=== PATIENT | female | born 1940 | race Caucasian/White ===

== ENCOUNTER 2016-09-29 11:30 | Emergency (ER) | payer MEDICARE ==
[~2016-09-29] VITALS: Ht 160 cm; Wt 55.0 kg
[~2016-09-29 11:30] MED LIST: BENA20 PO; CALC-137 PO; CYMB30CA PO; ECASA PO; OMEP20TA39 PO; PRAV80TA PO; TOPA200T4 PO; VITA100017 PO; VITA200T5 PO; tegretol
[2016-09-29 11:38] VITALS: BP 121/86; PULSE 86; RESP 16; TEMP 98.6; O2SAT 98
[2016-09-29] MEDS ORDERED: TOPA25TA8 PO (11:52)
[2016-09-29] MEDS ORDERED: ASPI-110 PO (11:52)
[2016-09-29] MEDS ORDERED: VITA10007 PO (11:52)
[2016-09-29] MEDS ORDERED: PRAV80TA2 PO (11:52)
[2016-09-29] MEDS ORDERED: OMEP20TA PO (11:52)
[2016-09-29] MEDS ORDERED: CARB200T PO (11:52)
[2016-09-29] MEDS ORDERED: BENA20TA PO (11:52)
[2016-09-29] MEDS ORDERED: CALC1TAB30 PO (11:52)
[2016-09-29] MEDS ORDERED: LIDOCAINE 1%/EPINEPHrine 1:100,000 SOLN 20 ML VIAL INFIL ONE (12:00)
--- NOTE | 2016-09-29 12:02 | PD ---
HPI Chief Complaint: Laceration/Skin Injury Time Seen by Provider: 12:01 Travel History International Travel<30 days: No Contact w/Intl Traveler<30days: No Traveled to known affect area: No History of Present Illness HPI Patient comes in for evaluation status post trip and fall. Patient was running after a [employer] people when she tripped on the sidewalk injuring her left knee and hitting side of her head. Patient denies any loss of consciousness, neck pain, numbness or tingling anywhere, chest pain, shortness of breath, change in vision, dizziness, nausea, or vomiting. Patient denies doing anything for this prior to coming to the emergency department. Patient reports only blood thinner she takes is aspirin a day. Patient's last tetanus shot was 2013. PFSH Past Medical History Hx Anticoagulant Therapy: Yes (ASPIRIN) Arthritis: Yes Blood Disorders: No Heart Rhythm Problems: No Cancer: No Cardiovascular Problems: Yes High Cholesterol: Yes Chest Pain: No Congestive Heart Failure: No Diabetes: No Diminished Hearing: No Endocrine: No Gastrointestinal Disorders: Yes (GERD) GERD: Yes Genitourinary: No Hypertension: Yes Immune Disorder: No Implanted Vascular Access Dvce: No Musculoskeletal: No Neurologic: Yes (TRIGEMINA NEURALGIA) Psychiatric: No Reproductive: No Respiratory: No ?: Not Past Surgical History Tonsillectomy: Yes Other Surgery: No Social History Alcohol Use: No Tobacco Use: No Substance Use: No Allergies-Medications (Allergen,Severity, Reaction): Coded Allergies: No Known Allergies (Verified , 09/29/16) Reported Meds & Prescriptions Reported Meds & Active Scripts Active Reported Topamax (Topiramate) 25 Mg Tab 25 Mg PO BID Carbamazepine 200 Mg Tab 400 Mg PO BID Omeprazole 20 Mg Tab 20 Mg PO DAILY Aspirin 81 (Aspirin) 81 Mg Tabdr 81 Mg PO DAILY Calcium 600 + D (Calcium Carbonate-Cholecalciferol) 600-200 Mg-Unit Tab 2 Tab PO DAILY Vitamin C (Ascorbic Acid) 1,000 Mg Tab 2,000 Mg PO DAILY Pravastatin 80 Mg Tab 80 Mg PO HS Benazepril (Benazepril HCl) 20 Mg Tab 20 Mg PO BID Review of Systems Except as stated in HPI: all other systems reviewed are Neg Physical Exam Narrative GENERAL: Well-developed, well nourished, in no acute distress, and non-ill appearing. SKIN: Warm and dry. Laceration of the left temporal and skin tear over her anterior left knee. HEAD: Atraumatic. Normocephalic. EYES: Pupils equal and round. EOMI. No scleral icterus. No injection or drainage. ENT: No nasal bleeding or discharge. Mucous membranes pink and moist. NECK: Trachea midline. Supple. No nuclear rigidity. RESPIRATORY: No accessory muscle use. No respiratory distress. MUSCULOSKELETAL: No obvious deformities. No clubbing. No cyanosis. No edema. Full range of motion. NEUROLOGICAL: Awake and alert. No obvious cranial nerve deficits. Motor grossly within normal limits. Normal speech. PSYCHIATRIC: Appropriate mood and affect; insight and judgment normal. Data Data Last Documented VS Vital Signs Date Time Temp Pulse Resp B/P Pulse Ox O2 Delivery O2 Flow Rate FiO2 09/29/16 11:38 98.6 86 16 121/86 98 Orders Lidocai-Epi 1%-1:100,000 Inj (Xylocaine- (09/29/16 12:00) Ct Brain W/O Iv Contrast(Rout) (09/29/16 ) Ct Cerv Spine W/O Contrast (09/29/16 ) Knee, Complete (4vws) (09/29/16 ) [facility] Medical Decision Making Medical Screen Exam Complete: Yes Emergency Medical Condition: Yes Differential Diagnosis Head injury, intracranial hemorrhage, fracture, strain, retained foreign body, laceration, abrasion, other Narrative Course Patient presents with head injury. There was no evidence of cranial or intracranial injury noted on CT of the head and no evidence of fracture or injury to cervical spine on C-spine CT. The patient has been behaving normally and no notable altered mental status. Maris score of 15. The neurologic exam is normal. The patient is awake and aware and motor sensory exams are normal. There is no clinical evidence to support intracranial injury or bleed. The laceration appeared clean and approximated well. There was no evidence to suggest foreign bodies. Visual and tactile exams were unremarkable. There was no evidence of neurovascular injury as well. The patient was irrigated with copious sterile normal saline and primary repair was performed. Please see procedure note. The patient was given signs and symptom warnings for infection, such as increasing pain, redness, swelling, associated heat, pus or fever. The patient was given instructions for timely follow up. The patient agreed with plan of care. Patient in no obvious distress upon re-evaluation. All pertinent Radiology result(s) discussed with patient/family. Any questions/concerns in reference to patient diagnosis/condition discussed and clarified prior to patient's discharge. Reinforced sheer importance of close follow up with patient's primary physician or primary care clinic. Instructed patient to return to ED immediately, if symptoms return/worsen. Pt showed understanding of above instructions. Further instructions and recommendations were detailed in discharge paperwork. Pt ambulated without difficulty out of ED at discharge. Procedures Procedure Narrative LACERATION REPAIR LOCATION: Left temporal at the hairline LENGTH: Proximately 1.5 cm. NUMBER OF STITCHES/BEN: 3 simple interrupted REPAIR: Verbal consent was obtained. The area of the laceration was cleaned and prepped. The laceration was infiltrated with lidocaine with epi. The wound was copiously irrigated and explored without evidence of foreign body, bony involvement, ligament injury, tendon injury, or neurovascular injury. The wound was closed using 5-0 Vicryl. This was a single layer repair. The patient was advised to keep the affected area as clean and dry as possible using soap and water. There were no complications. Patient tolerated the procedure well. Skin tear REPAIR LOCATION: Left anterior knee skin tear LENGTH: Approximately 2 cm C-shaped NUMBER OF STITCHES/BEN: 3 simple interrupted REPAIR: Verbal consent was obtained. The area of the laceration was cleaned and prepped. The laceration was infiltrated with lidocaine with epi. The wound was copiously irrigated and explored without evidence of foreign body, bony involvement, ligament injury, tendon injury, or neurovascular injury. The wound was closed using 5-0 Vicryl. This was a single layer repair. A sterile dressing was applied by nurse. The patient was advised to keep the affected area as clean and dry as possible using soap and water. There were no complications. Patient tolerated the procedure well. Diagnosis Primary Impression: Head injury Qualified Code: S09.90XA - Head injury, initial encounter Additional Impressions: Laceration Skin tear of left upper extremity Fall Qualified Code: W19.XXXA - Fall, initial encounter Patient Instructions: Care For Your Absorbable Stitches (ED), Facial Laceration (ED), General Instructions, Head Injury (ED), Skin Tear (ED) Additional Instructions: Follow-up with your primary care physician in this week for reevaluation. Keep wound dry and clean as possible using soap and water. Return to the emergency department if symptoms get worse. Do not participate in any activities that may cause another head injury until reevaluated and cleared by your primary care physician. Return to the emergency department immediately if any uncontrolled vomiting, change in mental status, inability to walk normally, worsening headache, or for other concerns. Disposition: 01 DISCHARGE HOME Condition: Stable Edd Carranza Sep 29, 2016 12:02
--- NOTE | 2016-09-29 12:26 | RADHPO ---
EXAM DATE/TIME: 09/29/2016 12:12 [facility] COMPARISON: No previous studies available for comparison. INDICATIONS : Left knee pain after fall. MEDICAL HISTORY : None. SURGICAL HISTORY : None. ENCOUNTER: Initial ACUITY: 1 day PAIN SCORE: 10/10 LOCATION: Left anterior knee FINDINGS: Four view examination of the left knee demonstrates no evidence of fracture or dislocation. Mild ost eoarthritis. Bony mineralization is normal. The articular surfaces are intact. The suprapatellar so ft tissues have a normal configuration. CONCLUSION: Mild osteoarthritis without fracture. Jean Marie Hicks MD on September 29, 2016 at 12:24 Board Certified Radiologist. This report was verified electronically.
--- NOTE | 2016-09-29 12:33 | RADHPO ---
EXAM DATE/TIME: 09/29/2016 12:19 [facility] COMPARISON: CT BRAIN W/O CONTRAST, December 26, 2015, 14:08. INDICATIONS : Fell and hit head this morning. RADIATION DOSE: 60.92 CTDIvol (mGy) MEDICAL HISTORY : Hypertension. SURGICAL HISTORY : Tonsillectomy. ENCOUNTER: Initial ACUITY: 1 day PAIN SCALE: 3/10 LOCATION: Left temporal TECHNIQUE: Multiple contiguous axial images were obtained of the head. Using automated exposure control and adj ustment of the mA and/or kV according to patient size, radiation dose was kept as low as reasonably a chievable to obtain optimal diagnostic quality images. FINDINGS: CEREBRUM: The ventricles are normal for age. No evidence of midline shift, mass lesion, hemorrhage or acute in farction. No extra-axial fluid collections are seen. POSTERIOR FOSSA: The cerebellum and brainstem are intact. The 4th ventricle is midline. The cerebellopontine angle i s unremarkable. EXTRACRANIAL: The visualized portion of the orbits is intact. SKULL: The calvaria is intact. No evidence of skull fracture. CONCLUSION: Negative trauma CT. Pro Harding MD on September 29, 2016 at 12:30 Board Certified Radiologist. This report was verified electronically.
--- NOTE | 2016-09-29 13:09 | RADHPO ---
EXAM DATE/TIME: 09/29/2016 12:19 [facility] COMPARISON: No previous studies available for comparison. INDICATIONS : Fell and hit head this morning. Neck pain. RADIATION DOSE: 25.76 CTDIvol (mGy) MEDICAL HISTORY : Hypertension. SURGICAL HISTORY : Tonsillectomy. ENCOUNTER: Initial ACUITY: 1 day PAIN SCALE: 3/10 LOCATION: neck TECHNIQUE: Volumetric scanning of the cervical spine was performed. Multiplanar reconstructions in the sagittal, coronal and oblique axial planes were performed. Using automated exposure control and adjustment o f the mA and/or kV according to patient size, radiation dose was kept as low as reasonably achievable to obtain optimal diagnostic quality images. FINDINGS: The sagittal reconstructions demonstrate that the vertebral bodies are intact and there are normal pr evertebral soft tissues. The dens is intact and there is a normal atlantoaxial relationship. There is a grade 1 anterospondylolisthesis of C4 on C5 approximately 4 mm. Degenerative disc changes are pres ent greatest at the C5-6 and C6-7 levels with disc space narrowing and hypertrophic change. There is mild retrolisthesis of C6 on C7 of approximately 2 mm. There is diffuse osteopenia. The axial images demonstrate that the vertebral bodies and posterior elements are intact. The soft ti ssues are within normal limits. There is no evidence of acute fracture or malalignment. Degenerative hypertrophic changes noted involving the left C3-4 facet. There are disc osteophyte complexes at the C5-6 and C6-7 levels. CONCLUSION: 1. No acute fracture. 2. Grade 1 anterior spondylolisthesis of C4 on C5 of approximately 4 mm. 3. Mild retrolisthesis of C6 on C7. 4. Degenerative disc and degenerative joint changes. Pro Harding MD on September 29, 2016 at 13:02 Board Certified Radiologist. This report was verified electronically.
== END 2016-09-29 13:43 | disposition home or self-care (01) ==
LOC: PHEFT 11:30
DX: S01.01XA Laceration without foreign body of scalp, initial encounter (principal); S81.012A Laceration without foreign body, left knee, initial encounter; W01.0XXA Fall on same level from slipping, tripping and stumbling without subsequent striking against object, initial encounter; Y93.02 Activity, running; Y92.480 Sidewalk as the place of occurrence of the external cause
CPT/HCPCS: 12001; 12011; 70450; 72125; 73564

== ENCOUNTER 2017-06-10 21:25 | Observation (INO) | payer MEDICARE ==
[~2017-06-10] VITALS: Ht 160 cm; Wt 58.5 kg
[~2017-06-10 21:25] MED LIST changes: +ASPI-110 PO; -BENA20 PO; +BENA20TA PO; -CALC-137 PO; +CALC1TAB30 PO; +CARB200T PO; -CYMB30CA PO; -ECASA PO; +GADODIAMIDE PF 287 MG/ML 20 ML VIAL (for RAD MRI) IV PUSH ONE; +OMEP20TA PO; -OMEP20TA39 PO; -PRAV80TA PO; +PRAV80TA2 PO; -TOPA200T4 PO; +TOPA25TA8 PO; -VITA100017 PO; +VITA10007 PO; -VITA200T5 PO; -tegretol
[2017-06-10 21:39] VITALS: BP 164/88; PULSE 88; RESP 18; TEMP 98.1; O2SAT 97
[2017-06-10 21:50] VITALS: BP 164/79; PULSE 80; RESP 20; TEMP 98; O2SAT 97
[2017-06-10] MEDS ORDERED: SODIUM CHLORIDE 0.9% FLUSH 10 ML FLUSH IVF PRN (22:00)
[2017-06-10 22:14] VITALS: O2SAT 97
[2017-06-10 22:14] LABS: AUTOMATED NEUTROPHIL # 3.9 TH/MM3 (1.8-7.7); BASOPHIL % 0.5 % (0.0-2.0); EOSINOPHIL # 0.1 TH/MM3 (0-0.4); EOSINOPHIL % 2.1 % (0.0-4.0); HEMATOCRIT 37.7 % (35.0-46.0); HEMO FLAGS DIFF FINAL; LYMPH % 20.1 % (9.0-44.0); LYMPHOCYTE # 1.1 TH/MM3 (1.0-4.8); MEAN CELL VOLUME 92.5 FL (80.0-100.0); MEAN CORPUSCULAR HGB CONC 32.4 % (32.0-36.0); MONO % 9.5 % (0.0-8.0); NEUT % 67.8 % (16.0-70.0); PLATELET COUNT 270 TH/MM3 (150-450); RED BLOOD COUNT 4.08 MIL/MM3 (4.00-5.30); WHITE BLOOD COUNT 5.6 TH/MM3 (4.0-11.0)
--- NOTE | 2017-06-10 22:22 | PD ---
HPI Chief Complaint: Altered Mental Status Time Seen by Provider: 21:48 Travel History International Travel<30 days: No Contact w/Intl Traveler<30days: No Traveled to known affect area: No History of Present Illness HPI Patient is a 77-year-old female with history of hypertension, hyperlipidemia, diabetes, presents to the emergency room with her family members for evaluation of altered mental status. As per pt's family, patient was last seen normal 2 hours prior to presentation to the emergency room. Reports that she came out of her room around 9;20 PM in a tshirt and underwear saying that she was tired and wanted to go to bed early. Pt's family reports that she never just wears a tshirt and underwear. Reports that she appeared to be acting altered tonight. Reports that she was slurring her speech, reports that she had an abnormal gait. Reports concerns for possible CVA. Family reports the patient speech has improved upon arrival to the emergency room, reports that her ataxia has also improved. Reports concerns as pt's on Tuesday (he was taken off of life support). Denies history of CVA in the past. Patient at this time denies headache/dizzyness. Denies chest pain/sob. Denies abdominal pain. Denies n/v. NO other c/o oat this time. PFSH Past Medical History Hx Anticoagulant Therapy: Yes (ASPIRIN) Arthritis: Yes Blood Disorders: No Heart Rhythm Problems: No Cancer: No Cardiovascular Problems: Yes High Cholesterol: Yes Chest Pain: No Congestive Heart Failure: No Diabetes: No Diminished Hearing: No Endocrine: No Gastrointestinal Disorders: Yes (GERD) GERD: Yes Genitourinary: No Hypertension: Yes Immune Disorder: No Implanted Vascular Access Dvce: No Musculoskeletal: No Neurologic: Yes (TRIGEMINA NEURALGIA) Psychiatric: No Reproductive: No Respiratory: No Past Surgical History Tonsillectomy: Yes Other Surgery: No Social History Alcohol Use: No Tobacco Use: No Substance Use: No Allergies-Medications (Allergen,Severity, Reaction): Coded Allergies: No Known Allergies (Verified , 09/29/16) Reported Meds & Prescriptions Reported Meds & Active Scripts Active Reported Topamax (Topiramate) 25 Mg Tab 25 Mg PO BID Carbamazepine 200 Mg Tab 400 Mg PO BID Omeprazole 20 Mg Tab 20 Mg PO DAILY Aspirin 81 (Aspirin) 81 Mg Tabdr 81 Mg PO DAILY Pravastatin 80 Mg Tab 80 Mg PO HS Benazepril (Benazepril HCl) 20 Mg Tab 20 Mg PO BID Review of Systems General / Constitutional: No: Fever Eyes: No: Visual changes HENT: No: Headaches Cardiovascular: No: Chest Pain or Discomfort Respiratory: No: Shortness of Breath Gastrointestinal: No: Abdominal Pain Genitourinary: No: Dysuria Musculoskeletal: No: Pain Skin: No Rash Neurologic: Positive: Ataxia, Slurred Speech, No: Weakness Psychiatric: No: Depression Endocrine: No: Polydipsia Hematologic/Lymphatic: No: Easy Bruising Physical Exam Narrative GENERAL: mild distress SKIN: Focused skin assessment warm/dry. HEAD: Atraumatic. Normocephalic. EYES: Pupils equal and round. No scleral icterus. No injection or drainage. ENT: No nasal bleeding or discharge. Mucous membranes pink and moist. NECK: Trachea midline. No JVD. CARDIOVASCULAR: Regular rate and rhythm. No murmur appreciated. RESPIRATORY: No accessory muscle use. Clear to auscultation. Breath sounds equal bilaterally. GASTROINTESTINAL: Abdomen soft, non-tender, nondistended. Hepatic and splenic margins not palpable. MUSCULOSKELETAL: No obvious deformities. No clubbing. No cyanosis. No edema. NEUROLOGICAL: Awake and alert. No obvious cranial nerve deficits. Motor grossly within normal limits. Patient with speech improved as per family, NIH scale 0 PSYCHIATRIC: Appropriate mood and affect; insight and judgment normal. Data Data Last Documented VS Vital Signs Date Time Temp Pulse Resp B/P (MAP) Pulse Ox O2 Delivery O2 Flow Rate FiO2 06/10/17 23:02 73 20 165/79 (107) Room Air 06/10/17 22:14 97 06/10/17 21:50 98.0 Orders Orders Electrocardiogram (06/10/17 22:00) Prothrombin Time / Inr (Pt) (06/10/17 22:00) Act Partial Throm Time (Ptt) (06/10/17 22:00) Complete Blood Count With Diff (06/10/17 22:00) Comprehensive Metabolic Panel (06/10/17 22:00) Creatine Kinase (Cpk) (06/10/17 22:00) Drug Screen, Random Urine (06/10/17 22:00) Troponin I (06/10/17 22:00) Urinalysis - C+S If Indicated (06/10/17 22:00) Ct Brain W/O Iv Contrast(Rout) (06/10/17 22:00) Chest, Single Ap (06/10/17 22:00) Ecg Monitoring (06/10/17 22:00) Iv Access Insert/Monitor (06/10/17 22:00) Oximetry (06/10/17 22:00) Blood Glucose (06/10/17 22:00) Sodium Chloride 0.9% Flush (Ns Flush) (06/10/17 22:00) Alcohol (Ethanol) (06/10/17 22:00) Aspirin Chew (Aspirin Chew) (06/10/17 23:30) Admit Order (Ed Use Only) (06/10/17 23:30) Clopidogrel (Plavix) (06/10/17 23:45) Labs Laboratory Tests Test 06/10/17 22:00 06/10/17 22:58 White Blood Count 5.6 TH/MM3 Red Blood Count 4.08 MIL/MM3 Hemoglobin 12.2 GM/DL Hematocrit 37.7 % Mean Corpuscular Volume 92.5 FL Mean Corpuscular Hemoglobin 30.0 PG Mean Corpuscular Hemoglobin Concent 32.4 % Red Cell Distribution Width 13.0 % Platelet Count 270 TH/MM3 Mean Platelet Volume 7.1 FL Neutrophils (%) (Auto) 67.8 % Lymphocytes (%) (Auto) 20.1 % Monocytes (%) (Auto) 9.5 % Eosinophils (%) (Auto) 2.1 % Basophils (%) (Auto) 0.5 % Neutrophils # (Auto) 3.9 TH/MM3 Lymphocytes # (Auto) 1.1 TH/MM3 Monocytes # (Auto) 0.5 TH/MM3 Eosinophils # (Auto) 0.1 TH/MM3 Basophils # (Auto) 0.0 TH/MM3 CBC Comment DIFF FINAL Differential Comment Prothrombin Time 10.5 SEC Prothromb Time International Ratio 1.0 RATIO Activated Partial Thromboplast Time 28.0 SEC Blood Urea Nitrogen 12 MG/DL Creatinine 0.76 MG/DL Random Glucose 117 MG/DL Total Protein 6.7 GM/DL Albumin 3.6 GM/DL Calcium Level 8.2 MG/DL Alkaline Phosphatase 81 U/L Aspartate Amino Transf (AST/SGOT) 16 U/L Alanine Aminotransferase (ALT/SGPT) 23 U/L Total Bilirubin 0.2 MG/DL Sodium Level 141 MEQ/L Potassium Level 3.8 MEQ/L Chloride Level 104 MEQ/L Carbon Dioxide Level 31.5 MEQ/L Anion Gap 6 MEQ/L Estimat Glomerular Filtration Rate 74 ML/MIN Total Creatine Kinase 176 U/L Troponin I LESS THAN 0.02 NG/ML Ethyl Alcohol Level 4 MG/DL Urine Color YELLOW Urine Turbidity SLIGHT Urine pH 7.0 Urine Specific [place] 1.015 Urine Protein NEG mg/dL Urine Glucose (UA) NEG mg/dL Urine Ketones NEG mg/dL Urine Occult Blood NEG Urine Nitrite NEG Urine Bilirubin NEG Urine Leukocyte Esterase TRACE Urine RBC 0-2 /hpf Urine WBC 3-5 /hpf Urine Squamous Epithelial Cells 0-5 /hpf Urine Amorphous Sediment MOD Urine Bacteria NONE /hpf Microscopic Urinalysis Comment CULT NOT INDICATED Urine Opiates Screen NEG Urine Barbiturates Screen NEG Urine Amphetamines Screen NEG Urine Benzodiazepines Screen NEG Urine Cocaine Screen NEG Urine Cannabinoids Screen NEG MDM Medical Decision Making Medical Screen Exam Complete: Yes Emergency Medical Condition: Yes Medical Record Reviewed: Yes Interpretation(s) EKG at 2212: NSR at 78bpm, qt/qtc: 377/410, incomplete rbbb Vital Signs Date Time Temp Pulse Resp B/P (MAP) Pulse Ox O2 Delivery O2 Flow Rate FiO2 06/10/17 22:21 Room Air 06/10/17 22:14 97 Room Air 06/10/17 21:50 98.0 80 20 164/79 (107) 97 06/10/17 21:39 98.1 88 18 164/88 (113) 97 Differential Diagnosis CVA, TIA, ICH, electrolyte abnormality Narrative Course Patient is a 77-year-old female who is brought to the emergency room for evaluation of altered mental status. As per patient's family members, patient has slurring of speech as well as ataxic gait. Reports that she was last seen normal 2 hours prior to presentation to the ER. Family reports that patient's symptoms have been resolving, reports improvement on speech as well as gait NIH scale currently 0, BS 108 Patient was placed on a rn cardiac rehab upon arrival to the emergency room. Ct of head ordered. lV ordered including labs. Plan to monitor patient and perform serial neurological evaluations Vital Signs Date Time Temp Pulse Resp B/P (MAP) Pulse Ox O2 Delivery O2 Flow Rate FiO2 06/10/17 23:02 73 20 165/79 (107) Room Air 06/10/17 22:21 Room Air 10/27/17 22:14 97 Room Air 06/10/17 21:50 98.0 80 20 164/79 (107) 97 06/10/17 21:39 98.1 88 18 164/88 (113) 97 Laboratory Tests Test 06/10/17 22:00 06/10/17 22:58 White Blood Count 5.6 TH/MM3 (4.0-11.0) Red Blood Count 4.08 MIL/MM3 (4.00-5.30) Hemoglobin 12.2 GM/DL (11.6-15.3) Hematocrit 37.7 % (35.0-46.0) Mean Corpuscular Volume 92.5 FL (80.0-100.0) Mean Corpuscular Hemoglobin 30.0 PG (27.0-34.0) Mean Corpuscular Hemoglobin Concent 32.4 % (32.0-36.0) Red Cell Distribution Width 13.0 % (11.6-17.2) Platelet Count 270 TH/MM3 (150-450) Mean Platelet Volume 7.1 FL (7.0-11.0) Neutrophils (%) (Auto) 67.8 % (16.0-70.0) Lymphocytes (%) (Auto) 20.1 % (9.0-44.0) Monocytes (%) (Auto) 9.5 % (0.0-8.0) Eosinophils (%) (Auto) 2.1 % (0.0-4.0) Basophils (%) (Auto) 0.5 % (0.0-2.0) Neutrophils # (Auto) 3.9 TH/MM3 (1.8-7.7) Lymphocytes # (Auto) 1.1 TH/MM3 (1.0-4.8) Monocytes # (Auto) 0.5 TH/MM3 (0-0.9) Eosinophils # (Auto) 0.1 TH/MM3 (0-0.4) Basophils # (Auto) 0.0 TH/MM3 (0-0.2) CBC Comment DIFF FINAL Differential Comment Prothrombin Time 10.5 SEC (9.8-11.6) Prothromb Time International Ratio 1.0 RATIO Activated Partial Thromboplast Time 28.0 SEC (24.3-30.1) Blood Urea Nitrogen 12 MG/DL (7-18) Creatinine 0.76 MG/DL (0.50-1.00) Random Glucose 117 MG/DL (74-106) Total Protein 6.7 GM/DL (6.4-8.2) Albumin 3.6 GM/DL (3.4-5.0) Calcium Level 8.2 MG/DL (8.5-10.1) Alkaline Phosphatase 81 U/L (45-117) Aspartate Amino Transf (AST/SGOT) 16 U/L (15-37) Alanine Aminotransferase (ALT/SGPT) 23 U/L (10-53) Total Bilirubin 0.2 MG/DL (0.2-1.0) Sodium Level 141 MEQ/L (136-145) Potassium Level 3.8 MEQ/L (3.5-5.1) Chloride Level 104 MEQ/L (98-107) Carbon Dioxide Level 31.5 MEQ/L (21.0-32.0) Anion Gap 6 MEQ/L (5-15) Estimat Glomerular Filtration Rate 74 ML/MIN (>89) Total Creatine Kinase 176 U/L (26-192) Troponin I LESS THAN 0.02 NG/ML Ethyl Alcohol Level 4 MG/DL (0-5) Urine Color YELLOW (YELLW/STRAW) Urine Turbidity SLIGHT (CLEAR) Urine pH 7.0 (5.0-8.5) Urine Specific [place] 1.015 (1.002-1.035) Urine Protein NEG mg/dL (NEG-TRACE) Urine Glucose (UA) NEG mg/dL (NEG) Urine Ketones NEG mg/dL (NEG) Urine Occult Blood NEG (NEG) Urine Nitrite NEG (NEG) Urine Bilirubin NEG (NEG) Urine Leukocyte Esterase TRACE (NEG) Urine RBC 0-2 /hpf (0-3) Urine WBC 3-5 /hpf (0-5) Urine Squamous Epithelial Cells 0-5 /hpf (0-5) Urine Amorphous Sediment MOD Urine Bacteria NONE /hpf (NONE) Microscopic Urinalysis Comment CULT NOT INDICATED Urine Amphetamines Screen NEG (NEG) Last Impressions Head CT 06/10/172199 Signed Impressions: Service Date/Time: Saturday, June 10, 2017 22:34 - CONCLUSION: Normal examination for a patient of this age. No significant change has occurred. Jung Conrad MD Chest X-Ray 06/10/172199 Signed Impressions: Service Date/Time: Saturday, June 10, 2017 22:13 - CONCLUSION: No acute disease. Minimal basilar scarring. Jung Conrad MD Patient reevaluated, speech has improved since her initial evaluation in the ER. Patient with most likely a TIA. Plan to obs in the hospital for further workup. All labs and all studies were reviewed with patient as well as her family members in detail. Case reviewed with Dr. Sandhu who accepts pt to his service, request plavix to be given at this time Diagnosis Primary Impression: tia vs cva Admitting Information Admitting Physician Requests: Observation Jinny Jimenez DO Jun 10, 2017 22:21
[2017-06-10 22:24] LABS: CHLORIDE 104 MEQ/L (98-107); POTASSIUM 3.8 MEQ/L (3.5-5.1); SODIUM (NA) 141 MEQ/L (136-145)
[2017-06-10 22:28] LABS: ANION GAP 6 MEQ/L (5-15); BICARBONATE 31.5 MEQ/L (21.0-32.0); BLOOD UREA NITROGEN 12 MG/DL (7-18)
[2017-06-10 22:29] LABS: PROTHROMBIN TIME - PATIENT 10.5 SEC (9.8-11.6)
[2017-06-10 22:31] LABS: ALT (GPT) 23 U/L (10-53); AST (GOT) 16 U/L (15-37); GLOMERULAR FILTRATION RATE 74 ML/MIN (>89)
[2017-06-10 22:32] LABS: TOTAL BILIRUBIN ADULT 0.2 MG/DL (0.2-1.0)
--- NOTE | 2017-06-10 22:32 | RADRPT ---
EXAM DATE/TIME: 06/10/2017 22:13 [facility] COMPARISON: CHEST SINGLE AP, December 26, 2015, 14:42. INDICATIONS : Shortness of breath. MEDICAL HISTORY : Hypertension. SURGICAL HISTORY : Tonsillectomy. ENCOUNTER: Initial ACUITY: 1 day PAIN SCORE: 0/10 LOCATION: Bilateral chest FINDINGS: A single view of the chest demonstrates the lungs to be symmetrically aerated without evidence of mas s, infiltrate or effusion. The cardiomediastinal contours are unremarkable. Osseous structures are intact. CONCLUSION: No acute disease. Minimal basilar scarring. Jung Conrad MD on June 10, 2017 at 22:29 Board Certified Radiologist. This report was verified electronically.
[2017-06-10 22:33] LABS: ALKALINE PHOSPHATASE 81 U/L (45-117); CREATINE KINASE 176 U/L (26-192)
[2017-06-10 22:39] LABS: ALCOHOL 4 MG/DL (0-5)
--- NOTE | 2017-06-10 22:53 | RADRPT ---
EXAM DATE/TIME: 06/10/2017 22:34 [facility] COMPARISON: CT BRAIN W/O CONTRAST, September 29, 2016, 12:19. INDICATIONS : Altered mental status. RADIATION DOSE: 56.97 CTDIvol (mGy) MEDICAL HISTORY : Cardiovascular disease. Hypertension. Gastroesophageal reflux disease. SURGICAL HISTORY : Tonsillectomy. ENCOUNTER: Initial ACUITY: 1 day PAIN SCALE: 0/10 LOCATION: cranial TECHNIQUE: Multiple contiguous axial images were obtained of the head. Using automated exposure control and adj ustment of the mA and/or kV according to patient size, radiation dose was kept as low as reasonably a chievable to obtain optimal diagnostic quality images. DICOM format image data is available electro nically for review and comparison. FINDINGS: CEREBRUM: The ventricles are normal for age. No evidence of midline shift, mass lesion, hemorrhage or acute in farction. No extra-axial fluid collections are seen. POSTERIOR FOSSA: The cerebellum and brainstem are intact. The 4th ventricle is midline. The cerebellopontine angle i s unremarkable. EXTRACRANIAL: The visualized portion of the orbits is intact. SKULL: The calvaria is intact. No evidence of skull fracture. CONCLUSION: Normal examination for a patient of this age. No significant change has occurred. Jung Conrad MD on June 10, 2017 at 22:50 Board Certified Radiologist. This report was verified electronically.
[2017-06-10 23:02] VITALS: BP 165/79; PULSE 73; RESP 20
[2017-06-10 23:03] LABS: BLOOD, URINE NEG (NEG); GLUCOSE,URINE NEG (NEG); KETONE, URINE NEG (NEG); NITRITE,URINE NEG (NEG)
[2017-06-10 23:10] LABS: COMMENT (UR) CULT NOT INDICATED; CULTURE IF INDICATED CULT NOT INDICATED; RBC, URINE 0-2 /hpf (0-3); SQUAMOUS EPITHELIAL CELL URINE 0-5 /hpf (0-5); URINE COLOR YELLOW (YELLW/STRAW)
[2017-06-10] MEDS ORDERED: CLOPIDOGREL 75 MG TAB PO ONE (23:45)
[2017-06-11] MEDS: ASPIRIN 81 MG CHEW TAB CHEW ONE ×2 (00:18→00:23)
--- NOTE | 2017-06-11 01:39 | RADRPT ---
EXAM DATE/TIME: 06/11/2017 01:25 [facility] COMPARISON: MRI BRAIN W/O CONTRAST, December 27, 2015, 15:50. CT BRAIN W/O CONTRAST, June 10, 2017, 22:34. INDICATIONS : Slurred speech. MEDICAL HISTORY : Hypertension. SURGICAL HISTORY : None. ENCOUNTER: Initial ACUITY: 1 day PAIN SCORE: 0/10 LOCATION: head TECHNIQUE: Multiplanar, multisequence MRI of the brain was performed without contrast. FINDINGS: CEREBRUM: The ventricles are normal for age. No evidence of midline shift, mass lesion, hemorrhage or acute in farction. No extraaxial fluid collections are seen. The pituitary gland and suprasellar cistern are normal in configuration. WHITE MATTER: Scattered chronic subcentimeter foci of flair signal abnormality are again seen in the periventricula r white matter. POSTERIOR FOSSA: The cerebellum and brainstem are intact. The 4th ventricle is midline. The cerebellopontine angle is unremarkable. The cerebellar tonsils are normal in position. DIFFUSION IMAGING: No focal areas of restricted diffusion are seen. No evidence of acute infarction. EXTRACRANIAL: The visualized portions of the orbits and paranasal sinuses are unremarkable. CONCLUSION: No acute infarct or other acute intracranial abnormality. Chronic, stable white matter changes. Anish Bauer MD on June 11, 2017 at 1:36 Board Certified Radiologist. This report was verified electronically.
[2017-06-11 01:50] VITALS: BP 176/93; PULSE 74; RESP 20; TEMP 96.5; O2SAT 93
--- NOTE | 2017-06-11 02:01 | RADRPT ---
EXAM DATE/TIME: 06/11/2017 01:25 [facility] COMPARISON: MRA BRAIN W/O CONTRAST, December 27, 2015, 15:42. INDICATIONS : Slurred speech. MEDICAL HISTORY : Hypertension. SURGICAL HISTORY : None. ENCOUNTER: Initial ACUITY: 1 day PAIN SCORE: 0/10 LOCATION: head Please note a normal MRA of the brain does not entirely exclude the possibility of a small aneurysm, nor the possibility of distal intracranial vessel disease. TECHNIQUE: 3D time of flight MRA was performed. Source images, multiplanar STS MIP, and 3D volume MIP reconstru ctions were reviewed. FINDINGS: There is excellent visualization of the major intracranial arteries out to the second-order branch ve ssels. There is no evidence for aneurysm, vessel truncation or stenosis, and no evidence for vascula r malformation. CONCLUSION: No acute abnormality of the intracranial arteries. Anish Bauer MD on June 11, 2017 at 1:57 Board Certified Radiologist. This report was verified electronically.
--- NOTE | 2017-06-11 02:12 | RADRPT ---
EXAM DATE/TIME: 06/11/2017 01:25 [facility] COMPARISON: MRA CAROTIDS W CONTRAST, December 27, 2015, 16:06. INDICATIONS : Stroke. CONTRAST: 20 cc Omniscan (gadodiamide) IV MEDICAL HISTORY : Hypertension. SURGICAL HISTORY : None. ENCOUNTER: Initial ACUITY: 1 day PAIN SCORE: 0/10 LOCATION: neck Percent stenosis is calculated using the diameter of the stenotic region over the diameter of the nor mal distal internal carotid artery. TECHNIQUE: Bolus infused MRA of the extracranial circulation was performed using a neurovascular coil. Post pro cessing was performed including rotating subvolume maximum intensity projections of each carotid jainna ry, rotating full volume maximum intensity projections of both carotid arteries, sagittal and coronal sliding thin slab reformations of each carotid artery, and left oblique sliding thin slab reformatio n through the aortic arch to include the origin of the arch branch vessels. FINDINGS: AORTIC ARCH: There is a three vessel origin of the great vessels from the aorta. No evidence of ostial narrowing. RIGHT CAROTID: The common carotid artery is intact. The carotid bulb has a normal configuration without ulceration or narrowing. The internal carotid artery lumen is smooth without stenosis. The external carotid ar keyona is intact. LEFT CAROTID: The common carotid artery is intact. The carotid bulb has a normal configuration without ulceration or narrowing. The internal carotid artery lumen is smooth without stenosis. The external carotid ar keyona is intact. VERTEBRALS: The vertebral arteries have a symmetric diameter. No stenotic lesions are seen. CONCLUSION: Normal carotid MRA. Anish Bauer MD on June 11, 2017 at 2:11 Board Certified Radiologist. This report was verified electronically.
[2017-06-11 07:00] VITALS: PULSE 62
[2017-06-11 08:00] VITALS: BP 160/76; PULSE 70; RESP 18; TEMP 97.9; O2SAT 95
[2017-06-11] MEDS ORDERED: PILL SPLITTER OTHER PRN (08:15)
[2017-06-11] MEDS ORDERED: TOPIRAMATE 25 MG TAB PO SCH (09:00)
[2017-06-11] MEDS ORDERED: amLODIPine BESYLATE 5 MG TAB PO SCH (09:00)
[2017-06-11] MEDS ORDERED: LISINOPRIL 20 MG TAB PO SCH (09:00)
[2017-06-11] MEDS ORDERED: PANTOPRAZOLE SOD 20 MG DELAYED RELEASE TAB PO SCH (09:00)
[2017-06-11] MEDS ORDERED: carBAMazepine 200 MG TAB PO SCH (09:00)
--- NOTE | 2017-06-11 09:45 | MH ---
cc: NATALY MARTINEZ M.D. DATE OF ADMISSION: 06/10/2017 ADMITTING DIAGNOSIS: 1. Altered mental status possible TIA, rule out elevated Tegretol level. 2. Hypertension 3. Hyperlipidemia 4. Trigeminal neuralgia 5. Osteoporosis 6. Gastroesophageal reflux disease 7. Atherosclerosis of the aorta. PERTINENT HISTORY The 77-year-old white female has been under increased stress recently due to the illness of her , who just earlier this week. She has history of hypertension, hyperlipidemia and trigeminal neuralgia. She is on carbamazepine topiramate for her trigeminal neuralgia. She earlier this month had a increase in her dose of Tegretol from four 200 mg tablets to five tablets. She yesterday was noted by her family to displace some unusual behavior, she came out her room last night around 9:20 in a JOAO shirt and underwear and stated that she was tired and wanted to go to bed early. The family reports she never just wears a T-shirt underwear. She also was maybe slurring her speech and was reported to have maybe a little slight abnormal gait, they brought her to the emergency room, by the time she got here all of symptoms had pretty much improved with no slurred speech and no ataxia in the emergency department, a CT brain scan was negative. She was subsequently admitted for observation. And further evaluation. She was already on a baby aspirin a day so she was given Plavix in the emergency department. They did not do a Tegretol level in the emergency department which I am going to order now. She had a similar problem, neurologically about a year ago and had MRI of the brain, MRA of the head and MRA of the carotids it was negative. It was determined then her symptoms may have been related to her Tegretol then. She sees Dr. Kim Hernandez a neurologist locally for her trigeminal neuralgia. MEDICAL HISTORY She is under treatment for hypertension, hyperlipidemia, trigeminal neuralgia. She on takes medication for gastroesophageal reflux disease. She has osteoporosis. She denies any asthma, TB, pneumonia or lung disease. Denies any diabetes. No cancer. No thyroid disease. No prior stroke or seizures and denies any peptic ulcer disease. No colon disease. She had a negative colonoscopy on 02/10/2011. She had an esophagogastroduodenoscopy that showed gastritis and she had an esophageal ring that was dilated on 02/10/2011. PAST SURGICAL HISTORY: Surgical histories had a tonsillectomy and adenoidectomy and a colonoscopy 02/10/2011 as mentioned, esophagogastroduodenoscopy 02/10/2011 with dilation of esophageal ring. ALLERGIES None. MEDICATIONS 1. She is on pravastatin 80 mg a day. 2. Carbamazepine she is taking 200 mg's, 2 tablets at 06:00 a.m. 1 tablet at 02:00 p.m. and 2 tablets at 06:00 p.m. 3. Topiramate 25 mg twice a day. 4. Aspirin 81 mg a day. 5. Benazepril 20 mg b.i.d. 6. Omeprazole 20 mg a day. FAMILY HISTORY Her mother at 63 of heart attack. Father in his late 70s of heart attack. SOCIAL HISTORY She just was recently this week, her passing away while in the hospital. She does not use alcohol. She quit smoking in her 40s smoked a pack a day for 20 years. 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 REVIEW OF SYSTEMS GENERAL: No fever, chills or sweats. HEAD, EYES, EARS, NOSE, AND THROAT: No vision complaints. No ear pain or mouth symptoms. She does get facial pain at times from her trigeminal neuralgia. CARDIOVASCULAR SYSTEM: No chest pain, orthopnea, PND. No palpitation she had a negative treadmill stress test back in 2014. PULMONARY: No shortness of breath or cough. GASTROINTESTINAL: No constipation, diarrhea, melena, rectal bleeding. No heartburn, indigestion. GENITOURINARY: She gets just some minimal stress incontinence with coughing or laughing no hematuria or dysuria. EXTREMITIES: Without edema. SKIN: Without significant rash. NEUROLOGIC: As mentioned. PHYSICAL EXAMINATION: IN GENERAL: A pleasant white female in no acute Distress. VITAL SIGNS : Blood pressure is a little high at 176/93, temperature 96.5, pulse 74, respirations 20, O2 sats have been in the 90s. HEAD, EARS, EYES, NOSE, AND THROAT: Tympanic membranes clear. Pupils equal. Sclerae nonicteric. Nose without lesion. Mouth without inflammation or lesion. NECK: Without bruit. No JVD. HEART: Regular rate and rhythm. No murmur. LUNGS: Clear. ABDOMEN: Soft, nontender, no mass. EXTREMITIES: Pulses palpated both feet. No edema. No calf tenderness. SKIN: No rash. NEUROLOGIC: Oriented x3. Cranial nerves appear intact. Motor strength is symmetrical sensation intact, I did not ambulate her LABORATORY TESTING: Complete blood count was normal. Her glomerular filtration rate was 74 with normal BUN, creatinine and electrolytes, random glucose 117, AST, ALT alkaline phosphatase, creatinine kinase with troponin were normal. Total protein albumin normal B12 level was normal TSH level normal. Urine drug screen was normal. Urinalysis was unremarkable. Imaging study showed a normal CT brain scan Chest x-ray was unremarkable MRA of the neck was normal. Carotid MRA. MRA of the head showed no acute abnormality. The intracranial arteries. MRI of the brain showed no acute infarct or acute intracranial abnormalities, stable white matter changes. ASSESSMENT 1. Episode of altered mental status and questionable slurring of speech and gait disturbance. 2. Questionable TIA versus related to carbamazepine 3. Hypertension 4. Hyperlipidemia 5. Gastroesophageal reflux disease 6. Osteoporosis. 7. Atherosclerosis of the aorta. 8. Trigeminal neuralgia. PLAN She has been worked up with the imaging studies that have come back negative A 2-D echo has yet to be done. We did give her clopidogrel last night and will keep her on that. A neurology consult has been requested I am going to check a carbamazepine level. I will and back her dose back to 4 tablets total a day of the carbamazepine from five since these symptoms have occurred since recent increase in her dose by 1 pill. ] She is doing well now so if neurology has not problem. We will maybe be able to send her home later today and she can follow up with her neurologist, Dr. Hernandez as an outpatient. I will add amlodipine 2.5 mg a day for her blood pressure she will need to follow up with Dr. De La O for her repeat blood pressure check within a week also. She will be maintained on her other medications. We will ambulate her with assistance. MD KADEEM Reveles/celine /8:14 AM /9:15 AM
[2017-06-11 12:00] VITALS: BP 146/70; PULSE 70; RESP 18; TEMP 98; O2SAT 96
[2017-06-11 12:13] LABS: HDL CHOLESTEROL 102.5 MG/DL (40.0-60.0)
--- NOTE | 2017-06-11 13:05 | MB ---
cc: KYLAH MON M.D. DATE OF CONSULTATION: 06/11/2017 DATE OF : 1940, AGE 77 REASON FOR CONSULTATION Possible TIA. HISTORY OF PRESENT ILLNESS A pleasant 77-year-old woman who has been having a lot of stress recently, lost her Tuesday, has not been sleeping well, went to bed last night early, they went out to dinner to [employer] and she was sleepy when they got home. She went to bed but shortly thereafter came out in a T-shirt and underwear which is unusual for her. She was noted to be a little bit off balance, possible slurring of speech, they brought her to the ER. She was noted also in the ER looking at her phone not knowing what to do with it. Shortly after being in the ER over an hour or so she improved greatly. A CT was done and it was negative. They gave her Plavix. She was already on Baby Aspirin. She also has a history of trigeminal neuralgia for which she takes topiramate and Tegretol. Tegretol level is still pending. There is a history also of hypertension, hyperlipidemia and the trigeminal neuralgia, also reflux disease. PAST SURGICAL HISTORY 1. Tonsillectomy. 2. Adenoidectomy. 3. Colonoscopy. 4. EGD with dilatation of esophageal ring in 2010. ALLERGIES NONE. HOME MEDICATIONS 1. Pravastatin. 2. Tegretol. 3. Topiramate. 4. Baby Aspirin. 5. Omeprazole. FAMILY HISTORY Mother at 62 of a heart attack, father in the 70s of a heart attack. SOCIAL HISTORY She just recently became a . Does not drink. Quit smoking 20 years ago. 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 PHYSICAL EXAMINATION VITAL SIGNS: Temperature is 97.9, pulse 70, respiratory rate is 18, blood pressure 160/76, sating at 95% on room air. NECK: Neck is supple. No carotid bruits auscultated. HEART: Heart is regular. No murmurs. NEUROLOGIC: She is awake and alert. She is oriented and fluent. Pupils reactive. Visual wise full. Face symmetric. Tongue midline. Motor olguin there is no drift or leg lag. Cerebellar testing is normal. DTRs are 1 to 2+. Toes withdrawal. Sensory is normal. Gait is withheld. LABORATORY DATA Her CBC is unremarkable. Coag panel is normal. Chemistries were intact as well except B12 slightly low at 386. Toxicology negative. Her Tegretol level is pending. Urine: Trace leukocyte esterase. IMAGING Imaging of the brain, [place] of [place] and carotids were all without acute findings or intracranial disease. Echo is pending. IMPRESSION Probable TIA in a 77-year-old woman with hypertension and hyperlipidemia. Doubt Tegretol toxicity however we will go ahead and get a Tegretol level, check a lipid panel, change her over to Plavix 75 mg daily. Echocardiogram is pending. I would supplement her with oral B12 1000 mcg daily, have permissible hypertension today, have her get out of bed with physical therapy for an evaluation, and if her workup is unremarkable from my perspective she can be discharged either later today or tomorrow, and have her followup with Neurology in two weeks as an outpatient. Continue current care recommendations. MD LUIS ARMANDO Pritchett/CHRISTIANO /10:10 AM /12:35 PM
[2017-06-11 15:00] VITALS: PULSE 70
[2017-06-11] MEDS ORDERED: PLAV75TA29 PO (16:52)
--- NOTE | 2017-06-11 16:55 | HHI.FF ---
Face to Face Verification Diagnosis: (1) TIA (transient ischemic attack) (2) Hypertension Physical Therapy Order: Evaluate and Treat Home Health Nursing Order: Medical education Medication education-adverse effect Nursing assessment with vital signs I have seen patient Lamar Keita on 06/11/17. My clinical findings support the need for the requested home health care services because: Med compliance is questionable I certify that my clinical findings support that this patient is homebound because: Need for psychosocial assistance Needs help to make sure she is taking her medications appropriately and monitor her blood pressure Mark Sandhu MD Jun 11, 2017 16:55
[2017-06-11] MEDS ORDERED: PRAVASTATIN SOD 80 MG TAB PO SCH (21:00)
[2017-06-12] MEDS ORDERED: CLOPIDOGREL 75 MG TAB PO SCH (09:00)
--- NOTE | 2017-06-12 21:04 | EKG ---
Date Performed: 06/10/2017 Time Performed: 22:12:48 PTAGE: 77 years EKG: Sinus rhythm INCOMPLETE RIGHT BUNDLE BRANCH BLOCK NONSPECIFIC T-WAVE ABNORMALITY BORDERLINE ECG PREVIOUS TRACING : 12/26/2015 14.27 DOCTOR: Melvin Eric Interpretating Date/Time 06/12/2017 20:55:32
== END 2017-06-11 18:18 | disposition home or self-care (01) ==
LOC: PHED 21:25 → PHEDA 23:33 → PH3A 06-11 01:40
PROVIDERS: ADMIT Family Medicine; ATTEND Family Medicine
DX: G45.9 Transient cerebral ischemic attack, unspecified (principal); I10 Essential (primary) hypertension; E78.5 Hyperlipidemia, unspecified; G50.0 Trigeminal neuralgia; I70.0 Atherosclerosis of aorta; E11.9 Type 2 diabetes mellitus without complications; K21.9 Gastro-esophageal reflux disease without esophagitis; M81.0 Age-related osteoporosis without current pathological fracture; R94.31 Abnormal electrocardiogram [ECG] [EKG]; Z87.891 Personal history of nicotine dependence
CPT/HCPCS: 70450; 70544; 70548; 70551; 71010; 80053; 80061; 80156; 80307; 81001; 82550; 82607; 84443; 84484; 85025; 85610; 85730; 93005; 97162; 99285; A9579; G0378; G8987; G8988

== ENCOUNTER 2017-06-27 21:11 | Observation (INO) | payer MEDICARE ==
[~2017-06-27] VITALS: Ht 167.6 cm; Wt 60.0 kg
[~2017-06-27 21:11] MED LIST changes: -ASPI-110 PO; -CALC1TAB30 PO; -GADODIAMIDE PF 287 MG/ML 20 ML VIAL (for RAD MRI) IV PUSH ONE; -OMEP20TA PO; +OMEP20TA93 PO; +PLAV75TA29 PO; -TOPA25TA8 PO; +TOPI25 PO; -VITA10007 PO
[2017-06-27 21:32] VITALS: BP 171/81; PULSE 121; RESP 20; TEMP 99.3; O2SAT 93
[2017-06-27] MEDS ORDERED: TOPIRAMATE 25 MG TAB PO ONE (21:45)
[2017-06-27] MEDS ORDERED: SODIUM CHLOR 0.9% 1000 ML INJ 1,000 ML IV ONE (21:45)
[2017-06-27] MEDS ORDERED: carBAMazepine 200 MG TAB PO ONE (21:45)
--- NOTE | 2017-06-27 21:46 | PD ---
HPI Chief Complaint: Altered Mental Status Time Seen by Provider: 21:14 Travel History International Travel<30 days: No Contact w/Intl Traveler<30days: No Traveled to known affect area: No History of Present Illness HPI Diagnoses a 77-year-old female with a history of hypertension, hyperlipidemia, trigeminal neuralgia, recent TIA, presents today at the request of her family members for her not acting her normal self. According to EMS, neighbor saw her and thought she was acting slightly more bizarre than normal. They called her daughter & and the daughter eventually called 911 for evaluation. The patient denies any issues. She is able to answer questions and able to tell is what medication she is on. The patient does state that she has trigeminal neuralgia and has missed her evening medications. She is requesting that we give her those so that she does not have recurrent pain. Someone told EMS that she was having very frequency. The patient denies this at this time. The patient does have tachycardia with a heart rate in the 120s. Originally the fire medics took a temperature and found her temperature to be 101.4. [facility] states they retested at it and it was 98.6. Urine no other complaints time of my examination. PFSH Past Medical History Hx Anticoagulant Therapy: Yes (baby ASA) Arthritis: Yes Asthma: No Blood Disorders: No Anxiety: No Depression: No Heart Rhythm Problems: No Cancer: No Cardiovascular Problems: Yes (HTN) High Cholesterol: Yes Chest Pain: No Congestive Heart Failure: No COPD: No Diabetes: No Diminished Hearing: Yes (wears hearing aids) Endocrine: No Gastrointestinal Disorders: Yes (GERD) GERD: Yes Genitourinary: No Hypertension: Yes Immune Disorder: No Implanted Vascular Access Dvce: No Musculoskeletal: No Neurologic: Yes (TRIGEMINA NEURALGIA) Psychiatric: No Reproductive: No Respiratory: No Sleep Apnea: No Thyroid Disease: No Tetanus Vaccination: Unknown : 2 Para: 2 Past Surgical History Tonsillectomy: Yes Other Surgery: No Social History Alcohol Use: No Tobacco Use: No Substance Use: No Allergies-Medications (Allergen,Severity, Reaction): Coded Allergies: No Known Allergies (Verified Adverse Reaction, Unknown, 06/27/17) Reported Meds & Prescriptions Reported Meds & Active Scripts Active Plavix (Clopidogrel Bisulfate) 75 Mg Tab 75 Mg PO DAILY MDD 75mg 30 Days Reported Topamax (Topiramate) 25 Mg Tab 25 Mg PO BID Carbamazepine 200 Mg Tab 400 Mg PO BID Omeprazole 20 Mg Tab 20 Mg PO DAILY Pravastatin 80 Mg Tab 80 Mg PO HS Benazepril (Benazepril HCl) 20 Mg Tab 20 Mg PO BID Review of Systems Except as stated in HPI: all other systems reviewed are Neg General / Constitutional: Positive: Fever, No: Chills (reported) HENT: No: Headaches, Lightheadedness Cardiovascular: Positive: Tachycardia, No: Chest Pain or Discomfort, Palpitations, Irregular Rhythm Respiratory: No: Cough, Shortness of Breath Gastrointestinal: No: Nausea, Vomiting Genitourinary: Positive: Frequency, No: Dysuria (reported earlier, patient denies now), Incontinence Musculoskeletal: No: Weakness, Pain Skin: No Rash, No Lesions Neurologic: Positive: Change in Mentation (slightly confused per friends.), No : Weakness, Dizziness, Headache Physical Exam Narrative GENERAL: Well-developed well-nourished female in no acute respiratory distress. SKIN: Focused skin assessment warm/dry. HEAD: Atraumatic. Normocephalic. EYES: No scleral icterus. No injection or drainage. ENT: No nasal bleeding or discharge. Mucous membranes pink and moist. NECK: Trachea midline. Supple. CARDIOVASCULAR: Sinus tach with a rate of 120. No murmur appreciated. RESPIRATORY: No accessory muscle use. Clear to auscultation. Breath sounds equal bilaterally. GASTROINTESTINAL: Abdomen soft, non-tender, nondistended. Hepatic and splenic margins not palpable. MUSCULOSKELETAL: No obvious deformities. No clubbing. No cyanosis. No edema. NEUROLOGICAL: Awake and possibly slightly confused however she is able to answer where she has her name the day and the year. No obvious cranial nerve deficits. Motor grossly within normal limits. Normal speech. Data Data Last Documented VS Vital Signs Date Time Temp Pulse Resp B/P (MAP) Pulse Ox O2 Delivery O2 Flow Rate FiO2 06/27/17 22:24 121 20 98 Nasal Cannula 06/27/17 21:32 99.3 171/81 (111) Orders Orders Electrocardiogram (06/27/17 21:20) Complete Blood Count With Diff (06/27/17 21:20) Comprehensive Metabolic Panel (06/27/17 21:20) Ckmb (Isoenzyme) Profile (06/27/17 21:20) Troponin I (06/27/17 21:20) Blood Culture (06/27/17 21:20) Urinalysis - C+S If Indicated (06/27/17 21:20) Thyroid Stimulating Hormone (06/27/17 21:20) Chest, Single Ap (06/27/17 21:20) Iv Access Insert/Monitor (06/27/17 21:20) Ecg Monitoring (06/27/17 21:20) Oximetry (06/27/17 21:20) Ct Brain W/O Iv Contrast(Rout) (06/27/17 21:35) Sodium Chlor 0.9% 1000 Ml Inj (Ns 1000 M (06/27/17 21:45) Carbamazepine (Tegretol) (06/27/17 21:45) Topiramate (Topamax) (06/27/17 21:45) CKMB (06/27/17 21:20) CKMB% (06/27/17 21:20) Carbamazepine (Tegretol) (06/27/17 21:20) Admit Order (Ed Use Only) (06/28/17 00:53) Potassium Chloride Eff (K-[place] Cl Eff) (06/28/17 01:00) Labs Laboratory Tests Test 06/27/17 21:20 White Blood Count 14.3 TH/MM3 Red Blood Count 4.02 MIL/MM3 Hemoglobin 12.6 GM/DL Hematocrit 38.1 % Mean Corpuscular Volume 94.7 FL Mean Corpuscular Hemoglobin 31.4 PG Mean Corpuscular Hemoglobin Concent 33.1 % Red Cell Distribution Width 13.7 % Platelet Count 246 TH/MM3 Mean Platelet Volume 7.8 FL Neutrophils (%) (Auto) 90.0 % Lymphocytes (%) (Auto) 3.3 % Monocytes (%) (Auto) 6.4 % Eosinophils (%) (Auto) 0.1 % Basophils (%) (Auto) 0.2 % Neutrophils # (Auto) 12.9 TH/MM3 Lymphocytes # (Auto) 0.5 TH/MM3 Monocytes # (Auto) 0.9 TH/MM3 Eosinophils # (Auto) 0.0 TH/MM3 Basophils # (Auto) 0.0 TH/MM3 CBC Comment DIFF FINAL Differential Comment Urine Color YELLOW Urine Turbidity CLEAR Urine pH 8.0 Urine Specific [place] 1.013 Urine Protein TRACE mg/dL Urine Glucose (UA) NEG mg/dL Urine Ketones 10 mg/dL Urine Occult Blood NEG Urine Nitrite NEG Urine Bilirubin NEG Urine Urobilinogen LESS THAN 2.0 MG/DL Urine Leukocyte Esterase TRACE Urine RBC LESS THAN 1 /hpf Urine WBC 2 /hpf Urine Squamous Epithelial Cells 1 /hpf Urine Mucus FEW /lpf Microscopic Urinalysis Comment CULT NOT INDICATED Blood Urea Nitrogen 13 MG/DL Creatinine 0.78 MG/DL Random Glucose 104 MG/DL Total Protein 7.1 GM/DL Albumin 3.6 GM/DL Calcium Level 8.3 MG/DL Alkaline Phosphatase 84 U/L Aspartate Amino Transf (AST/SGOT) 20 U/L Alanine Aminotransferase (ALT/SGPT) 21 U/L Total Bilirubin 0.3 MG/DL Sodium Level 138 MEQ/L Potassium Level 3.4 MEQ/L Chloride Level 103 MEQ/L Carbon Dioxide Level 23.6 MEQ/L Anion Gap 11 MEQ/L Estimat Glomerular Filtration Rate 72 ML/MIN Total Creatine Kinase 117 U/L Creatine Kinase MB 1.6 NG/ML Troponin I 0.05 NG/ML Thyroid Stimulating Hormone 3rd Gen 0.658 uIU/ML Carbamazepine (Tegretol) Level 11.4 MCG/ML [facility] Medical Decision Making Medical Screen Exam Complete: Yes Emergency Medical Condition: Yes Differential Diagnosis TIA versus sepsis versus CVA versus metabolic drainage Narrative Course 77-year-old female presents at the request of her family after she was noted to be slightly altered. Paramedics arrived and found a temperature of 101.4. Repeat was 98.6 by EMS/[facility]. The patient is noted to be tachycardic in the 120s. Distal report was that she was having urinary frequency. Patient denies this. White count shows a blood count of 14.3. Elect lites show a potassium of 3.2. She's been given potassium replacement here in emerged department. Carbamazepine level is on the high side of therapeutic. At this point there is no obvious findings to explain her mild confusion. Please note the son and daughter who are at the bedside were concerned that she may have been overmedicated. CBC had her medications changed including her carbamazepine increased as well as her topiramate. She'll be admitted under observation. The case was discussed with Dr. Clarence Bonner who will write admission orders. Diagnosis Primary Impression: altered sensorium, rule out TIA versus CVA Additional Impressions: mild hypokalemia History of trigeminal neuralgia Hyperlipidemia Hypertension Admitting Information Admitting Physician Requests: Observation Jorgito Upton MD Jun 27, 2017 21:46
[2017-06-27 22:12] LABS: AUTOMATED NEUTROPHIL # 12.9 TH/MM3 (1.8-7.7); BASOPHIL % 0.2 % (0.0-2.0); EOSINOPHIL % 0.1 % (0.0-4.0); HEMATOCRIT 38.1 % (35.0-46.0); HEMO FLAGS DIFF FINAL; LYMPH % 3.3 % (9.0-44.0); LYMPHOCYTE # 0.5 TH/MM3 (1.0-4.8); MEAN CELL VOLUME 94.7 FL (80.0-100.0); MEAN CORPUSCULAR HEMOGLOBIN 31.4 PG (27.0-34.0); MEAN CORPUSCULAR HGB CONC 33.1 % (32.0-36.0); MONO % 6.4 % (0.0-8.0); PLATELET COUNT 246 TH/MM3 (150-450); RED BLOOD COUNT 4.02 MIL/MM3 (4.00-5.30); RED CELL DISTRIBUTION WIDTH 13.7 % (11.6-17.2); WHITE BLOOD COUNT 14.3 TH/MM3 (4.0-11.0)
[2017-06-27 22:24] LABS: ALT (GPT) 21 U/L (10-53); ANION GAP 11 MEQ/L (5-15); AST (GOT) 20 U/L (15-37); BICARBONATE 23.6 MEQ/L (21.0-32.0); BLOOD UREA NITROGEN 13 MG/DL (7-18); CHLORIDE 103 MEQ/L (98-107); GLOMERULAR FILTRATION RATE 72 ML/MIN (>89); POTASSIUM 3.4 MEQ/L (3.5-5.1); SODIUM (NA) 138 MEQ/L (136-145)
[2017-06-27 22:27] LABS: BLOOD, URINE NEG (NEG); COMMENT (UR) CULT NOT INDICATED; CULTURE IF INDICATED CULT NOT INDICATED; GLUCOSE,URINE NEG (NEG); KETONE, URINE 10 mg/dL (NEG); MUCUS URINE FEW /lpf (OCC); NITRITE,URINE NEG (NEG); SQUAMOUS EPITHELIAL CELL URINE 1 /hpf (0-5); URINE COLOR YELLOW (YELLW/STRAW)
[2017-06-27 22:34] LABS: ALKALINE PHOSPHATASE 84 U/L (45-117); CREATINE KINASE 117 U/L (26-192); TOTAL BILIRUBIN ADULT 0.3 MG/DL (0.2-1.0)
--- NOTE | 2017-06-27 22:39 | RADRPT ---
EXAM DATE/TIME: 06/27/2017 21:25 [facility] COMPARISON: CHEST SINGLE AP, June 10, 2017, 22:13. INDICATIONS : Fever. MEDICAL HISTORY : Hypertension. SURGICAL HISTORY : Tonsillectomy. ENCOUNTER: Initial ACUITY: 1 day PAIN SCORE: 0/10 LOCATION: Bilateral chest FINDINGS: A single view of the chest demonstrates the lungs to be symmetrically aerated without evidence of mas s, infiltrate or effusion. The cardiomediastinal contours are unremarkable. Osseous structures are intact. CONCLUSION: Normal examination. Anish Shin MD on June 27, 2017 at 22:37 Board Certified Radiologist. This report was verified electronically.
[2017-06-27 22:46] LABS: CKMB 1.6 NG/ML (0.5-3.6)
--- NOTE | 2017-06-27 23:48 | RADRPT ---
EXAM DATE/TIME: 06/27/2017 23:34 [facility] COMPARISON: CT BRAIN W/O CONTRAST, June 10, 2017, 22:34. INDICATIONS : Altered mental status. RADIATION DOSE: 29.65 CTDIvol (mGy) MEDICAL HISTORY : Hypertension. Trigeminal neuralgia. SURGICAL HISTORY : None. ENCOUNTER: Initial ACUITY: 1 day PAIN SCALE: 0/10 LOCATION: cranial TECHNIQUE: Multiple contiguous axial images were obtained of the head. Using automated exposure control and adj ustment of the mA and/or kV according to patient size, radiation dose was kept as low as reasonably a chievable to obtain optimal diagnostic quality images. DICOM format image data is available electro nically for review and comparison. FINDINGS: CEREBRUM: The ventricles are normal for age. No evidence of midline shift, mass lesion, hemorrhage or acute in farction. No extra-axial fluid collections are seen. POSTERIOR FOSSA: The cerebellum and brainstem are intact. The 4th ventricle is midline. The cerebellopontine angle i s unremarkable. EXTRACRANIAL: The visualized portion of the orbits is intact. SKULL: The calvaria is intact. No evidence of skull fracture. CONCLUSION: Normal examination. Abrahan Lopez MD on June 27, 2017 at 23:46 Board Certified Radiologist. This report was verified electronically.
[2017-06-28] VITALS (9 sets, daily range): BP systolic 105–141; BP diastolic 56–70; PULSE 80–104; RESP 16–20; TEMP 98.5–99.7; O2SAT 93–94
[2017-06-28] MEDS ORDERED: POTASSIUM CHLORIDE 25 MEQ EFFERVESCENT TAB PO ONE (01:00)
--- NOTE | 2017-06-28 04:42 | HHI.HP ---
HPI Service [facility] Hospitalists Primary Care Physician Wilner De La O MD Admission Diagnosis altered sensorium, tia vs cva, hypokalemia, htn, hyperlipedemia, tri Chief Complaint: altered mental status Travel History International Travel<30 Days: No Contact w/Intl Traveler <30 Da: No Traveled to Known Affected Are: No History of Present Illness Diagnoses a 77-year-old female with a history of hypertension, hyperlipidemia, trigeminal neuralgia, recent TIA, presents today at the request of her family members for her not acting her normal self. According to EMS, neighbor saw her and thought she was acting slightly more bizarre than normal. They called her daughter & and the daughter eventually called 911 for evaluation. The patient denies any issues. She is able to answer questions and able to tell is what medication she is on. The patient does state that she has trigeminal neuralgia and has missed her evening medications. She is requesting that we give her those so that she does not have recurrent pain. Someone told EMS that she was having very frequency. The patient denies this at this time. The patient does have tachycardia with a heart rate in the 120s. Originally the fire medics took a temperature and found her temperature to be 101.4. [facility] states they retested at it and it was 98.6. Urine no other complaints time of my examination. At time of my exam there was no confusion answered all questions right away . over all has some mild confusion . There is question of recent increase in meds will observe over night . Patient was in hospital about 2 weeks ago and had full neuro work up and sent home with probableTIA. [facility] Review of Systems ROS Limitations: Altered Mental Status Past Family Social History Past Medical History hypertension,GERD ,TIA,trigeminal neurogia Past Surgical History tonsils Reported Medications Plavix (Clopidogrel Bisulfate) 75 Mg Tab 75 Mg PO DAILY MDD 75mg 30 Days Reported Topamax (Topiramate) 25 Mg Tab 25 Mg PO BID Carbamazepine 200 Mg Tab 400 Mg PO BID Omeprazole 20 Mg Tab 20 Mg PO DAILY Pravastatin 80 Mg Tab 80 Mg PO HS Benazepril (Benazepril HCl) 20 Mg Tab 20 Mg PO BID Allergies: Coded Allergies: No Known Allergies (Verified Adverse Reaction, Unknown, 06/27/17) Social History NS,ND Physical Exam Vital Signs Vital Signs Date Time Temp Pulse Resp B/P (MAP) Pulse Ox O2 Delivery O2 Flow Rate FiO2 06/28/17 04:06 98.7 100 18 121/56 (77) 93 06/28/17 02:53 102 20 141/70 (93) 94 06/28/17 02:17 104 20 139/66 (90) 94 Nasal Cannula 06/27/17 22:24 121 20 98 Nasal Cannula 06/27/17 21:32 99.3 121 20 171/81 (111) 93 Physical Exam GENERAL: This is a well-nourished, well-developed patient, in no apparent distress. SKIN: No rashes, ecchymoses or lesions. Cool and dry. HEAD: Atraumatic. Normocephalic. No temporal or scalp tenderness. EYES: Pupils equal round and reactive. Extraocular motions intact. No scleral icterus. No injection or drainage. ENT: Nose without bleeding, purulent drainage or septal hematoma. Throat without erythema, tonsillar hypertrophy or exudate. Uvula midline. Airway patent. NECK: Trachea midline. No JVD or lymphadenopathy. Supple, nontender, no meningeal signs. CARDIOVASCULAR: Regular rate and rhythm without murmurs, gallops, or rubs. RESPIRATORY: Clear to auscultation. Breath sounds equal bilaterally. No wheezes , rales, or rhonchi. GASTROINTESTINAL: Abdomen soft, non-tender, nondistended. No hepato-splenomegaly , or palpable masses. No guarding. MUSCULOSKELETAL: Extremities without clubbing, cyanosis, or edema. No joint tenderness, effusion, or edema noted. No calf tenderness. Negative Homans sign bilaterally. NEUROLOGICAL: Awake and alert. Cranial nerves II through XII intact. Motor and sensory grossly within normal limits. Five out of 5 muscle strength in all muscle groups. Normal speech. Laboratory Laboratory Tests Test 06/27/17 21:20 White Blood Count 14.3 Red Blood Count 4.02 Hemoglobin 12.6 Hematocrit 38.1 Mean Corpuscular Volume 94.7 Mean Corpuscular Hemoglobin 31.4 Mean Corpuscular Hemoglobin Concent 33.1 Red Cell Distribution Width 13.7 Platelet Count 246 Mean Platelet Volume 7.8 Neutrophils (%) (Auto) 90.0 Lymphocytes (%) (Auto) 3.3 Monocytes (%) (Auto) 6.4 Eosinophils (%) (Auto) 0.1 Basophils (%) (Auto) 0.2 Neutrophils # (Auto) 12.9 Lymphocytes # (Auto) 0.5 Monocytes # (Auto) 0.9 Eosinophils # (Auto) 0.0 Basophils # (Auto) 0.0 CBC Comment DIFF FINAL Differential Comment Urine Color YELLOW Urine Turbidity CLEAR Urine pH 8.0 Urine Specific [place] 1.013 Urine Protein TRACE Urine Glucose (UA) NEG Urine Ketones 10 Urine Occult Blood NEG Urine Nitrite NEG Urine Bilirubin NEG Urine Urobilinogen LESS THAN 2.0 Urine Leukocyte Esterase TRACE Urine RBC LESS THAN 1 Urine WBC 2 Urine Squamous Epithelial Cells 1 Urine Mucus FEW Microscopic Urinalysis Comment CULT NOT INDICATED Blood Urea Nitrogen 13 Creatinine 0.78 Random Glucose 104 Total Protein 7.1 Albumin 3.6 Calcium Level 8.3 Alkaline Phosphatase 84 Aspartate Amino Transf (AST/SGOT) 20 Alanine Aminotransferase (ALT/SGPT) 21 Total Bilirubin 0.3 Sodium Level 138 Potassium Level 3.4 Chloride Level 103 Carbon Dioxide Level 23.6 Anion Gap 11 Estimat Glomerular Filtration Rate 72 Total Creatine Kinase 117 Creatine Kinase MB 1.6 Troponin I 0.05 Thyroid Stimulating Hormone 3rd Gen 0.658 Carbamazepine (Tegretol) Level 11.4 Date/Time Source Procedure Growth Status 06/27/17 21:50 Blood Peripheral Aerobic Blood Culture Pending Received 06/27/17 21:50 Blood Peripheral Anaerobic Blood Culture Pending Received Result Diagram: 06/27/17211906/27/172119 Imaging Last [address] 06/27/172134 Signed Impressions: Service Date/Time: Tuesday, June 27, 2017 23:34 - CONCLUSION: Normal examination. Abrahan Lopez MD Chest X-Ray 06/27/172119 Signed Impressions: Service Date/Time: Tuesday, June 27, 2017 21:25 - CONCLUSION: Normal examination. Anish Shin MD Caprini VTE Risk Assessment Caprini VTE Risk Assessment: Mod/High Risk (score >= 2) Caprini Risk Assessment Model Point Value = 1 Point Value = 2 Point Value = 3 Point Value = 5 Age 41-60 Minor surgery BMI > 25 kg/m2 Swollen legs Varicose veins or History of unexplained or recurrent spontaneous Oral contraceptives or hormone replacement Sepsis (< 1 month) Serious lung disease, including pneumonia (< 1 month) Abnormal pulmonary function Acute myocardial infarction Congestive heart failure (< 1 month) History of inflammatory bowel disease Medical patient at bed rest Age 61-74 Arthroscopic surgery Major open surgery (> 45 min) Laparoscopic surgery (> 45 min) Malignancy Confined to bed (> 72 hours) Immobilizing plaster cast Central venous access Age >= 75 History of VTE Family history of VTE Factor V Leiden Prothrombin [id number] Lupus anticoagulant Anticardiolipin antibodies Elevated serum homocysteine Heparin-induced thrombocytopenia Other congenital or acquired thrombophilia Stroke (< 1 month) Elective arthroplasty Hip, pelvis, or leg fracture Acute spinal cord injury (< 1 month) Prophylaxis Regimen Total Risk Factor Score Risk Level Prophylaxis Regimen 0-1 Low Early ambulation 2 Moderate Order ONE of the following: *Sequential Compression Device (SCD) *Heparin 5000 units SQ BID 3-4 Higher Order ONE of the following medications: *Heparin 5000 units SQ TID *Enoxaparin/Lovenox 40 mg SQ daily (WT < 150 kg, CrCl > 30 mL/min) *Enoxaparin/Lovenox 30 mg SQ daily (WT < 150 kg, CrCl > 10-29 mL/min) *Enoxaparin/Lovenox 30 mg SQ BID (WT < 150 kg, CrCl > 30 mL/min) AND/OR *Sequential Compression Device (SCD) 5 or more Highest Order ONE of the following medications: *Heparin 5000 units SQ TID (Preferred with Epidurals) *Enoxaparin/Lovenox 40 mg SQ daily (WT < 150 kg, CrCl > 30 mL/min) *Enoxaparin/Lovenox 30 mg SQ daily (WT < 150 kg, CrCl > 10-29 mL/min) *Enoxaparin/Lovenox 30 mg SQ BID (WT < 150 kg, CrCl > 30 mL/min) AND *Sequential Compression Device (SCD) Assessment and Plan Problem List: (1) TIA (transient ischemic attack) ICD Codes: G45.9 - Transient cerebral ischemic attack, unspecified Plan: this sounds like another TIA already on plavix from last admit 2 weeks ago and had full neuro work up with negative MRI brain ,MRA brain MRA carotids , ?of med change in regards to her TIA medications level tegratol in normal range. (2) Trigeminal neuralgia ICD Codes: G50.0 - Trigeminal neuralgia Status: Chronic Plan: may be related to dose of medication which had been increased levels in normal range Assessment and Plan observe if MS remains stable discharge home with no changes ,patient just seen neurology in hospitaland office Code Status full Discussed Condition With patient and daughter Clarence Bonner MD Jun 28, 2017 04:42
[2017-06-28] MEDS ORDERED: SENNOSIDES 8.6 MG TAB PO PRN (04:45)
[2017-06-28] MEDS ORDERED: BISACODYL 10 MG SUPP RECTAL PRN (04:45)
[2017-06-28] MEDS ORDERED: NALOXONE HCL 0.4 MG/ML AMP IV PUSH PRN (04:45)
[2017-06-28] MEDS ORDERED: LACTULOSE SYRUP 20 GM/30 ML CUP PO PRN (04:45)
[2017-06-28] MEDS ORDERED: SODIUM CHLORIDE 0.9% FLUSH 10 ML FLUSH IV FLUSH PRN (04:45)
[2017-06-28] MEDS ORDERED: MAGNESIUM HYDROXIDE SUSP 30 ML CUP PO PRN (04:45)
[2017-06-28 08:04] LABS: AUTOMATED NEUTROPHIL # 10.6 TH/MM3 (1.8-7.7); BASOPHIL % 0.2 % (0.0-2.0); HEMATOCRIT 34.1 % (35.0-46.0); HEMO FLAGS DIFF FINAL; LYMPH % 6.6 % (9.0-44.0); LYMPHOCYTE # 0.8 TH/MM3 (1.0-4.8); MEAN CELL VOLUME 94.3 FL (80.0-100.0); MEAN CORPUSCULAR HEMOGLOBIN 32.2 PG (27.0-34.0); MEAN CORPUSCULAR HGB CONC 34.1 % (32.0-36.0); MONO % 7.8 % (0.0-8.0); NEUT % 85.4 % (16.0-70.0); PLATELET COUNT 198 TH/MM3 (150-450); RED BLOOD COUNT 3.61 MIL/MM3 (4.00-5.30); RED CELL DISTRIBUTION WIDTH 13.7 % (11.6-17.2); WHITE BLOOD COUNT 12.4 TH/MM3 (4.0-11.0)
[2017-06-28 08:25] LABS: BICARBONATE 24.2 MEQ/L (21.0-32.0); POTASSIUM 3.7 MEQ/L (3.5-5.1)
[2017-06-28] MEDS ORDERED: carBAMazepine 200 MG TAB PO SCH (09:00)
--- NOTE | 2017-06-28 09:10 | HHI.PR ---
Subjective Remarks Patient awake and alert laying in bed with son and daughter at bedside Patient report that she feels like she is back to her baseline Patient reports difficulty with word finding yesterday evening which has resolved Patient also reports that her Neurologist Dr. Hernandez06/24/17 Topamax was increased to 2 tablets daily and increased Carbamazepine 200 mg 1.5 tablets AM, 1 tablet afternoon and 2 tablets at night. Objective Vitals Vital Signs Date Time Temp Pulse Resp B/P (MAP) Pulse Ox O2 Delivery O2 Flow Rate FiO2 06/28/17 07:21 99.7 98 16 117/59 (78) 93 06/28/17 04:06 98.7 100 18 121/56 (77) 93 06/28/17 02:53 102 20 141/70 (93) 94 06/28/17 02:17 104 20 139/66 (90) 94 Nasal Cannula 06/27/17 22:24 121 20 98 Nasal Cannula 06/27/17 21:32 99.3 121 20 171/81 (111) 93 Result Diagram: 06/28/17 0703 06/28/17 0703 Other Results Laboratory Tests Test 06/27/17 21:20 06/28/17 07:03 White Blood Count 14.3 TH/MM3 12.4 TH/MM3 Red Blood Count 4.02 MIL/MM3 3.61 MIL/MM3 Hemoglobin 12.6 GM/DL 11.6 GM/DL Hematocrit 38.1 % 34.1 % Mean Corpuscular Volume 94.7 FL 94.3 FL Mean Corpuscular Hemoglobin 31.4 PG 32.2 PG Mean Corpuscular Hemoglobin Concent 33.1 % 34.1 % Red Cell Distribution Width 13.7 % 13.7 % Platelet Count 246 TH/MM3 198 TH/MM3 Mean Platelet Volume 7.8 FL 7.7 FL Neutrophils (%) (Auto) 90.0 % 85.4 % Lymphocytes (%) (Auto) 3.3 % 6.6 % Monocytes (%) (Auto) 6.4 % 7.8 % Eosinophils (%) (Auto) 0.1 % 0.0 % Basophils (%) (Auto) 0.2 % 0.2 % Neutrophils # (Auto) 12.9 TH/MM3 10.6 TH/MM3 Lymphocytes # (Auto) 0.5 TH/MM3 0.8 TH/MM3 Monocytes # (Auto) 0.9 TH/MM3 1.0 TH/MM3 Eosinophils # (Auto) 0.0 TH/MM3 0.0 TH/MM3 Basophils # (Auto) 0.0 TH/MM3 0.0 TH/MM3 CBC Comment DIFF FINAL DIFF FINAL Differential Comment Urine Color YELLOW Urine Turbidity CLEAR Urine pH 8.0 Urine Specific [place] 1.013 Urine Protein TRACE mg/dL Urine Glucose (UA) NEG mg/dL Urine Ketones 10 mg/dL Urine Occult Blood NEG Urine Nitrite NEG Urine Bilirubin NEG Urine Urobilinogen LESS THAN 2.0 MG/DL Urine Leukocyte Esterase TRACE Urine RBC LESS THAN 1 /hpf Urine WBC 2 /hpf Urine Squamous Epithelial Cells 1 /hpf Urine Mucus FEW /lpf Microscopic Urinalysis Comment CULT NOT INDICATED Blood Urea Nitrogen 13 MG/DL 9 MG/DL Creatinine 0.78 MG/DL 0.58 MG/DL Random Glucose 104 MG/DL 89 MG/DL Total Protein 7.1 GM/DL Albumin 3.6 GM/DL Calcium Level 8.3 MG/DL 8.0 MG/DL Alkaline Phosphatase 84 U/L Aspartate Amino Transf (AST/SGOT) 20 U/L Alanine Aminotransferase (ALT/SGPT) 21 U/L Total Bilirubin 0.3 MG/DL Sodium Level 138 MEQ/L 139 MEQ/L Potassium Level 3.4 MEQ/L 3.7 MEQ/L Chloride Level 103 MEQ/L 106 MEQ/L Carbon Dioxide Level 23.6 MEQ/L 24.2 MEQ/L Anion Gap 11 MEQ/L 9 MEQ/L Estimat Glomerular Filtration Rate 72 ML/MIN 101 ML/MIN Total Creatine Kinase 117 U/L Creatine Kinase MB 1.6 NG/ML Troponin I 0.05 NG/ML Thyroid Stimulating Hormone 3rd Gen 0.658 uIU/ML Carbamazepine (Tegretol) Level 11.4 MCG/ML Imaging Last [address] 06/27/172134 Signed Impressions: Service Date/Time: Tuesday, June 27, 2017 23:34 - CONCLUSION: Normal examination. Abrahan Lopez MD Chest X-Ray 06/27/172119 Signed Impressions: Service Date/Time: Tuesday, June 27, 2017 21:25 - CONCLUSION: Normal examination. Anish Shin MD Objective Remarks GENERAL: This is a well-nourished, well-developed patient, in no apparent distress. CARDIOVASCULAR: Regular rate and rhythm RESPIRATORY: Clear to auscultation. Breath sounds equal bilaterally. GASTROINTESTINAL: Abdomen soft, non-tender, nondistended. Normal active bowel sounds MUSCULOSKELETAL: Extremities without clubbing, cyanosis, or edema. NEURO: Alert & Oriented x4 to person, place, time, situation. Moves all ext x4 A/P Problem List: (1) TIA (transient ischemic attack) ICD Codes: G45.9 - Transient cerebral ischemic attack, unspecified Plan: TIA possible TIA already on Plavix from last admit 2 weeks ago and had full neuro work up with negative MRI brain ,MRA brain MRA carotids Patient reports difficulty with word finding yesterday evening which has resolved Patient also reports that her Neurologist Dr. Hernandez06/24/17 Topamax was increased to 2 tablets daily and increased Carbamazepine 200 mg 1.5 tablets AM, 1 tablet afternoon and 2 tablets at night Topamax 25 mg PO BID and Carbamazepine 400 mg PO BID Continue Plavix add aspirin daily 2 D echocardiogram and repeat MRI continue gum remover EEG Patient will need outpatient Holter monitor after DC Trigeminal neuralgia Patient reports difficulty with word finding yesterday evening which has resolved Patient also reports that her Neurologist Dr. Hernandez06/24/17 Topamax was increased to 2 tablets daily and increased Carbamazepine 200 mg 1.5 tablets AM, 1 tablet afternoon and 2 tablets at night Carbamazepine level 11.4 (2) Trigeminal neuralgia ICD Codes: G50.0 - Trigeminal neuralgia Status: Chronic Plan: see above Assessment and Plan Patient examined. Assessment and plan formulated with Edith Krueger PA-C. I agree with the above. presented with appearance of expressive aphasia. recent admit for slurred speech and possible tia. on asa and plavix on carbamazebime for trigeminal neuralgia . doubt sz or migraine. no cva on imaging and ?tia questioned. stress/depression could be playing a role with recent loss of . will place on tele and possible outpt holter to eval for arrhythmia. f/u pending tests. d/c home tomorrow planned. Edith Krueger Jun 28, 2017 09:10 Jose A Lopez MD Jun 28, 2017 16:04
[2017-06-28] MEDS: CLOPIDOGREL 75 MG TAB PO SCH (09:24)
[2017-06-28] MEDS: PANTOPRAZOLE SOD 20 MG DELAYED RELEASE TAB PO SCH (09:24)
[2017-06-28] MEDS: TOPIRAMATE 25 MG TAB PO SCH ×2 (09:25→20:51)
[2017-06-28] MEDS: LISINOPRIL 20 MG TAB PO SCH ×2 (09:25→20:52)
[2017-06-28] MEDS: DOCUSATE SODIUM 50 MG/SENNA 8.6 MG TAB PO SCH ×2 (09:26→20:52)
[2017-06-28] MEDS: SODIUM CHLORIDE 0.9% FLUSH 10 ML FLUSH IV FLUSH SCH ×2 (09:26→20:56)
--- NOTE | 2017-06-28 14:13 | EKG ---
Date Performed: 06/27/2017 Time Performed: 21:43:33 PTAGE: 77 years EKG: SINUS TACHYCARDIA POSSIBLE RIGHT VENTRICULAR CONDUCTION DELAY SEPTAL MYOCARDIAL INFARCTION ABNORMAL ECG PREVIOUS TRACING : 06/10/2017 22.12 COMPARED WITH PREVIOUS TRACING SINUS TACHYCARDIA IS NEW DOCTOR: Ramez Avila Interpretating Date/Time 06/28/2017 14:09:19
[2017-06-28] MEDS ORDERED: RESP: ALBUTEROL 2.5 MG/IPRATROPIUM 0.5 MG NEB (PRN) NEB (15:45)
[2017-06-28] MEDS ORDERED: RESP: ALBUTEROL 2.5 MG/IPRATROPIUM 0.5 MG NEB (SCH) NEB ONE (15:45)
[2017-06-28] MEDS ORDERED: PILL SPLITTER OTHER PRN (16:00)
[2017-06-28] MEDS: ASPIRIN 325 MG TAB PO SCH (16:05)
[2017-06-28] MEDS: LORATADINE 10 MG TAB PO SCH (16:06)
--- NOTE | 2017-06-28 16:26 | PD.CONS ---
History of Present Illness Service Neurology Consult Requested By medical Reason for Consult tia/sz Primary Care Physician Wilner De La O MD History of Present Illness 77-year-old female with a history of hypertension, hyperlipidemia, trigeminal neuralgia, recent TIA, presents today at the request of her family members for her not acting her normal self. According to EMS, neighbor saw her and thought she was acting slightly more bizarre than normal. she is followed by neurologist at [facility]. 05/2017 mri brain/mra brain carotids nml. eeg nml. Review of Systems ROS Limitations: as above and admit hp Past Family Social History Past Medical History hypertension,GERD ,TIA,trigeminal neurogia Past Surgical History tonsils Reported Medications Plavix (Clopidogrel Bisulfate) 75 Mg Tab 75 Mg PO DAILY MDD 75mg 30 Days Reported Topamax (Topiramate) 25 Mg Tab 25 Mg PO BID Carbamazepine 200 Mg Tab 400 Mg PO BID Omeprazole 20 Mg Tab 20 Mg PO DAILY Pravastatin 80 Mg Tab 80 Mg PO HS Benazepril (Benazepril HCl) 20 Mg Tab 20 Mg PO BID Allergies: Coded Allergies: No Known Allergies (Verified Adverse Reaction, Unknown, 06/27/17) Social History NS,ND Review of Systems All other ROS: ROS reviewed as documented in chart Past Family Social History Allergies: Coded Allergies: No Known Allergies (Verified Allergy, Unknown, 06/28/17) Active Ordered Medications Current Medications Medications (Trade) Dose Ordered Sig/Tolu Route Start Time Stop Time Status Last Admin (Prinivil) 20 mg BID PO 06/28/17 09:00 06/28/17 09:25 (Plavix) 75 mg DAILY PO 06/28/17 09:00 06/28/17 09:24 (Pravachol) 80 mg HS PO 06/28/17 21:00 (Topamax) 25 mg BID PO 06/28/17 09:00 06/28/17 09:25 (Protonix) 20 mg DAILY PO 06/28/17 09:00 06/28/17 09:24 (NS Flush) 2 ml UNSCH PRN IV FLUSH 06/28/17 04:45 (NS Flush) 2 ml BID IV FLUSH 06/28/17 09:00 06/28/17 09:26 (Narcan Inj) 0.4 mg UNSCH PRN IV PUSH 06/28/17 04:45 (Monica-Colace) 1 tab BID PO 06/28/17 09:00 (Milk Of Magnesia Liq) 30 ml Q12H PRN PO 06/28/17 04:45 (Senokot) 17.2 mg Q12H PRN PO 06/28/17 04:45 (Dulcolax Supp) 10 mg DAILY PRN RECTAL 06/28/17 04:45 (Lactulose Liq) 30 ml DAILY PRN PO 06/28/17 04:45 (Aspirin) 325 mg DAILY PO 06/28/17 15:15 06/28/17 16:05 (TEGretol) 300 mg BID PO 06/28/17 21:00 (TEGretol) 200 mg DAILY@1400 PO 06/29/17 14:00 (Duoneb Neb) 1 ampule Q6HR WHILE AWAKE NEB NEB 06/28/17 20:00 (Duoneb Neb) 1 ampule Q4HR NEB PRN NEB 06/28/17 15:45 (Claritin) 10 mg DAILY PO 06/28/17 16:00 06/28/17 16:06 (Mucinex Er) 600 mg BID PO 06/28/17 21:00 (Pill Splitter) 1 ea UNSCH PRN OTHER 06/28/17 16:00 Exam I&O / VS Vital Signs Date Time Temp Pulse Resp B/P (MAP) Pulse Ox O2 Delivery O2 Flow Rate FiO2 06/28/17 12:10 99.3 89 16 105/60 (75) 93 06/28/17 07:21 99.7 98 16 117/59 (78) 93 06/28/17 04:06 98.7 100 18 121/56 (77) 93 06/28/17 02:53 102 20 141/70 (93) 94 06/28/17 02:17 104 20 139/66 (90) 94 Nasal Cannula 06/27/17 22:24 121 20 98 Nasal Cannula 06/27/17 21:32 99.3 121 20 171/81 (111) 93 General: Alert and Oriented, No acute distress Eye: EOMI Respiratory: Non-labored respirations Neurologic: Alert, Oriented, Normal sensory, Normal motor, No focal defects, CN II-XII intact Psychiatric: Cooperative, Appropriate mood & affect Review/Management Diagnosis/Plan: (1) TIA (transient ischemic attack) ICD Codes: G45.9 - Transient cerebral ischemic attack, unspecified Status: Acute Plan: recurrent confusion with negative previous tia w/u recs f/u eeg labs may need outpatient cognitive testing no driving until seen by her neurologist (2) Trigeminal neuralgia ICD Codes: G50.0 - Trigeminal neuralgia Status: Chronic (3) Hypertension ICD Codes: I10 - Essential (primary) hypertension Status: Chronic Problem Qualifiers (1) Hypertension: Qualified Codes: I10 - Essential (primary) hypertension Willis Diggs MD Jun 28, 2017 16:26
--- NOTE | 2017-06-28 17:28 | RADRPT ---
EXAM DATE/TIME: 06/28/2017 16:49 [facility] COMPARISON: MRA CAROTIDS W CONTRAST, June 11, 2017, 1:25. INDICATIONS : CVA. MEDICAL HISTORY : Gastroesophageal reflux disease. Hypertension. Hypercholesterolemia. SURGICAL HISTORY : Tonsillectomy. ENCOUNTER: Initial ACUITY: 1 day PAIN SCORE: 0/10 LOCATION: head Please note a normal MRA of the brain does not entirely exclude the possibility of a small aneurysm, nor the possibility of distal intracranial vessel disease. TECHNIQUE: 3D time of flight MRA was performed. Source images, multiplanar STS MIP, and 3D volume MIP reconstru ctions were reviewed. FINDINGS: The examination demonstrates a 3 mm outpouching of the supraclinoid carotid on the right. It is possi ble this is a dilated infundibulum of the origin of the right ophthalmic artery however, a small opht halmic aneurysm cannot be excluded. CT angiography would be warranted for more definitive assessment. The appearance of the anterior and middle cerebral circulation is within normal limits. The posterior cerebral circulation is widely patent. CONCLUSION: 1. 3 mm outpouching of the supraclinoid carotid on the right. Yovany Finch MD on June 28, 2017 at 17:24 Board Certified Radiologist. This report was verified electronically.
--- NOTE | 2017-06-28 17:29 | RADRPT ---
EXAM DATE/TIME: 06/28/2017 16:49 [facility] COMPARISON: MRI BRAIN W/O CONTRAST, June 11, 2017, 1:25. INDICATIONS : TIA. MEDICAL HISTORY : Gastroesophageal reflux disease. Hypertension. Hypercholesterolemia. SURGICAL HISTORY : Tonsillectomy. ENCOUNTER: Initial ACUITY: 1 day PAIN SCORE: 0/10 LOCATION: Head TECHNIQUE: Multiplanar, multisequence MRI of the brain was performed without contrast. FINDINGS: CEREBRUM: The ventricles are normal. No evidence of midline shift, mass lesion, hemorrhage or acute infarction . No extraaxial fluid collections are seen. The pituitary gland and suprasellar cistern are normal in configuration. WHITE MATTER: There is stable mild periventricular and subcortical white matter signal change. POSTERIOR FOSSA: The cerebellum and brainstem demonstrate no acute finding. The 4th ventricle is midline. The cerebel lopontine angle is unremarkable. The cerebellar tonsils are normal in position. DIFFUSION IMAGING: No focal areas of restricted diffusion are seen. No evidence of acute infarction. EXTRACRANIAL: There is air-fluid level in the left maxillary sinus. CONCLUSION: 1. No acute intracranial abnormality is identified. There are no findings to indicate recent ischemia . Stable chronic white matter changes are present. 2. Air-fluid level in left maxillary antrum. Suggest correlating for acute sinus disease. Anish Tadeo MD on June 28, 2017 at 17:24 Board Certified Radiologist. This report was verified electronically.
--- NOTE | 2017-06-28 19:16 | RADRPT ---
EXAM DATE/TIME: 06/28/2017 17:45 [facility] COMPARISON: No previous studies available for comparison. INDICATIONS : Cerebrovascular accident. MEDICAL HISTORY : Hypertension. Hypercholesterolemia. Gastroesophageal reflux disease. Hearing aids. Anticoagulant ther apy. SURGICAL HISTORY : Tonsillectomy. ENCOUNTER: Initial ACUITY: 1 day PAIN SCORE: 0/10 LOCATION: Bilateral neck PEAK SYSTOLIC VELOCITIES (cm/sec): ICA/CCA RATIO: Right: 1.6 Left: 1.5 ICA: Right: 95.3 Left: 91.9 CCA: Right: 60.0 Left: 61.6 ECA: Right: 58.1 Left: 86.2 VERTEBRAL: Right: 48.1 antegrade Left: 41.7 antegrade Elevated flow velocities and ICA/CCA ratios have been found to correlate with increased degrees of vessel stenosis, calculated as percentage of diameter relative to a normal segment of distal ICA/CCA FINDINGS: RIGHT CAROTID: Minimal plaque is seen at the carotid bulb regions. No significant stenosis is visualized. The wavef orms are within normal limits. LEFT CAROTID: Minimal plaque is seen at the carotid bulb regions. No significant stenosis is visualized. The wavef orms are within normal limits. VERTEBRAL ARTERIES: Antegrade flow is seen in both vertebral arteries. MISCELLANEOUS: None. CONCLUSION: Minimal plaque without significant stenosis. Anish Shin MD on June 28, 2017 at 19:13 Board Certified Radiologist. This report was verified electronically.
[2017-06-28] MEDS: RESP: ALBUTEROL 2.5 MG/IPRATROPIUM 0.5 MG NEB (SCH) NEB ×2 (20:00→22:49)
[2017-06-28] MEDS: guaiFENesin E.R. 600 MG TAB PO SCH (20:50)
[2017-06-28] MEDS: PRAVASTATIN SOD 80 MG TAB PO SCH (20:50)
[2017-06-28] MEDS: carBAMazepine 200 MG TAB PO SCH (22:14)
[2017-06-29] VITALS (12 sets, daily range): BP systolic 116–135; BP diastolic 58–89; PULSE 82–105; RESP 16–20; TEMP 96.6–99.2; O2SAT 92–96
[2017-06-29] MEDS: RESP: ALBUTEROL 2.5 MG/IPRATROPIUM 0.5 MG NEB (SCH) NEB ×3 (07:52→20:25)
--- NOTE | 2017-06-29 08:35 | HHI.PR ---
Subjective Remarks Pt feels that she is at her baseline mental status and family at bedside agree. Her son is concerned about possible dementia She had noted on telemetry some episodes of tachycardia into the 120's around 5AM this morning Objective Vitals Vital Signs Date Time Temp Pulse Resp B/P (MAP) Pulse Ox O2 Delivery O2 Flow Rate FiO2 06/29/17 08:15 98.2 105 20 116/89 (98) 92 06/29/17 07:52 95 21 06/29/17 04:31 97.2 86 16 127/60 (82) 95 06/29/17 03:44 82 06/29/17 00:09 96.6 86 18 119/58 (78) 93 06/29/17 00:05 93 06/28/17 22:51 93 21 06/28/17 20:23 80 06/28/17 20:09 98.6 83 18 105/56 (72) 93 06/28/17 17:41 98.5 102 16 122/65 (84) 94 06/28/17 12:10 99.3 89 16 105/60 (75) 93 Result Diagram: 06/28/17 0703 06/28/17 0703 Other Results Laboratory Tests Test 06/27/17 21:20 06/28/17 07:03 06/28/17 21:15 06/28/17 21:18 White Blood Count 14.3 TH/MM3 12.4 TH/MM3 Red Blood Count 4.02 MIL/MM3 3.61 MIL/MM3 Hemoglobin 12.6 GM/DL 11.6 GM/DL Hematocrit 38.1 % 34.1 % Mean Corpuscular Volume 94.7 FL 94.3 FL Mean Corpuscular Hemoglobin 31.4 PG 32.2 PG Mean Corpuscular Hemoglobin Concent 33.1 % 34.1 % Red Cell Distribution Width 13.7 % 13.7 % Platelet Count 246 TH/MM3 198 TH/MM3 Mean Platelet Volume 7.8 FL 7.7 FL Neutrophils (%) (Auto) 90.0 % 85.4 % Lymphocytes (%) (Auto) 3.3 % 6.6 % Monocytes (%) (Auto) 6.4 % 7.8 % Eosinophils (%) (Auto) 0.1 % 0.0 % Basophils (%) (Auto) 0.2 % 0.2 % Neutrophils # (Auto) 12.9 TH/MM3 10.6 TH/MM3 Lymphocytes # (Auto) 0.5 TH/MM3 0.8 TH/MM3 Monocytes # (Auto) 0.9 TH/MM3 1.0 TH/MM3 Eosinophils # (Auto) 0.0 TH/MM3 0.0 TH/MM3 Basophils # (Auto) 0.0 TH/MM3 0.0 TH/MM3 CBC Comment DIFF FINAL DIFF FINAL Differential Comment Urine Color YELLOW Urine Turbidity CLEAR Urine pH 8.0 Urine Specific [place] 1.013 Urine Protein TRACE mg/dL Urine Glucose (UA) NEG mg/dL Urine Ketones 10 mg/dL Urine Occult Blood NEG Urine Nitrite NEG Urine Bilirubin NEG Urine Urobilinogen LESS THAN 2.0 MG/DL Urine Leukocyte Esterase TRACE Urine RBC LESS THAN 1 /hpf Urine WBC 2 /hpf Urine Squamous Epithelial Cells 1 /hpf Urine Mucus FEW /lpf Microscopic Urinalysis Comment CULT NOT INDICATED Blood Urea Nitrogen 13 MG/DL 9 MG/DL Creatinine 0.78 MG/DL 0.58 MG/DL Random Glucose 104 MG/DL 89 MG/DL Total Protein 7.1 GM/DL Albumin 3.6 GM/DL Calcium Level 8.3 MG/DL 8.0 MG/DL Alkaline Phosphatase 84 U/L Aspartate Amino Transf (AST/SGOT) 20 U/L Alanine Aminotransferase (ALT/SGPT) 21 U/L Total Bilirubin 0.3 MG/DL Sodium Level 138 MEQ/L 139 MEQ/L Potassium Level 3.4 MEQ/L 3.7 MEQ/L Chloride Level 103 MEQ/L 106 MEQ/L Carbon Dioxide Level 23.6 MEQ/L 24.2 MEQ/L Anion Gap 11 MEQ/L 9 MEQ/L Estimat Glomerular Filtration Rate 72 ML/MIN 101 ML/MIN Total Creatine Kinase 117 U/L Creatine Kinase MB 1.6 NG/ML Troponin I 0.05 NG/ML Thyroid Stimulating Hormone 3rd Gen 0.658 uIU/ML Carbamazepine (Tegretol) Level 11.4 MCG/ML Ammonia 22 MCMOL/L Erythrocyte Sedimentation Rate 51 mm/hr C-Reactive Protein 26.50 MG/DL Imaging Last Impressions Head Magnetic Resonance Angiography 06/28/17 0000 Signed Impressions: Service Date/Time: Wednesday, June 28, 2017 16:49 - CONCLUSION: 1. 3 mm outpouching of the supraclinoid carotid on the right. Yovany Finch MD Carotid Artery Ultrasound 06/28/17 0000 Signed Impressions: Service Date/Time: Wednesday, June 28, 2017 17:45 - CONCLUSION: Minimal plaque without significant stenosis. Anish Shin MD Brain MRI 06/28/17 0000 Signed Impressions: Service Date/Time: Wednesday, June 28, 2017 16:49 - CONCLUSION: 1. No acute intracranial abnormality is identified. There are no findings to indicate recent ischemia. Stable chronic white matter changes are present. 2. Air-fluid level in left maxillary antrum. Suggest correlating for acute sinus disease. Anish Tadeo MD Head CT 06/27/172134 Signed Impressions: Service Date/Time: Tuesday, June 27, 2017 23:34 - CONCLUSION: Normal examination. Abrahan Lopez MD Chest X-Ray 06/27/172119 Signed Impressions: Service Date/Time: Tuesday, June 27, 2017 21:25 - CONCLUSION: Normal examination. Anish Shin MD Objective Remarks General: NAD, AAOx3 Chest: Coarse breath sounds, worse on the right Cardiac: Regular Abd: +BS, soft ND/NT Ext: No edema A/P Problem List: (1) TIA (transient ischemic attack) ICD Codes: G45.9 - Transient cerebral ischemic attack, unspecified Status: Acute Plan: TIA - Possible TIA already on Plavix from last admit 2 weeks ago and had full neuro work up with negative MRI brain ,MRA brain MRA carotids - Patient reports difficulty with word finding the evening prior to admission which has resolved - Patient also reports that her Neurologist Dr. Hernandez increased her Topamax on 06/24/17 to 2 tablets daily and increased Carbamazepine 200 mg 1.5 tablets AM, 1 tablet afternoon and 1.5 tablets at night - It is doubtful that her symptoms are related to seizure or migraine HAs. No evidence of CVA on imaging and ?tia questioned. Stress/depression could be playing a role with recent loss of . - Continue Plavix, ASA added daily - MRI Brain (06/28/17) --> No acute intracranial abnormality is identified. There are no findings to indicate recent ischemia. Stable chronic white matter changes are present. Air-fluid level in left maxillary antrum. - MRA Head (06/28/17) --> 3 mm outpouching of the supraclinoid carotid on the right. - Carotid US (06/28/17) --> Minimal plaque without significant stenosis. - 2D echocardiogram pending - Continue court monitor - EEG pending - Telemetry this morning with runs of Atrial tachycardia vs. A. fib. With the pts possible TIA symptoms and questionable A. fib on telemetry we will stop the ASA and Plavix and start Eliquis 5mg po BID. - Holter monitor to be placed - Attending physician spoke with the pts PCP, Dr. De La O, who has requested an US of the aorta be preformed to r/o aortic aneurysm Trigeminal neuralgia - Patient Neurologist, Dr. Hernandez, increased Topamax to 2 tablets daily and increased Carbamazepine 200 mg 1.5 tablets AM, 1 tablet afternoon and 1.5 tablets at night - Carbamazepine level 11.4 - Pt currently on Topamax 25 mg PO BID and Carbamazepine 400 mg PO BID Cough/Bronchitis - Start Levaquin 500mg po daily - Duonebs Q6HWA - Mucinex (2) Trigeminal neuralgia ICD Codes: G50.0 - Trigeminal neuralgia Status: Chronic Plan: see above Problem Qualifiers (1) TIA (transient ischemic attack): Qualified Codes: G45.9 - Transient cerebral ischemic attack, unspecified Jinny Azevedo Jun 29, 2017 08:35
[2017-06-29] MEDS: carBAMazepine 200 MG TAB PO SCH ×3 (08:55→20:43)
[2017-06-29] MEDS: guaiFENesin E.R. 600 MG TAB PO SCH ×2 (08:55→20:44)
[2017-06-29] MEDS: CLOPIDOGREL 75 MG TAB PO SCH (08:55)
[2017-06-29] MEDS: LORATADINE 10 MG TAB PO SCH (08:55)
--- NOTE | 2017-06-29 08:55 | HHI.PR ---
Review/Management Diagnosis/Plan: (1) TIA (transient ischemic attack) ICD Codes: G45.9 - Transient cerebral ischemic attack, unspecified Status: Acute Plan: recurrent confusion with negative previous tia w/u elevated esr/crp; has had low grade temps recs f/u eeg-pending follow temps elevated esr/crp, low grade temps- ? etiology. can be seen with [facility] but no temp tenderness or other constitutional symptoms medical for further input on esr/crp d/w pt/children at bedside no driving until seen by her neurologist (2) Trigeminal neuralgia ICD Codes: G50.0 - Trigeminal neuralgia Status: Chronic (3) Hypertension ICD Codes: I10 - Essential (primary) hypertension Status: Chronic Subjective Subjective Comments No acute events reported mild frontal headache. feels like she may have some upper congestion no congregational pain. denies any fever. no jaw claudication, night sweats. no joint pain or weakness. No chest pain No dyspnea Active Medications Current Medications Medications (Trade) Dose Ordered Sig/Tolu Route Start Time Stop Time Status Last Admin (Prinivil) 20 mg BID PO 06/28/17 09:00 06/28/17 20:52 (Plavix) 75 mg DAILY PO 06/28/17 09:00 06/28/17 09:24 (Pravachol) 80 mg HS PO 06/28/17 21:00 06/28/17 20:50 (Topamax) 25 mg BID PO 06/28/17 09:00 06/28/17 20:51 (Protonix) 20 mg DAILY PO 06/28/17 09:00 06/28/17 09:24 (NS Flush) 2 ml UNSCH PRN IV FLUSH 06/28/17 04:45 (NS Flush) 2 ml BID IV FLUSH 06/28/17 09:00 06/28/17 20:56 (Narcan Inj) 0.4 mg UNSCH PRN IV PUSH 06/28/17 04:45 (Monica-Colace) 1 tab BID PO 06/28/17 09:00 (Milk Of Magnesia Liq) 30 ml Q12H PRN PO 06/28/17 04:45 (Senokot) 17.2 mg Q12H PRN PO 06/28/17 04:45 (Dulcolax Supp) 10 mg DAILY PRN RECTAL 06/28/17 04:45 (Lactulose Liq) 30 ml DAILY PRN PO 06/28/17 04:45 (Aspirin) 325 mg DAILY PO 06/28/17 15:15 06/28/17 16:05 (TEGretol) 300 mg BID PO 06/28/17 21:00 06/28/17 22:14 (TEGretol) 200 mg DAILY@1400 PO 06/29/17 14:00 (Duoneb Neb) 1 ampule Q6HR WHILE AWAKE NEB NEB 06/28/17 20:00 06/29/17 07:52 (Duoneb Neb) 1 ampule Q4HR NEB PRN NEB 06/28/17 15:45 (Claritin) 10 mg DAILY PO 06/28/17 16:00 06/28/17 16:06 (Mucinex Er) 600 mg BID PO 06/28/17 21:00 06/28/17 20:50 (Pill Splitter) 1 ea UNSCH PRN OTHER 06/28/17 16:00 Allergies Allergies Coded Allergies No Known Allergies (Verified Allergy, Unknown, 06/28/17) Review of Systems All other ROS: ROS reviewed as documented in chart Exam I&O / VS Vital Signs Date Time Temp Pulse Resp B/P (MAP) Pulse Ox O2 Delivery O2 Flow Rate FiO2 06/29/17 08:15 98.2 105 20 116/89 (98) 92 06/29/17 07:52 95 21 06/29/17 04:31 97.2 86 16 127/60 (82) 95 06/29/17 03:44 82 06/29/17 00:09 96.6 86 18 119/58 (78) 93 06/29/17 00:05 93 06/28/17 22:51 93 21 06/28/17 20:23 80 06/28/17 20:09 98.6 83 18 105/56 (72) 93 06/28/17 17:41 98.5 102 16 122/65 (84) 94 06/28/17 12:10 99.3 89 16 105/60 (75) 93 General: Alert and Oriented, No acute distress Eye: EOMI Respiratory: Non-labored respirations Neurologic: Alert, Oriented, Normal sensory, Normal motor, No focal defects, CN II-XII intact Psychiatric: Cooperative, Appropriate mood & affect Exam Comments no congregational tenderness, ox 3, no aphasia Objective Micro and Labs Laboratory Tests Test 06/28/17 21:15 06/28/17 21:18 Ammonia 22 Erythrocyte Sedimentation Rate 51 C-Reactive Protein 26.50 Date/Time Source Procedure Growth Status 06/27/17 21:50 Blood Peripheral Aerobic Blood Culture - Preliminary NO GROWTH IN 1 DAY Resulted 06/27/17 21:50 Blood Peripheral Anaerobic Blood Culture - Preliminary NO GROWTH IN 1 DAY Resulted Problem Qualifiers (1) Hypertension: Qualified Codes: I10 - Essential (primary) hypertension Willis Diggs MD Jun 29, 2017 08:55
[2017-06-29] MEDS: DOCUSATE SODIUM 50 MG/SENNA 8.6 MG TAB PO SCH ×3 (08:56→20:45)
[2017-06-29] MEDS: ASPIRIN 325 MG TAB PO SCH (08:56)
[2017-06-29] MEDS: LISINOPRIL 20 MG TAB PO SCH ×2 (08:56→20:44)
[2017-06-29] MEDS: PANTOPRAZOLE SOD 20 MG DELAYED RELEASE TAB PO SCH (08:56)
[2017-06-29] MEDS: TOPIRAMATE 25 MG TAB PO SCH ×2 (08:56→20:44)
[2017-06-29] MEDS: SODIUM CHLORIDE 0.9% FLUSH 10 ML FLUSH IV FLUSH SCH ×2 (08:56→20:42)
[2017-06-29] MEDS ORDERED: ACETAMINOPHEN 325 MG TAB PO PRN (09:15)
[2017-06-29 16:31] LABS: ANA SCREEN NEG (NEG)
--- NOTE | 2017-06-29 16:44 | ECHRPT ---
Indication: CVA/TIA CONCLUSIONS Normal left ventricular size. Wall thickness is normal. The left ventricular systolic function is low normal with an estimated ejection fraction in the rang e of 50- 55%. Mild aortic dilatation at the level of the sinuses of Valsalva. Mild mitral annular calcification is present. There is mild tricuspid valve regurgitation. There is estimated mild pulmonary hypertension present (40 mmHg). BP: / HR: Rhythm: MEASUREMENTS (Male / Female) Normal Values Technical Quality:Good 2D ECHO LV Diastolic Diameter PLAX 4.1 cm 4.2 - 5.9 / 3.9 - 5.3 cm LV Systolic Diameter PLAX 3.1 cm IVS Diastolic Thickness 0.7 cm 0.6 - 1.0 / 0.6 - 0.9 cm LVPW Diastolic Thickness 0.5 cm 0.6 - 1.0 / 0.6 - 0.9 cm LV Relative Wall Thickness 0.3 RV Internal Dim ED PLAX 1.9 cm LA Systolic Diameter LX 3.3 cm 3.0 - 4.0 / 2.7 - 3.8 cm DOPPLER Mitral E Point Velocity 84.9 cm/s Mitral A Point Velocity 93.8 cm/s Mitral E to A Ratio 0.9 TR Peak Velocity 293.0 cm/s TR Peak Gradient 34.3 mmHg Right Atrial Pressure 5.0 mmHg Pulmonary Artery Systolic Pressu 39.3 mmHg Right Ventricular Systolic Press 39.3 mmHg FINDINGS LEFT VENTRICLE Normal left ventricular size. Wall thickness is normal. The left ventricular systolic function is low normal with an estimated ejection fraction in the rang e of 50- 55%. RIGHT VENTRICLE Normal right ventricular size and systolic function. LEFT ATRIUM The left atrial size is normal. RIGHT ATRIUM The right atrial size is normal. ATRIAL SEPTUM Normal atrial septal thickness without atrial level shunting by limited color doppler interrogation. AORTA Mild aortic dilatation at the level of the sinuses of Valsalva. MITRAL VALVE Mild mitral annular calcification is present. No mitral valve stenosis or regurgitation. AORTIC VALVE Trileaflet aortic valve. No aortic valve stenosis or regurgitation. TRICUSPID VALVE There is mild tricuspid valve regurgitation. There is estimated mild pulmonary hypertension present (40 mmHg). PULMONARY VALVE No pulmonary valve regurgitation or stenosis. VESSELS The inferior vena cava is normal in size. PERICARDIUM No pericardial effusion. Jose Kitchen MD (Electronically Signed) Final Date:29 June 2017 16:43
[2017-06-29] MEDS ORDERED: LEVOFLOXACIN 500 MG TAB PO SCH (17:00)
--- NOTE | 2017-06-29 17:18 | RADRPT ---
EXAM DATE/TIME: 06/29/2017 16:44 [facility] COMPARISON: No previous studies available for comparison. INDICATIONS : Aortic aneurysm. MEDICAL HISTORY : Hypercholesterolemia. Arthritis. Trigemina neuralgia. HTN. GERD. Anticoagulant therapy, Aspirin 81m g. SURGICAL HISTORY : Tonsillectomy. ENCOUNTER: Initial ACUITY: 1 day PAIN SCORE: 2/10 LOCATION: Abdomen. MEASUREMENTS: (AP x TRANSVERSE) PROXIMAL: 2.9 x 2.8 cm MID: 1.7 x 1.8 cm DISTAL: 2.8 x 2.2 cm RIGHT ILIAC: 0.9 x 1.0 cm LEFT ILIAC: 0.6 x 1.6 cm FINDINGS: AORTA: No significant atherosclerotic disease. Doppler evaluation within normal limits. IVC: Within normal limits. CONCLUSION: Negative for aneurysmal dilatation. Jez Finch MD FACR on June 29, 2017 at 17:16 Board Certified Radiologist. This report was verified electronically.
--- NOTE | 2017-06-29 18:53 | MG ---
cc: GUSTAVO PRICE Lab No: Date: 06/29/2017 Age: Sex: F Race: TEST NUMBER [id number] INDICATION A 77-year-old woman. Hyperventilation not performed. White matter changes. Trigeminal neuralgia. MEDICATIONS 1. Tegretol. 2. Topamax. DESCRIPTION A 7-8 Hz diffuse rhythm is seen. Some mild diffuse theta slowing is noted. Some prominent 8 Hz and bitemporal theta waves are seen but do not appear particularly epileptogenic. The patient then falls asleep and start snoring, reaches stage II sleep with some K complexes and sleep spindles, vertex sharp waves. Photic stimulation was performed without significant posterior driving. IMPRESSION A lot of normal sleep activity stage II. No focal abnormalities were noted. No seizure activity was seen. Some minimal diffuse theta slowing seen. Clinical correlation is needed. MD CHAPIN Harkins/ALFONSO /6:18 PM /6:40 PM
[2017-06-29] MEDS: APIXABAN 5 MG TABLET PO SCH (20:42)
[2017-06-29] MEDS: PRAVASTATIN SOD 80 MG TAB PO SCH (20:44)
[2017-06-30] VITALS (7 sets, daily range): BP systolic 126–137; BP diastolic 67–76; PULSE 86–101; RESP 14–20; TEMP 98.4–101.5; O2SAT 91–95
[2017-06-30] MEDS: RESP: ALBUTEROL 2.5 MG/IPRATROPIUM 0.5 MG NEB (SCH) NEB ×2 (08:00→14:10)
--- NOTE | 2017-06-30 08:38 | HHI.PR ---
Subjective Remarks Pt overall feeling better Her cough is improving and she is bringing some mucous up Denies any palpitations, chest pain, dizziness or weakness She did have some abnormalities noted on the telemetry again yesterday evening with possible A. fib vs. atrial tachycardia Pt currently in NSR Objective Vitals Vital Signs Date Time Temp Pulse Resp B/P (MAP) Pulse Ox O2 Delivery O2 Flow Rate FiO2 06/30/17 07:34 98.4 93 18 128/76 (93) 91 06/30/17 04:10 90 06/30/17 03:40 99.6 94 14 131/73 (92) 93 06/30/17 00:20 101.5 101 16 137/67 (90) 91 06/29/17 23:55 104 06/29/17 20:25 92 06/29/17 19:27 98.1 101 16 131/73 (92) 95 06/29/17 17:43 18 06/29/17 16:01 99.2 90 18 135/66 (89) 96 06/29/17 15:02 104 06/29/17 12:25 98.3 84 20 120/66 (84) 94 Result Diagram: 06/28/17 0703 06/28/17 0703 Other Results Laboratory Tests Test 06/28/17 21:15 06/28/17 21:18 Ammonia 22 MCMOL/L Erythrocyte Sedimentation Rate 51 mm/hr C-Reactive Protein 26.50 MG/DL Anti-Nuclear Antibody Screen NEG Rapid Plasma Reagin NON-REACTIVE Imaging Last Impressions Head Magnetic Resonance Angiography 06/28/17 0000 Signed Impressions: Service Date/Time: Wednesday, June 28, 2017 16:49 - CONCLUSION: 1. 3 mm outpouching of the supraclinoid carotid on the right. Yovany Finch MD Carotid Artery Ultrasound 06/28/17 0000 Signed Impressions: Service Date/Time: Wednesday, June 28, 2017 17:45 - CONCLUSION: Minimal plaque without significant stenosis. Anish Shin MD Brain MRI 06/28/17 0000 Signed Impressions: Service Date/Time: Wednesday, June 28, 2017 16:49 - CONCLUSION: 1. No acute intracranial abnormality is identified. There are no findings to indicate recent ischemia. Stable chronic white matter changes are present. 2. Air-fluid level in left maxillary antrum. Suggest correlating for acute sinus disease. Anish Tadeo MD Head CT [id number] Signed Impressions: Service Date/Time: Tuesday, June 27, 2017 23:34 - CONCLUSION: Normal examination. Abrahan Lopez MD Chest X-Ray [id number]/[id number] Signed Impressions: Service Date/Time: Tuesday, June 27, 2017 21:25 - CONCLUSION: Normal examination. Anish Shin MD Objective Remarks General: NAD, AAOx3 Chest: Improving aeration bilaterally Cardiac: Regular Abd: +BS, soft ND/NT Ext: No edema A/P Problem List: (1) TIA (transient ischemic attack) ICD Codes: G45.9 - Transient cerebral ischemic attack, unspecified Status: Acute Plan: TIA - Possible TIA already on Plavix from last admit 2 weeks ago and had full neuro work up with negative MRI brain ,MRA brain MRA carotids - Patient reports difficulty with word finding the evening prior to admission which has resolved - Patient also reports that her Neurologist Dr. Hernandez increased her Topamax on 06/24/17 to 2 tablets daily and increased Carbamazepine 200 mg 1.5 tablets AM, 1 tablet afternoon and 1.5 tablets at night - It is doubtful that her symptoms are related to seizure or migraine HAs. No evidence of CVA on imaging and ?tia questioned. Stress/depression could be playing a role with recent loss of . - Continue Plavix, ASA added daily - MRI Brain (06/28/17) --> No acute intracranial abnormality is identified. There are no findings to indicate recent ischemia. Stable chronic white matter changes are present. Air-fluid level in left maxillary antrum. - MRA Head (06/28/17) --> 3 mm outpouching of the supraclinoid carotid on the right. - Carotid US (06/28/17) --> Minimal plaque without significant stenosis. - 2D echocardiogram (06/29/17) - Estimated EF 50-55% - Mild aortic dilatation at the level of the sinuses of Valsalva - Mild mitral annular calcification - Mild tricuspid valve regurg - Estimated mild pulmonary HTN (40mmHg) - Continue electronic device monitor - EEG (06/29/17) --> negative for any seizure activity - Telemetry readings on 06/29 with runs of Atrial tachycardia vs. A. fib. With the pts possible TIA symptoms and questionable A. fib on telemetry we stopped the ASA and Plavix and started Eliquis 5mg po BID. - Holter monitor --> pending completion - Attending physician spoke with the pts PCP, Dr. De La O, who has requested an US of the aorta be preformed to r/o aortic aneurysm. This examination was negative for aneurysmal dilation Trigeminal neuralgia - Patient Neurologist, Dr. Hernandez, increased Topamax to 2 tablets daily and increased Carbamazepine 200 mg 1.5 tablets AM, 1 tablet afternoon and 1.5 tablets at night - Carbamazepine level 11.4 - Pt currently on Topamax 25 mg PO BID and Carbamazepine 400 mg PO BID Cough/Bronchitis - Levaquin 500mg po daily started on 06/29 - Duonebs Q6HWA, order nebulizer machine for home - Mucinex (2) Trigeminal neuralgia ICD Codes: G50.0 - Trigeminal neuralgia Status: Chronic Plan: see above (3) Bronchitis ICD Codes: J40 - Bronchitis, not specified as acute or chronic Status: Acute Plan: see above Assessment and Plan Patient examined. Assessment and plan formulated with Jinny Azevedo PA-C. I agree with the above. pt doing well. bronchitis better. cont rx tia sx's and afib changes on tele. holter pending. anticoagulation. f/u cardiology no need for rate control now. elevated esr nonspecific. discussed with pcp. recheck in 2 or 3 weeks after the acute illness. If cough persists or esr still elevated then consider ct imaging of chest. discussed with pt and daughter. Problem Qualifiers (1) TIA (transient ischemic attack): Qualified Codes: G45.9 - Transient cerebral ischemic attack, unspecified Jinny Azevedo Jun 30, 2017 08:38 Jose A Lopez MD Jun 30, 2017 15:08
--- NOTE | 2017-06-30 08:51 | HHI.PR ---
Review/Management Diagnosis/Plan: (1) TIA (transient ischemic attack) ICD Codes: G45.9 - Transient cerebral ischemic attack, unspecified Status: Acute Plan: recurrent confusion with negative previous tia w/u elevated esr/crp; has had low grade temps fever- ? 2/2 uri but lesser likely recs +fever overnight juan negative f/u eeg-no sz neuro otherwise stable elevated esr/crp, low grade temps- ? etiology. can be seen with GCA but no temp tenderness or other constitutional symptoms medical for further input on esr/crp- ? cancer markers/tb?- defer to medical should have f/u esr/crp d/w pt/children at bedside d/w medical this am no driving until seen by her neurologist- have appt upcoming on tuesday (2) Trigeminal neuralgia ICD Codes: G50.0 - Trigeminal neuralgia Status: Chronic (3) Hypertension ICD Codes: I10 - Essential (primary) hypertension Status: Chronic Subjective Subjective Comments No acute events reported No headache No chest pain No dyspnea Active Medications Current Medications Medications (Trade) Dose Ordered Sig/Tolu Route Start Time Stop Time Status Last Admin (Prinivil) 20 mg BID PO 06/28/17 09:00 06/29/17 20:44 (Pravachol) 80 mg HS PO 06/28/17 21:00 06/29/17 20:44 (Topamax) 25 mg BID PO 06/28/17 09:00 06/29/17 20:44 (Protonix) 20 mg DAILY PO 06/28/17 09:00 06/29/17 08:56 (NS Flush) 2 ml UNSCH PRN IV FLUSH 06/28/17 04:45 (NS Flush) 2 ml BID IV FLUSH 06/28/17 09:00 06/29/17 20:42 (Narcan Inj) 0.4 mg UNSCH PRN IV PUSH 06/28/17 04:45 (Monica-Colace) 1 tab BID PO 06/28/17 09:00 06/29/17 08:56 (Milk Of Magnesia Liq) 30 ml Q12H PRN PO 06/28/17 04:45 (Senokot) 17.2 mg Q12H PRN PO 06/28/17 04:45 (Dulcolax Supp) 10 mg DAILY PRN RECTAL 06/28/17 04:45 (Lactulose Liq) 30 ml DAILY PRN PO 06/28/17 04:45 (TEGretol) 300 mg BID PO 06/28/17 21:00 06/29/17 20:43 (TEGretol) 200 mg DAILY@1400 PO 06/29/17 14:00 06/29/17 13:14 (Duoneb Neb) 1 ampule Q6HR WHILE AWAKE NEB NEB 06/28/17 20:00 06/29/17 20:25 (Duoneb Neb) 1 ampule Q4HR NEB PRN NEB 06/28/17 15:45 (Claritin) 10 mg DAILY PO 06/28/17 16:00 06/29/17 08:55 (Mucinex Er) 600 mg BID PO 06/28/17 21:00 06/29/17 20:44 (Pill Splitter) 1 ea UNSCH PRN OTHER 06/28/17 16:00 (Tylenol) 650 mg Q4H PRN PO 06/29/17 09:15 06/29/17 16:11 (Eliquis) 5 mg BID PO 06/29/17 21:00 06/29/17 20:42 (Levaquin) 500 mg Q24H PO 06/29/17 17:00 06/29/17 17:44 Allergies Allergies Coded Allergies No Known Allergies (Verified Allergy, Unknown, 06/28/17) Review of Systems All other ROS: ROS reviewed as documented in chart Exam I&O / VS Vital Signs Date Time Temp Pulse Resp B/P (MAP) Pulse Ox O2 Delivery O2 Flow Rate FiO2 06/30/17 07:34 98.4 93 18 128/76 (93) 91 06/30/17 04:10 90 06/30/17 03:40 99.6 94 14 131/73 (92) 93 06/30/17 00:20 101.5 101 16 137/67 (90) 91 06/29/17 23:55 104 06/29/17 20:25 92 06/29/17 19:27 98.1 101 16 131/73 (92) 95 06/29/17 17:43 18 06/29/17 16:01 99.2 90 18 135/66 (89) 96 06/29/17 15:02 104 06/29/17 12:25 98.3 84 20 120/66 (84) 94 General: Alert and Oriented, No acute distress Eye: EOMI Respiratory: Non-labored respirations Neurologic: Alert, Oriented, Normal sensory, Normal motor, No focal defects, CN II-XII intact Psychiatric: Cooperative, Appropriate mood & affect Exam Comments no sikhism tenderness, ox 3, no aphasia, doing well but has occasional coughing Objective Micro and Labs Date/Time Source Procedure Growth Status 06/27/17 21:50 Blood Peripheral Aerobic Blood Culture - Preliminary NO GROWTH IN 2 DAYS Resulted 06/27/17 21:50 Blood Peripheral Anaerobic Blood Culture - Preliminary NO GROWTH IN 2 DAYS Resulted Problem Qualifiers (1) Hypertension: Qualified Codes: I10 - Essential (primary) hypertension Willis Diggs MD Jun 30, 2017 08:51
[2017-06-30] MEDS: LISINOPRIL 20 MG TAB PO SCH (09:00)
[2017-06-30] MEDS: APIXABAN 5 MG TABLET PO SCH (09:00)
[2017-06-30] MEDS: TOPIRAMATE 25 MG TAB PO SCH (09:00)
[2017-06-30] MEDS: LORATADINE 10 MG TAB PO SCH (09:00)
[2017-06-30] MEDS: guaiFENesin E.R. 600 MG TAB PO SCH (09:00)
[2017-06-30] MEDS: SODIUM CHLORIDE 0.9% FLUSH 10 ML FLUSH IV FLUSH SCH (09:00)
[2017-06-30] MEDS: carBAMazepine 200 MG TAB PO SCH ×2 (09:00→15:19)
[2017-06-30] MEDS: PANTOPRAZOLE SOD 20 MG DELAYED RELEASE TAB PO SCH (09:00)
[2017-06-30] MEDS: DOCUSATE SODIUM 50 MG/SENNA 8.6 MG TAB PO SCH (09:00)
[2017-06-30] MEDS ORDERED: APIX5TAB PO (09:05)
[2017-06-30] MEDS ORDERED: LEVA500T33 PO (09:05)
[2017-06-30] MEDS ORDERED: guaiFENesin ER PO (09:05)
[2017-06-30] MEDS ORDERED: NEBULIZER/ADULT1 KIT (09:06)
[2017-06-30] MEDS ORDERED: IPRA0.02 NEB (14:11)
[2017-06-30] MEDS ORDERED: ALBU0.08 NEB (14:11)
--- NOTE | 2017-06-30 14:16 | HHI.DCPOC ---
Discharge Care Plan Diagnosis: (1) TIA (transient ischemic attack) (2) History of trigeminal neuralgia (3) Hypertension (4) Hyperlipidemia Goals to Promote Your Health * To prevent worsening of your condition and complications * To maintain your health at the optimal level Directions to Meet Your Goals Take your medications as prescribed Follow your dietary instruction Follow activity as directed Keep your appointments as scheduled Take your immunizations and boosters as scheduled If your symptoms worsen call your PCP, if no PCP go to Urgent Care Center or Emergency Room Smoking is Dangerous to Your Health. Avoid second hand smoke Call the 24-hour hour crisis hotline for domestic abuse at Jinny Azevedo Jun 30, 2017 14:16
[2017-06-30] MEDS ORDERED: CARB200T PO ×2 (14:45)
--- NOTE | 2017-06-30 14:49 | HHI.FF ---
Face to Face Verification Diagnosis: (1) TIA (transient ischemic attack) (2) Cardiac dysrhythmia (3) Hypertension (4) Hyperlipidemia (5) History of trigeminal neuralgia Physical Therapy Order: Evaluate and Treat, Improve ambulation, Strength and gait training Home Health Nursing Order: Medical education Signs/symptoms of disease process Medication education-adverse effect Nursing assessment with vital signs I have seen patient Lamar Keita on 06/30/17. My clinical findings support the need for the requested home health care services because: Deconditioned w/ increased weakness I certify that my clinical findings support that this patient is homebound because: Unsteady gait/balance Jinny Azevedo Jun 30, 2017 14:49
--- NOTE | 2017-06-30 14:58 | HHI.DS ---
Discharge Summary Admission Date Jun 28, 2017 at 00:55 Discharge Date: Jun 30, 2017 Admitting Diagnosis altered sensorium, tia vs cva, hypokalemia, htn, hyperlipedemia, tri (1) TIA (transient ischemic attack) Diagnosis: Principal ICD Codes: G45.9 - Transient cerebral ischemic attack, unspecified Status: Acute (2) Cardiac dysrhythmia Diagnosis: Secondary ICD Codes: I49.9 - Cardiac arrhythmia, unspecified (3) Trigeminal neuralgia Diagnosis: Secondary ICD Codes: G50.0 - Trigeminal neuralgia Status: Chronic (4) Bronchitis Diagnosis: Secondary ICD Codes: J40 - Bronchitis, not specified as acute or chronic Status: Acute (5) Hypertension Diagnosis: Secondary ICD Codes: I10 - Essential (primary) hypertension Status: Chronic (6) Hyperlipemia Diagnosis: Secondary ICD Codes: E78.5 - Hyperlipidemia, unspecified Status: Acute Consultants Dr. Willis Diggs - Neurology Brief History Diagnoses a 77-year-old female with a history of hypertension, hyperlipidemia, trigeminal neuralgia, recent TIA, presents today at the request of her family members for her not acting her normal self. According to EMS, neighbor saw her and thought she was acting slightly more bizarre than normal. They called her daughter & and the daughter eventually called 911 for evaluation. The patient denies any issues. She is able to answer questions and able to tell is what medication she is on. The patient does state that she has trigeminal neuralgia and has missed her evening medications. She is requesting that we give her those so that she does not have recurrent pain. Someone told EMS that she was having very frequency. The patient denies this at this time. The patient does have tachycardia with a heart rate in the 120s. Originally the fire medics took a temperature and found her temperature to be 101.4. [facility] states they retested at it and it was 98.6. Urine no other complaints time of my examination. At time of my exam there was no confusion answered all questions right away . over all has some mild confusion . There is question of recent increase in meds will observe over night . Patient was in hospital about 2 weeks ago and had full neuro work up and sent home with probableTIA. [facility] CBC/BMP: 06/28/17 0703 06/28/17 0703 Significant Findings Laboratory Tests Test 06/27/17 21:20 06/28/17 07:03 06/28/17 21:15 06/28/17 21:18 White Blood Count 14.3 TH/MM3 (4.0-11.0) 12.4 TH/MM3 (4.0-11.0) Neutrophils (%) (Auto) 90.0 % (16.0-70.0) 85.4 % (16.0-70.0) Lymphocytes (%) (Auto) 3.3 % (9.0-44.0) 6.6 % (9.0-44.0) Neutrophils # (Auto) 12.9 TH/MM3 (1.8-7.7) 10.6 TH/MM3 (1.8-7.7) Lymphocytes # (Auto) 0.5 TH/MM3 (1.0-4.8) 0.8 TH/MM3 (1.0-4.8) Urine Ketones 10 mg/dL (NEG) Urine Leukocyte Esterase TRACE (NEG) Urine Mucus FEW /lpf (OCC) Calcium Level 8.3 MG/DL (8.5-10.1) 8.0 MG/DL (8.5-10.1) Potassium Level 3.4 MEQ/L (3.5-5.1) Estimat Glomerular Filtration Rate 72 ML/MIN (>89) Red Blood Count 3.61 MIL/MM3 (4.00-5.30) Hematocrit 34.1 % (35.0-46.0) Monocytes # (Auto) 1.0 TH/MM3 (0-0.9) Erythrocyte Sedimentation Rate 51 mm/hr (0-30) C-Reactive Protein 26.50 MG/DL (0.00-0.30) Imaging Last Impressions Aorta Ultrasound 06/29/17 0000 Signed Impressions: Service Date/Time: Thursday, June 29, 2017 16:44 - CONCLUSION: Negative for aneurysmal dilatation. Jez Finch MD FACR Head Magnetic Resonance Angiography 06/28/17 0000 Signed Impressions: Service Date/Time: Wednesday, June 28, 2017 16:49 - CONCLUSION: 1. 3 mm outpouching of the supraclinoid carotid on the right. Yovany Finch MD Carotid Artery Ultrasound 06/28/17 0000 Signed Impressions: Service Date/Time: Wednesday, June 28, 2017 17:45 - CONCLUSION: Minimal plaque without significant stenosis. Anish Shin MD Brain MRI 06/28/17 0000 Signed Impressions: Service Date/Time: Wednesday, June 28, 2017 16:49 - CONCLUSION: 1. No acute intracranial abnormality is identified. There are no findings to indicate recent ischemia. Stable chronic white matter changes are present. 2. Air-fluid level in left maxillary antrum. Suggest correlating for acute sinus disease. Anish Tadeo MD Head CT [id number]/[id number] Signed Impressions: Service Date/Time: Tuesday, June 27, 2017 23:34 - CONCLUSION: Normal examination. Abrahan Lopez MD Chest X-Ray 06/27/[id number] Signed Impressions: Service Date/Time: Tuesday, June 27, 2017 21:25 - CONCLUSION: Normal examination. Anish Shin MD PE at Discharge General: NAD, AAOx3 Chest: Improving aeration bilaterally Cardiac: Regular Abd: +BS, soft ND/NT Ext: No edema Hospital Course TIA - Possible TIA already on Plavix from last admit 2 weeks ago and had full neuro work up with negative MRI brain ,MRA brain MRA carotids - Patient reports difficulty with word finding the evening prior to admission which has resolved - Patient also reports that her Neurologist Dr. Hernandez increased her Topamax on 06/24/17 to 2 tablets daily and increased Carbamazepine 200 mg 1.5 tablets AM, 1 tablet afternoon and 1.5 tablets at night - It is doubtful that her symptoms are related to seizure or migraine HAs. No evidence of CVA on imaging and ?tia questioned. Stress/depression could be playing a role with recent loss of . - MRI Brain (06/28/17) --> No acute intracranial abnormality is identified. There are no findings to indicate recent ischemia. Stable chronic white matter changes are present. Air-fluid level in left maxillary antrum. - MRA Head (06/28/17) --> 3 mm outpouching of the supraclinoid carotid on the right. - Carotid US (06/28/17) --> Minimal plaque without significant stenosis. - 2D echocardiogram (06/29/17) - Estimated EF 50-55% - Mild aortic dilatation at the level of the sinuses of Valsalva - Mild mitral annular calcification - Mild tricuspid valve regurg - Estimated mild pulmonary HTN (40mmHg) - EEG (06/29/17) --> negative for any seizure activity - Telemetry readings on 06/29 with runs of Atrial tachycardia vs. A. fib. With the pts possible TIA symptoms and questionable A. fib on telemetry we stopped the ASA and Plavix and started Eliquis 5mg po BID. - Holter monitor --> pending cardiology reading. Pt will need to followup with Cardiology regarding results. - Attending physician spoke with the pts PCP, Dr. De La O, who has requested an US of the aorta be preformed to r/o aortic aneurysm. This examination was negative for aneurysmal dilation Trigeminal neuralgia - Patient Neurologist, Dr. Hernandez, increased Topamax to 2 tablets daily and increased Carbamazepine 200 mg 1.5 tablets AM, 1 tablet afternoon and 1.5 tablets at night - Carbamazepine level 11.4 - Pt currently on Topamax 25 mg PO BID and new Tegretol dose - Pt had noted elevated ESR/CRP and low grade temps. Neurology concerned about the possibility of GCA but no temp tenderness or other constitutional symptoms - This was discussed with her PCP at the time of discharge and recommended to have repeat labs after her acute URI has resolved. And if still elevated proceed with further workup at that time. Cough/Bronchitis - Pt has had clinical improvement on Duonebs, Abx and Mucinex. - Cont Levaquin 500mg po daily started on 06/29 for total of 7 days. - Cont. Duonebs Q6HWA, order nebulizer machine for home - Cont. Mucinex - If pt does not have resolution of symptoms may need to consider outpt Chest CT, this was discussed with the pts PCP, Dr. De La O, as well. Pt will need a 1 week followup with her PCP, Dr. De La O. Pt will need a followup with Neurology, Dr. Hernandez, she has a f/u appt next week already scheduled Pt will need followup with Cardiology, Dr. Rincon, for review of the Holter monitor. Pt Condition on Discharge: Stable Discharge Disposition: Disch w/ Home Health Serv Discharge Instructions DIET: Follow Instructions for: Heart Healthy Diet Activities you can perform: Regular-No Restrictions Jinny Azevedo Jun 30, 2017 14:58 Jose A Lopez MD Jun 30, 2017 15:06
--- NOTE | 2017-07-01 16:56 | HM ---
Date Performed: 06/29/2017 Time Performed: 16:42:00 HOOKUP DATE: 06/29/17 04:42:00 PM Wed ANALYSIS START TIME: 06/29/2017 4:47:00 PM ANALYSIS END TIME: 06/30/2017 3:31:19 PM PATIENT AGE: 77 PATIENT HEIGHT PATIENT WEIGHT DRUG LIST PATIENT DIAGNOSIS TEST NARRATIVE: The patient's average heart rate was 94 BPM. Heart rates greater than 120 B PM were noted 3% of the time. No episodes of bradycardia were noted. No pauses exceeding 2.0 sec onds were noted. 20 ventricular ectopics, which represented < 1% of the total beat count, were no jose. The highest ventricular ectopic frequency occurred from 07:00 AM to 08:00 AM Jess[place]. During this time 6 VE(s) occurred. Ventricular ectopics were observed as 20 isolated beat(s) only. No couplets or runs were noted. 1367 supraventricular ectopics, which represented 1% of the total beat count, were noted. The highest supraventricular ectopic frequency occurred from 06:00 AM to 07:00 AM Jess[place]. During this time 303 SVE(s) occurred. No episodes of ST depression (defined as -1.0 mm or more) were noted in channel 1. No episodes of ST depression (defined as -1.0 mm or more) were noted in krista nnel 2. No episodes of ST depression (defined as -1.0 mm or more) were noted in channel 3. TEST INTERPRETATION: Patient has two episodes of a burst of 6 PACs in a row at a rapid rate of 1 70-210, all self-terminating back to Sinus rhythm . There were rare episodes of 2-3 PACs in a row. No prolonged runs of PACs were seen, and there was n o atrial fibrillation present and no prolonged pauses. No heart block occurred. Rare ventricular ecto py was present. No patient diary was returned. Overall, this patient has a jegu-[id number] amount of atrial ectopy with some runs of 2 and 3 in row, and two rows of 6 in a row, at a rapid rate, but all self-terminating. No actual atrial fibrillation is seen, although rhythms such as this could be a melendrez rbinger of atrial fibrillation. No pauses present and very little ventricular ectopy present. Signed by : Jose A Wild
== END 2017-06-30 16:30 | disposition home or self-care (01) ==
LOC: NEPE 21:11 → NEDA 06-28 00:55 → NEPHCDU 06-28 04:02
PROVIDERS: ADMIT Hospitalist; ATTEND Hospitalist
DX: G45.9 Transient cerebral ischemic attack, unspecified (principal); G50.0 Trigeminal neuralgia; E87.6 Hypokalemia; I49.9 Cardiac arrhythmia, unspecified; J40 Bronchitis, not specified as acute or chronic; R70.0 Elevated erythrocyte sedimentation rate; J06.9 Acute upper respiratory infection, unspecified; R35.0 Frequency of micturition; R00.0 Tachycardia, unspecified; I10 Essential (primary) hypertension; E78.5 Hyperlipidemia, unspecified; K21.9 Gastro-esophageal reflux disease without esophagitis; I27.20 Pulmonary hypertension, unspecified; I07.1 Rheumatic tricuspid insufficiency; I77.819 Aortic ectasia, unspecified site; E78.00 Pure hypercholesterolemia, unspecified; H91.90 Unspecified hearing loss, unspecified ear; M19.90 Unspecified osteoarthritis, unspecified site; Z97.4 Presence of external hearing-aid; Z79.899 Other long term (current) drug therapy
CPT/HCPCS: 70450; 70544; 70551; 71010; 76775; 80048; 80053; 80156; 81001; 82140; 82550; 82552; 84443; 84484; 85025; 85652; 86038; 86140; 86592; 87040; 93005; 93225; 93226; 93306; 93880; 94640; 94664; 95819; 96360; 96361; 97110; 97161; 97530; 99285; G0378; G8987; G8988; J7030

== ENCOUNTER 2017-08-06 20:39 | Observation (INO) | payer MEDICARE ==
[~2017-08-06] VITALS: Ht 160 cm; Wt 53.2 kg
[~2017-08-06 20:39] MED LIST changes: +ALBU0.08 NEB; +APIX5TAB PO; +IPRA0.02 NEB; +LEVA500T33 PO; +NEBULIZER/ADULT1 KIT; -PLAV75TA29 PO; +guaiFENesin ER PO
[2017-08-06 20:43] VITALS: BP 149/81; PULSE 100; RESP 16; TEMP 100.5; O2SAT 96
[2017-08-06] MEDS ORDERED: IBUPROFEN 800 MG TAB PO ONE (21:30)
[2017-08-06 21:32] VITALS: BP 109/66; PULSE 91; RESP 16; TEMP 102.6; O2SAT 98
--- NOTE | 2017-08-06 22:04 | RADRPT ---
EXAM DATE/TIME: 08/06/2017 21:49 [facility] COMPARISON: CHEST SINGLE AP, June 27, 2017, 21:25. INDICATIONS : Fever. MEDICAL HISTORY : Hypertension. SURGICAL HISTORY : Tonsillectomy. ENCOUNTER: Initial ACUITY: 2 days PAIN SCORE: 0/10 LOCATION: chest FINDINGS: Single AP view of the chest. The lungs are clear. Cardiomediastinal silhouette within normal limits. No evidence of pleural effusion or pneumothorax. CONCLUSION: No acute cardiopulmonary disease identified. Yuri Fernandez MD on August 06, 2017 at 22:02 Board Certified Radiologist. This report was verified electronically.
--- NOTE | 2017-08-06 22:19 | PD ---
HPI Chief Complaint: Fever Time Seen by Provider: 21:09 Travel History International Travel<30 days: No Contact w/Intl Traveler<30days: No Traveled to known affect area: No History of Present Illness HPI 77-year-old female presents emergency department for evaluation of altered mental status that was first noticed by her family early this afternoon. Patient is brought to our facility by her son who states that his mom has been wondering around the house and couldn't find the bathroom. She is confused as far as where she is, what year it is and how old she she is. Son reports that the mother has been sleeping more lately and still reports being tired despite increased sleep. Son denies any fevers however the patient is found to be febrile in triage. The son states the mother has not complained of nausea, vomiting, diarrhea. She was diagnosed 2 weeks ago with an upper respiratory infection but the cough associated has pretty much resolved at this time. Patient has had 2 recent TIAs with hospital admission. Patient's in May and 4 days later she had her first TIA. In June she had her second TIA and was hospitalized. The patient is pleasant and sitting up in bed smiling but answers questions inappropriately. No focal neurological deficit noted. PFSH Past Medical History Hx Anticoagulant Therapy: Yes (baby ASA) Arthritis: Yes Asthma: No Atrial Fibrillation: Yes Blood Disorders: No Anxiety: No Depression: No Heart Rhythm Problems: No Cancer: No Cardiovascular Problems: Yes (HTN) High Cholesterol: Yes Chemotherapy: No Chest Pain: No Congestive Heart Failure: No COPD: No Cerebrovascular Accident: Yes Diabetes: No Diminished Hearing: Yes (wears hearing aids) Endocrine: No Gastrointestinal Disorders: Yes (GERD) GERD: Yes Genitourinary: No Hypertension: Yes Immune Disorder: No Implanted Vascular Access Dvce: No Musculoskeletal: No Neurologic: Yes (TRIGEMINA NEURALGIA) Psychiatric: No Reproductive: No Respiratory: No Radiation Therapy: No Sleep Apnea: No Thyroid Disease: No Tetanus Vaccination: < 5 Years Menopausal: Yes : 2 Para: 2 Past Surgical History Tonsillectomy: Yes Other Surgery: Yes (TONSILLS REMOVED AT 5 Y/O) Social History Alcohol Use: No Tobacco Use: No Substance Use: No Allergies-Medications (Allergen,Severity, Reaction): Coded Allergies: No Known Allergies (Verified Allergy, Unknown, 08/06/17) Reported Meds & Prescriptions Reported Meds & Active Scripts Active Carbamazepine 200 Mg Tab 200 Mg PO DAILY@1400 Carbamazepine 200 Mg Tab 300 Mg PO BID Ipratropium Neb (Ipratropium [place]) 0.5 Mg/2.5 Ml Amp 0.5 Mg NEB Q4HR NEB PRN Albuterol Neb (Albuterol Sulfate) 2.5 Mg/3 Ml Neb 2.5 Mg NEB Q4HR NEB PRN Nebulizer/Adult Mask (N/A) 1 Kit Kit Kit .ROUTE DIRECTED [guaiFENesin ER] 600 MG Tabcr 600 Mg PO BID Eliquis (Apixaban) 5 Mg Tab 5 Mg PO BID Reported Topamax (Topiramate) 25 Mg Tab 25 Mg PO BID Omeprazole 20 Mg Tab 20 Mg PO DAILY Pravastatin 80 Mg Tab 80 Mg PO HS Benazepril (Benazepril HCl) 20 Mg Tab 20 Mg PO BID Review of Systems Except as stated in HPI: all other systems reviewed are Neg General / Constitutional: Positive: Fever Physical Exam Narrative GENERAL: Well-nourished, well-developed white elderly 77-year-old female in no acute distress. SKIN: Focused skin assessment warm/dry. HEAD: Atraumatic. Normocephalic. EYES: Pupils equal and round. No scleral icterus. No injection or drainage. ENT: No nasal bleeding or discharge. Mucous membranes pink and moist. NECK: Trachea midline. No JVD. CARDIOVASCULAR: Regular rate and rhythm. No murmur appreciated. RESPIRATORY: No accessory muscle use. Clear to auscultation. Breath sounds equal bilaterally. GASTROINTESTINAL: Abdomen soft, non-tender, nondistended. Hepatic and splenic margins not palpable. MUSCULOSKELETAL: No obvious deformities. No clubbing. No cyanosis. No edema. NEUROLOGICAL: Awake and confused. No obvious cranial nerve deficits. Motor grossly within normal limits. Normal speech. PSYCHIATRIC: Appropriate mood and affect; patient is confused. Data Data Last Documented VS Vital Signs Date Time Temp Pulse Resp B/P (MAP) Pulse Ox O2 Delivery O2 Flow Rate FiO2 08/06/17 22:47 101.5 95 18 104/59 (74) 95 Room Air Orders Orders Electrocardiogram (08/06/17 21:21) Complete Blood Count With Diff (08/06/17 21:21) Comprehensive Metabolic Panel (08/06/17 21:21) Prothrombin Time / Inr (Pt) (08/06/17 21:21) Act Partial Throm Time (Ptt) (08/06/17 21:21) Lactic Acid Sepsis Protocol (08/06/17 21:21) Magnesium (Mg) (08/06/17 21:21) Lipase (08/06/17 21:21) Ckmb (Isoenzyme) Profile (08/06/17 21:21) Troponin I (08/06/17 21:21) Urinalysis - C+S If Indicated (08/06/17 21:21) Influenzae A/B Antigen (08/06/17 21:21) Blood Culture (08/06/17 21:21) Chest, Single Ap (08/06/17 21:21) Ct Brain W/O Iv Contrast(Rout) (08/06/17 21:21) Ibuprofen (Motrin) (08/06/17 21:30) Cath For Specimen (08/06/17 23:02) Sodium Chlorid 0.9% 500 Ml Inj (Ns 500 M (08/06/17 23:15) Acetaminophen (Tylenol) (08/06/17 23:15) Labs Laboratory Tests Test 08/06/17 21:45 White Blood Count 8.3 TH/MM3 Red Blood Count 3.99 MIL/MM3 Hemoglobin 12.6 GM/DL Hematocrit 37.2 % Mean Corpuscular Volume 93.1 FL Mean Corpuscular Hemoglobin 31.5 PG Mean Corpuscular Hemoglobin Concent 33.8 % Red Cell Distribution Width 14.2 % Platelet Count 320 TH/MM3 Mean Platelet Volume 7.3 FL Neutrophils (%) (Auto) 92.2 % Lymphocytes (%) (Auto) 2.1 % Monocytes (%) (Auto) 5.1 % Eosinophils (%) (Auto) 0.4 % Basophils (%) (Auto) 0.2 % Neutrophils # (Auto) 7.6 TH/MM3 Lymphocytes # (Auto) 0.2 TH/MM3 Monocytes # (Auto) 0.4 TH/MM3 Eosinophils # (Auto) 0.0 TH/MM3 Basophils # (Auto) 0.0 TH/MM3 CBC Comment DIFF FINAL Differential Comment Prothrombin Time 10.3 SEC Prothromb Time International Ratio 1.0 RATIO Activated Partial Thromboplast Time 29.3 SEC Blood Urea Nitrogen 16 MG/DL Creatinine 0.74 MG/DL Random Glucose 110 MG/DL Total Protein 6.3 GM/DL Albumin 3.2 GM/DL Calcium Level 8.3 MG/DL Magnesium Level 1.9 MG/DL Alkaline Phosphatase 84 U/L Aspartate Amino Transf (AST/SGOT) 13 U/L Alanine Aminotransferase (ALT/SGPT) 16 U/L Total Bilirubin 0.3 MG/DL Sodium Level 137 MEQ/L Potassium Level 3.8 MEQ/L Chloride Level 103 MEQ/L Carbon Dioxide Level 26.6 MEQ/L Anion Gap 7 MEQ/L Estimat Glomerular Filtration Rate 77 ML/MIN Lactic Acid Level 1.2 mmol/L Total Creatine Kinase 81 U/L Troponin I LESS THAN 0.02 NG/ML Lipase 89 U/L [facility] Medical Decision Making Medical Screen Exam Complete: Yes Emergency Medical Condition: Yes Differential Diagnosis Differential diagnoses include but not limited to UTI, URI, influenza, sepsis, TIA, CVA Narrative Course Patient placed on monitor and IV obtained. Blood works in the lab. CBC, CMP, PT/INR, lactic acid, magnesium, lipase, troponin CK-MB, urinalysis, influenza, blood cultures ordered and pending. EKG ordered and interpreted. EKG shows sinus rhythm with heart rate 95. Chest x-ray ordered and shows no acute findings. Brain CT ordered and pending. Patient was febrile in triage, ibuprofen ordered. CBC shows no leukocytosis CMP shows no acute findings. Troponin negative at less than 0.02. Lipase within normal limits at 89. Magnesium within normal limits at 1.9. Lactic acid within normal limits at 1.2. Urinalysis has not been able to be obtained at this time. 500 mL bolus normal saline ordered in mini catheter for specimen ordered. Patient still febrile this time, Tylenol ordered. Dr. Sanches assumes care of this patient. Please see her documentation for further details and disposition. Love Eng Aug 06, 2017 22:19
[2017-08-06 22:33] LABS: ALBUMIN 3.2 GM/DL (3.4-5.0); ALT (GPT) 16 U/L (10-53); AST (GOT) 13 U/L (15-37); BICARBONATE 26.6 MEQ/L (21.0-32.0); BLOOD UREA NITROGEN 16 MG/DL (7-18); CALCIUM 8.3 MG/DL (8.5-10.1); CHLORIDE 103 MEQ/L (98-107); CREATININE 0.74 MG/DL (0.50-1.00); GLOMERULAR FILTRATION RATE 77 ML/MIN (>89); GLUCOSE,RANDOM 110 MG/DL (74-106); LIPASE 89 U/L (73-393); MAGNESIUM 1.9 MG/DL (1.5-2.5); SODIUM (NA) 137 MEQ/L (136-145)
[2017-08-06 22:37] LABS: ALKALINE PHOSPHATASE 84 U/L (45-117); AUTOMATED NEUTROPHIL # 7.6 TH/MM3 (1.8-7.7); BASOPHIL % 0.2 % (0.0-2.0); EOSINOPHIL % 0.4 % (0.0-4.0); HEMATOCRIT 37.2 % (35.0-46.0); HEMOGLOBIN 12.6 GM/DL (11.6-15.3); LYMPH % 2.1 % (9.0-44.0); LYMPHOCYTE # 0.2 TH/MM3 (1.0-4.8); MEAN CELL VOLUME 93.1 FL (80.0-100.0); MEAN CORPUSCULAR HEMOGLOBIN 31.5 PG (27.0-34.0); MEAN CORPUSCULAR HGB CONC 33.8 % (32.0-36.0); MEAN PLATELET VOLUME 7.3 FL (7.0-11.0); MONO % 5.1 % (0.0-8.0); MONOCYTE # 0.4 TH/MM3 (0-0.9); NEUT % 92.2 % (16.0-70.0); PLATELET COUNT 320 TH/MM3 (150-450); RED BLOOD COUNT 3.99 MIL/MM3 (4.00-5.30); RED CELL DISTRIBUTION WIDTH 14.2 % (11.6-17.2); TOTAL BILIRUBIN ADULT 0.3 MG/DL (0.2-1.0); TOTAL PROTEIN 6.3 GM/DL (6.4-8.2); TROPONIN I LESS THAN 0.02 NG/ML (0.02-0.05); WHITE BLOOD COUNT 8.3 TH/MM3 (4.0-11.0)
[2017-08-06 22:45] LABS: PROTHROMBIN TIME - PATIENT 10.3 SEC (9.8-11.6)
[2017-08-06 22:47] VITALS: BP 104/59; PULSE 95; RESP 18; TEMP 101.5; O2SAT 95
--- NOTE | 2017-08-06 22:48 | RADRPT ---
EXAM DATE/TIME: 08/06/2017 22:26 [facility] COMPARISON: CT BRAIN W/O CONTRAST, June 27, 2017, 23:34. INDICATIONS : Altered mental status. RADIATION DOSE: 28.76 CTDIvol (mGy) MEDICAL HISTORY : Cerebrovascular disease. Cardiovascular disease Hypertension.GERD SURGICAL HISTORY : None. ENCOUNTER: Initial ACUITY: 1 day PAIN SCALE: 0/10 LOCATION: cranial TECHNIQUE: Multiple contiguous axial images were obtained of the head. Using automated exposure control and adj ustment of the mA and/or kV according to patient size, radiation dose was kept as low as reasonably a chievable to obtain optimal diagnostic quality images. DICOM format image data is available electro nically for review and comparison. FINDINGS: CEREBRUM: The ventricles are normal for age. No evidence of midline shift, mass lesion, hemorrhage or acute in farction. No extra-axial fluid collections are seen. POSTERIOR FOSSA: The cerebellum and brainstem are intact. The 4th ventricle is midline. The cerebellopontine angle i s unremarkable. EXTRACRANIAL: The visualized portion of the orbits is intact. SKULL: The calvaria is intact. No evidence of skull fracture. CONCLUSION: No acute intracranial findings. Yuri Fernandez MD on August 06, 2017 at 22:44 Board Certified Radiologist. This report was verified electronically.
[2017-08-06] MEDS ORDERED: ACETAMINOPHEN 325 MG TAB PO ONE (23:15)
[2017-08-06] MEDS ORDERED: SODIUM CHLORID 0.9% 500 ML INJ 500 ML IV ONE (23:15)
--- NOTE | 2017-08-06 23:28 | PD ---
Physical Exam Narrative I, Dr. Sanches, have reviewed the advance practice practitioner's documentation and am in agreement, met with the patient face to face, made the diagnosis, and the medical decision making was done by me. *My assessment and Findings: UTI vs. dementia vs. TIA 77yo F with PMH of trigeminal neuralgia, afib on eliquis, recent TIA, HTN, HLD was brought in by son for evaluation of possible TIA. As per son, he noticed that she was having difficulty finding her words when he talked to her today and this was similar to her last TIA. Pt also would answer inappropriately to his questions. Pt is AAOx3 and denies any headache, neck pain, visual changes, chest pain, sob, n/v, abdominal pain, focal weakness or numbness. Pt found to be febrile here and mildly tachycardic. Labs reviewed, no leukocytosis but neutrophil is 92.2%. Lactic acid normal at 1.2. Glucose 110. Troponin negative. CXR negative. CT brain negative. Influenza negative. Pt given ibuprofen, NS IVF and acetaminophen. UA showed trace leukocyte. WBC only 1. Moderate calcium oxalate crystal. Culture not indicated. Will admit for TIA work up. Discussed with Dr. Gutierrez and accepted to Dr. Fenton's service. Pt's nurse ask if I can order pt's carbamazepine 300mg which I did. Data Data Last Documented VS Vital Signs Date Time Temp Pulse Resp B/P (MAP) Pulse Ox O2 Delivery O2 Flow Rate FiO2 08/07/17 01:00 98.5 78 20 98/56 (70) 96 Room Air Orders Orders Electrocardiogram (08/06/17 21:21) Complete Blood Count With Diff (08/06/17 21:21) Comprehensive Metabolic Panel (08/06/17 21:21) Prothrombin Time / Inr (Pt) (08/06/17 21:21) Act Partial Throm Time (Ptt) (08/06/17 21:21) Lactic Acid Sepsis Protocol (08/06/17 21:21) Magnesium (Mg) (08/06/17 21:21) Lipase (08/06/17 21:21) Ckmb (Isoenzyme) Profile (08/06/17 21:21) Troponin I (08/06/17 21:21) Urinalysis - C+S If Indicated (08/06/17 21:21) Influenzae A/B Antigen (08/06/17 21:21) Blood Culture (08/06/17 21:21) Chest, Single Ap (08/06/17 21:21) Ct Brain W/O Iv Contrast(Rout) (08/06/17 21:21) Ibuprofen (Motrin) (08/06/17 21:30) Cath For Specimen (08/06/17 23:02) Sodium Chlorid 0.9% 500 Ml Inj (Ns 500 M (08/06/17 23:15) Acetaminophen (Tylenol) (08/06/17 23:15) Admit Order (Ed Use Only) (08/07/17 01:57) Sodium Chlorid 0.9% 500 Ml Inj (Ns 500 M (08/07/17 02:00) Labs Laboratory Tests Test 08/06/17 21:45 08/07/17 00:20 White Blood Count 8.3 TH/MM3 Red Blood Count 3.99 MIL/MM3 Hemoglobin 12.6 GM/DL Hematocrit 37.2 % Mean Corpuscular Volume 93.1 FL Mean Corpuscular Hemoglobin 31.5 PG Mean Corpuscular Hemoglobin Concent 33.8 % Red Cell Distribution Width 14.2 % Platelet Count 320 TH/MM3 Mean Platelet Volume 7.3 FL Neutrophils (%) (Auto) 92.2 % Lymphocytes (%) (Auto) 2.1 % Monocytes (%) (Auto) 5.1 % Eosinophils (%) (Auto) 0.4 % Basophils (%) (Auto) 0.2 % Neutrophils # (Auto) 7.6 TH/MM3 Lymphocytes # (Auto) 0.2 TH/MM3 Monocytes # (Auto) 0.4 TH/MM3 Eosinophils # (Auto) 0.0 TH/MM3 Basophils # (Auto) 0.0 TH/MM3 CBC Comment DIFF FINAL Differential Comment Prothrombin Time 10.3 SEC Prothromb Time International Ratio 1.0 RATIO Activated Partial Thromboplast Time 29.3 SEC Blood Urea Nitrogen 16 MG/DL Creatinine 0.74 MG/DL Random Glucose 110 MG/DL Total Protein 6.3 GM/DL Albumin 3.2 GM/DL Calcium Level 8.3 MG/DL Magnesium Level 1.9 MG/DL Alkaline Phosphatase 84 U/L Aspartate Amino Transf (AST/SGOT) 13 U/L Alanine Aminotransferase (ALT/SGPT) 16 U/L Total Bilirubin 0.3 MG/DL Sodium Level 137 MEQ/L Potassium Level 3.8 MEQ/L Chloride Level 103 MEQ/L Carbon Dioxide Level 26.6 MEQ/L Anion Gap 7 MEQ/L Estimat Glomerular Filtration Rate 77 ML/MIN Lactic Acid Level 1.2 mmol/L Total Creatine Kinase 81 U/L Troponin I LESS THAN 0.02 NG/ML Lipase 89 U/L Urine Color YELLOW Urine Turbidity HAZY Urine pH 6.0 Urine Specific [place] 1.026 Urine Protein 30 mg/dL Urine Glucose (UA) NEG mg/dL Urine Ketones NEG mg/dL Urine Occult Blood NEG Urine Nitrite NEG Urine Bilirubin NEG Urine Urobilinogen LESS THAN 2.0 MG/DL Urine Leukocyte Esterase TRACE Urine WBC 1 /hpf Urine Calcium Oxalate Crystals MOD /hpf Urine Mucus FEW /lpf Microscopic Urinalysis Comment CATH-CULT NOT IND MDM Supervised Visit with MO: Yes Diagnosis Primary Impression: TIA (transient ischemic attack) Qualified Codes: G45.9 - Transient cerebral ischemic attack, unspecified Admitting Information Admitting Physician Requests: Observation Melinda Sanches DO Aug 06, 2017 23:28
[2017-08-07] VITALS (12 sets, daily range): BP systolic 86–147; BP diastolic 51–70; PULSE 68–83; RESP 15–20; TEMP 97.7–99.1; O2SAT 18–98
[2017-08-07 01:44] LABS: BILIRUBIN, URINE NEG (NEG); BLOOD, URINE NEG (NEG); CALCIUM OXALATE CRYSTALS,URINE MOD /hpf; GLUCOSE,URINE NEG (NEG); KETONE, URINE NEG (NEG); MUCUS URINE FEW /lpf (OCC); NITRITE,URINE NEG (NEG); URINE COLOR YELLOW (YELLW/STRAW); URINE LEUKOCYTE ESTERASE TRACE (NEG)
[2017-08-07] MEDS ORDERED: SODIUM CHLORID 0.9% 500 ML INJ 500 ML IV ONE (02:00)
[2017-08-07] MEDS ORDERED: carBAMazepine 200 MG TAB PO ONE (03:15)
[2017-08-07] MEDS ORDERED: NS + KCL 20 MEQ INJ 1,000 ML IV SCH (05:00)
--- NOTE | 2017-08-07 08:39 | HHI.HP ---
HPI Service [facility] Primary Care Physician Wilner De La O MD Admission Diagnosis TIA Chief Complaint: AMS Travel History International Travel<30 Days: No Contact w/Intl Traveler <30 Da: No Traveled to Known Affected Are: No History of Present Illness This is a 77-year-old female with a history of hypertension, hyperlipidemia, trigeminal neuralgia, recent TIA. Patient's May 2017 then 4 days later she had her first TIA. In June she had her second TIA and was hospitalized from 06/15/17 - 06/30/17. Patient presented with very similar symptoms in June was dx with TIA and cough/bronchitis treated with Levaquin, duonebs and Mucinex. Patient again presents to the ER due to evaluation of altered mental status. Patient's son reported to the ER provider that his mom had been wondering around the house and couldn't find the bathroom. There was also some difficult with word finding. Last night in the ER patient was confused as far as where she is, what year it is and how old she she is. Son reports that the mother has been sleeping more lately and still reports being tired despite increased sleep. T max here in the hospital 102.6. Patient is not aware of any fevers at home prior to coming to the hospital. Patient denies N/V, dysuria, SOB or chest pain. Patient was diagnosed 2 weeks ago with an upper respiratory infection. Patient reports lingering occasional nonproductive cough. Patient at this time is A&O with no focal neurological deficit noted. Patient asking to go home. Review of Systems Constitutional: DENIES: Fatigue, Fever, Chills Eyes: DENIES: Blurred vision, Diplopia, Vision loss Respiratory: DENIES: Cough, Sputum production, Shortness of breath Cardiovascular: DENIES: Chest pain, Palpitations, Dyspnea on Exertion, Lower Extremity Edema Gastrointestinal: DENIES: Abdominal pain, Constipation, Nausea, Vomiting Neurologic: DENIES: Abnormal gait, Headache, Localized weakness, Speech Problems Psychiatric: COMPLAINS OF: Confusion (confusion has resolved), DENIES: Anxiety , Depression Past Family Social History Past Medical History hypertension,GERD ,TIA,trigeminal neuralgia Past Surgical History tonsillectomy Reported Medications Carbamazepine 200 Mg Tab 200 Mg PO DAILY@1400 Carbamazepine 200 Mg Tab 300 Mg PO BID Ipratropium Neb (Ipratropium [place]) 0.5 Mg/2.5 Ml Amp 0.5 Mg NEB Q4HR NEB PRN Albuterol Neb (Albuterol Sulfate) 2.5 Mg/3 Ml Neb 2.5 Mg NEB Q4HR NEB PRN Nebulizer/Adult Mask (N/A) 1 Kit Kit Kit .ROUTE DIRECTED [guaiFENesin ER] 600 MG Tabcr 600 Mg PO BID Eliquis (Apixaban) 5 Mg Tab 5 Mg PO BID Topamax (Topiramate) 25 Mg Tab 25 Mg PO BID Omeprazole 20 Mg Tab 20 Mg PO DAILY Pravastatin 80 Mg Tab 80 Mg PO HS Benazepril (Benazepril HCl) 20 Mg Tab 20 Mg PO BID Allergies: Coded Allergies: No Known Allergies (Verified Allergy, Unknown, 08/06/17) Active Ordered Medications Current Medications Medications (Trade) Dose Ordered Sig/Tolu Route Start Time Stop Time Status Last Admin Potassium Chloride/Sodium Chloride 1,000 ml @ 84 mls/hr [id number] IV 08/07/17 05:00 08/07/17 16:54 08/07/17 06:00 Family History Reviewed and noncontributory Social History in May Denies EtOH use tobacco use or illicit drug use Physical Exam Vital Signs Vital Signs Date Time Temp Pulse Resp B/P (MAP) Pulse Ox O2 Delivery O2 Flow Rate FiO2 08/07/17 06:20 08/07/17 05:45 76 15 110/57 (74) 97 Room Air 08/07/17 04:47 69 18 106/56 (73) 96 Room Air 08/07/17 04:42 71 17 107/60 (76) 96 Room Air 08/07/17 04:00 72 16 86/51 (63) 97 Room Air 08/07/17 03:00 72 18 92/53 (66) 96 Room Air 08/07/17 01:00 98.5 78 20 98/56 (70) 96 Room Air 08/07/17 00:15 99.1 80 18 96 Room Air 08/06/17 22:47 101.5 95 18 104/59 (74) 95 Room Air 08/06/17 21:32 102.6 91 16 109/66 (80) 98 Room Air 08/06/17 20:49 (103) 08/06/17 20:43 100.5 100 16 149/81 (103) 96 Room Air Physical Exam GENERAL: This is a well-nourished, well-developed patient, A&O x 3 SKIN: No rashes, ecchymoses or lesions. Cool and dry. HEAD: Atraumatic. Normocephalic. No temporal or scalp tenderness. EYES: Extraocular motions intact. No scleral icterus. No injection or drainage. CARDIOVASCULAR: Regular rate and rhythm RESPIRATORY: Clear to auscultation. Breath sounds equal bilaterally. GASTROINTESTINAL: Abdomen soft, non-tender, nondistended. MUSCULOSKELETAL: Extremities without clubbing, cyanosis, or edema. No joint tenderness, effusion, or edema noted. No calf tenderness. Negative Homans sign bilaterally. NEUROLOGICAL: Awake and alert. No focal deficits noted. Motor and sensory grossly within normal limits. Five out of 5 muscle strength in all muscle groups. Normal speech. Laboratory Laboratory Tests Test 08/06/17 21:45 08/07/17 00:20 White Blood Count 8.3 Red Blood Count 3.99 Hemoglobin 12.6 Hematocrit 37.2 Mean Corpuscular Volume 93.1 Mean Corpuscular Hemoglobin 31.5 Mean Corpuscular Hemoglobin Concent 33.8 Red Cell Distribution Width 14.2 Platelet Count 320 Mean Platelet Volume 7.3 Neutrophils (%) (Auto) 92.2 Lymphocytes (%) (Auto) 2.1 Monocytes (%) (Auto) 5.1 Eosinophils (%) (Auto) 0.4 Basophils (%) (Auto) 0.2 Neutrophils # (Auto) 7.6 Lymphocytes # (Auto) 0.2 Monocytes # (Auto) 0.4 Eosinophils # (Auto) 0.0 Basophils # (Auto) 0.0 CBC Comment DIFF FINAL Differential Comment Prothrombin Time 10.3 Prothromb Time International Ratio 1.0 Activated Partial Thromboplast Time 29.3 Blood Urea Nitrogen 16 Creatinine 0.74 Random Glucose 110 Total Protein 6.3 Albumin 3.2 Calcium Level 8.3 Magnesium Level 1.9 Alkaline Phosphatase 84 Aspartate Amino Transf (AST/SGOT) 13 Alanine Aminotransferase (ALT/SGPT) 16 Total Bilirubin 0.3 Sodium Level 137 Potassium Level 3.8 Chloride Level 103 Carbon Dioxide Level 26.6 Anion Gap 7 Estimat Glomerular Filtration Rate 77 Lactic Acid Level 1.2 Total Creatine Kinase 81 Troponin I LESS THAN 0.02 C-Reactive Protein 3.05 Lipase 89 Urine Color YELLOW Urine Turbidity HAZY Urine pH 6.0 Urine Specific [place] 1.026 Urine Protein 30 Urine Glucose (UA) NEG Urine Ketones NEG Urine Occult Blood NEG Urine Nitrite NEG Urine Bilirubin NEG Urine Urobilinogen LESS THAN 2.0 Urine Leukocyte Esterase TRACE Urine WBC 1 Urine Calcium Oxalate Crystals MOD Urine Mucus FEW Microscopic Urinalysis Comment CATH-CULT NOT IND Date/Time Source Procedure Growth Status 08/06/17 21:40 Blood Peripheral Aerobic Blood Culture Pending Received 08/06/17 21:40 Blood Peripheral Anaerobic Blood Culture Pending Received 08/06/17 21:53 Nasal Washing Influenza Types A,B Antigen (MICHAEL) - Final NEGATIVE FOR FLU A AND B ANTIGEN.... Complete Result Diagram: [id number]/06/[id number] Imaging Last Impressions Head CT 08/06/172120 Signed Impressions: Service Date/Time: Sunday, August 06, 2017 22:26 - CONCLUSION: No acute intracranial findings. Yuri Fernandez MD Chest X-Ray 08/06/172120 Signed Impressions: Service Date/Time: Sunday, August 06, 2017 21:49 - CONCLUSION: No acute cardiopulmonary disease identified. Yuri Fernandez MD Caprini VTE Risk Assessment Caprini VTE Risk Assessment: Mod/High Risk (score >= 2) Caprini Risk Assessment Model Point Value = 1 Point Value = 2 Point Value = 3 Point Value = 5 Age 41-60 Minor surgery BMI > 25 kg/m2 Swollen legs Varicose veins or History of unexplained or recurrent spontaneous Oral contraceptives or hormone replacement Sepsis (< 1 month) Serious lung disease, including pneumonia (< 1 month) Abnormal pulmonary function Acute myocardial infarction Congestive heart failure (< 1 month) History of inflammatory bowel disease Medical patient at bed rest Age 61-74 Arthroscopic surgery Major open surgery (> 45 min) Laparoscopic surgery (> 45 min) Malignancy Confined to bed (> 72 hours) Immobilizing plaster cast Central venous access Age >= 75 History of VTE Family history of VTE Factor V Leiden Prothrombin [id number] Lupus anticoagulant Anticardiolipin antibodies Elevated serum homocysteine Heparin-induced thrombocytopenia Other congenital or acquired thrombophilia Stroke (< 1 month) Elective arthroplasty Hip, pelvis, or leg fracture Acute spinal cord injury (< 1 month) Prophylaxis Regimen Total Risk Factor Score Risk Level Prophylaxis Regimen 0-1 Low Early ambulation 2 Moderate Order ONE of the following: *Sequential Compression Device (SCD) *Heparin 5000 units SQ BID 3-4 Higher Order ONE of the following medications: *Heparin 5000 units SQ TID *Enoxaparin/Lovenox 40 mg SQ daily (WT < 150 kg, CrCl > 30 mL/min) *Enoxaparin/Lovenox 30 mg SQ daily (WT < 150 kg, CrCl > 10-29 mL/min) *Enoxaparin/Lovenox 30 mg SQ BID (WT < 150 kg, CrCl > 30 mL/min) AND/OR *Sequential Compression Device (SCD) 5 or more Highest Order ONE of the following medications: *Heparin 5000 units SQ TID (Preferred with Epidurals) *Enoxaparin/Lovenox 40 mg SQ daily (WT < 150 kg, CrCl > 30 mL/min) *Enoxaparin/Lovenox 30 mg SQ daily (WT < 150 kg, CrCl > 10-29 mL/min) *Enoxaparin/Lovenox 30 mg SQ BID (WT < 150 kg, CrCl > 30 mL/min) AND *Sequential Compression Device (SCD) Assessment and Plan Problem List: (1) Fever ICD Codes: R50.9 - Fever, unspecified Plan: Possibly viral -MAXIMUM TEMPERATURE 102.6 -Blood cultures no growth x 1 day -Urinalysis reviewed and reveals positive protein negative nitrates trace leukocyte esterase culture not indicated -Chest x-ray reviewed and reveals no acute cardiopulmonary disease -White blood cell count 8.3 with neutrophil percent 92.2 and C-reactive protein 3.05 -Patient asking to go home also son who is present at bedside agrees that patient will have family with her. - discussed options with patient and family present. Dr. Becker agreed to DC patient home with supervision Patient to F/U with PCP in 1 week Will start a low dose of Lexapro 5 mg PO daily for anxiety, will hold benazepril due to hypotension. Patient to keep BP log. (2) TIA (transient ischemic attack) ICD Codes: G45.9 - Transient cerebral ischemic attack, unspecified Status: Acute Plan: -AMS possibly related to fever - Possible TIA started on Eliquis from prior admits and had full neuro work up with negative MRI brain ,MRA brain MRA carotids - Patient also reports that her Neurologist Dr. Hernandez increased her Topamax on 06/24/17 to 2 tablets daily and increased Carbamazepine 200 mg 1.5 tablets AM, 1 tablet afternoon and 1.5 tablets at night - No evidence of CVA on imaging and ?tia questioned. Stress/depression could be playing a role with recent loss of . - MRI Brain (06/28/17) --> No acute intracranial abnormality is identified. There are no findings to indicate recent ischemia. Stable chronic white matter changes are present. Air-fluid level in left maxillary antrum. - MRA Head (06/28/17) --> 3 mm outpouching of the supraclinoid carotid on the right. - Carotid US (06/28/17) --> Minimal plaque without significant stenosis. - 2D echocardiogram (06/29/17) - Estimated EF 50-55% - Mild aortic dilatation at the level of the sinuses of Valsalva - Mild mitral annular calcification - Mild tricuspid valve regurg - Estimated mild pulmonary HTN (40mmHg) - EEG (06/29/17) --> negative for any seizure activity - Telemetry readings on 06/29 with runs of Atrial tachycardia vs. A. fib. With the pts possible TIA symptoms and questionable A. fib on telemetry, ASA and Plavix stopped in June and started Eliquis 5mg po BID. - Holter monitor --> pending cardiology reading. Pt will need to followup with Cardiology regarding results. - US of the aorta (06/29/17) to r/o aortic aneurysm. This examination was negative for aneurysmal dilation -CT head (08/06/17) no acute intracranial findings (3) Trigeminal neuralgia ICD Codes: G50.0 - Trigeminal neuralgia Status: Chronic Plan: - Patient Neurologist, Dr. Hernandez, increased Topamax to 2 tablets daily and increased Carbamazepine 200 mg 1.5 tablets AM, 1 tablet afternoon and 2 tablets at night (4) Hypertension ICD Codes: I10 - Hypertension Status: Acute Plan: Blood pressure has been low during this admission will hold patient's home benazepril 20 mg by mouth twice a day and monitor blood pressure trend Assessment and Plan Patient examined. Assessment and plan formulated with Edith Krueger PA-C. I agree with the above. Problem Qualifiers (1) TIA (transient ischemic attack): Qualified Codes: G45.9 - Transient cerebral ischemic attack, unspecified Edith Krueger Aug 07, 2017 08:39 Chaka Fenton DO Aug 09, 2017 23:51
[2017-08-07] MEDS ORDERED: CARB200T PO ×2 (08:47)
[2017-08-07] MEDS ORDERED: carBAMazepine 200 MG TAB PO SCH ×3 (09:00→21:00)
[2017-08-07] MEDS ORDERED: APIXABAN 5 MG TABLET PO SCH (09:00)
[2017-08-07] MEDS ORDERED: TOPIRAMATE 25 MG TAB PO SCH (09:00)
[2017-08-07] MEDS ORDERED: PILL SPLITTER OTHER PRN (09:00)
[2017-08-07] MEDS ORDERED: PANTOPRAZOLE SOD 20 MG DELAYED RELEASE TAB PO SCH (09:00)
[2017-08-07] MEDS ORDERED: LEXA5TAB PO (15:26)
[2017-08-07] MEDS ORDERED: PRAVASTATIN SOD 80 MG TAB PO SCH (21:00)
--- NOTE | 2017-08-07 21:44 | EKG ---
Date Performed: 08/06/2017 Time Performed: 21:34:06 PTAGE: 77 years EKG: Sinus rhythm POSSIBLE LEFT ATRIAL ENLARGEMENT POSSIBLE RIGHT VENTRICULAR CONDUCTION DELAY NONSPECIFIC ST-T CHANGE S ABNORMAL ECG PREVIOUS TRACING : 06/27/2017 21.43 Compared to prior tracing no significant change DOCTOR: Jeffy Verma Interpretating Date/Time 08/07/2017 21:43:24
[2017-08-08] MEDS ORDERED: PNEUMOCOCCAL POLYVALENT INJ 25 MCG/0.5 ML SYR IM ONE (10:00)
== END 2017-08-07 21:03 | disposition home or self-care (01) ==
LOC: NEPC 20:39 → NEDA 08-07 01:59 → NEPGCP 08-07 06:31
PROVIDERS: ADMIT Hospitalist; ATTEND Hospitalist
DX: G45.9 Transient cerebral ischemic attack, unspecified (principal); G50.0 Trigeminal neuralgia; I10 Essential (primary) hypertension; E78.5 Hyperlipidemia, unspecified; I48.91 Unspecified atrial fibrillation; I07.1 Rheumatic tricuspid insufficiency; I77.819 Aortic ectasia, unspecified site; H91.90 Unspecified hearing loss, unspecified ear; F32.9 Major depressive disorder, single episode, unspecified; K21.9 Gastro-esophageal reflux disease without esophagitis; Z79.899 Other long term (current) drug therapy; Z86.73 Personal history of transient ischemic attack (TIA), and cerebral infarction without residual deficits; Z97.4 Presence of external hearing-aid
CPT/HCPCS: 70450; 71010; 80053; 81001; 82550; 83605; 83690; 83735; 84484; 85025; 85610; 85730; 86140; 87040; 87804; 93005; 96360; 96361; 99285; G0378; J3480; J7040; P9612

== ENCOUNTER 2018-07-10 20:19 | Observation (INO) ==
[2018-07-10] MEDS ORDERED: Sod Chloride 0.9% Inj 1,000 ML IV.CONT SCH (20:30)
--- NOTE | 2018-07-10 20:36 | ED ---
HPI General Chief Complaint: Neuro Symptoms/Deficit Stated Complaint: Neuro Time Seen by Provider: 07/10/18 20:27 Source: patient and EMS Mode of arrival: EMS Limitations: no limitations History of Present Illness HPI Narrative: The patient is a 78-year-old female that was brought in by EMS for possible stroke not as a stroke alert. Last time the patient was seen normal was around 4 PM. Family has been trying to call her since then but she was not answering. They got a hold of her around 1915 and while they were talking to her she appeared confused. Therefore there called 911. Patient had 3 TIAs last year with similar symptoms. Son arrived at 2100 and informed us that the patient does have A-fib and that is why she is on Eliquis Onset (ago): hour(s) (4.5) Last Observed Normal: 16:00 Timing confirmed by: family member Location: Reports altered History of same: Yes Severity: similar to previous episodes Quality: Reports other (cunfusion) Relieving factors: time Context: Reports sudden onset On Anticoagulants: Yes (eliquis from previous TIAs) Associated symptoms: Reports denies other symptoms Treatments Prior to Arrival: Reports none Related Data Home Medications Medication Instructions Recorded Confirmed apixaban [Eliquis] 5 mg PO DAILY 07/10/18 07/10/18 benazepril 20 mg PO DAILY 07/10/18 07/10/18 escitalopram oxalate 5 mg PO DAILY 07/10/18 07/10/18 oxcarbazepine 300 mg PO BID 07/10/18 07/10/18 pantoprazole 20 mg PO DAILY 07/10/18 07/10/18 pravastatin 80 mg PO DAILY 07/10/18 07/10/18 topiramate 25 mg PO DAILY 07/10/18 07/10/18 Allergies Allergy/AdvReac Type Severity Reaction Status Date / Time No Known Allergies Allergy Verified 07/10/18 20:22 Review of Systems ROS: all other systems reviewed are negative PMFSH History History Provided By: 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 Well-nourished well -developed. SKIN: Focused skin assessment warm/dry. HEAD: Atraumatic. Normocephalic. EYES: Pupils equal and round. No scleral icterus. No injection or drainage. ENT: No nasal bleeding or discharge. Mucous membranes pink and moist. NECK: Trachea midline. No JVD. CARDIOVASCULAR: tachycardia with Irregularly irregular rhythm. No murmur appreciated. RESPIRATORY: No accessory muscle use. Clear to auscultation. Breath sounds equal bilaterally. GASTROINTESTINAL: Abdomen soft, non-tender, nondistended. Hepatic and splenic margins not palpable. MUSCULOSKELETAL: No obvious deformities. No clubbing. No cyanosis. No edema. PSYCHIATRIC: Appropriate mood and affect; insight and judgment normal. Neuro General: alert, awake, oriented x3, tone normal, moves all extremities, normal light touch, pain and propioception, no meningeal signs, no focal motor deficits , CN's II-XI intact bilaterally and deep tendon reflexes 2+ bilaterally Cranial Nerves: PERRL, accommodation normal, EOM intact bilaterally and no nystagmus Cognition: normal cognition Speech: speech normal Sensory Exam: no sensory deficits noted DTR's: Rt Brachioradialis: 2+, Lt Brachioradialis: 2+, Rt Patellar: 2+ and Lt Patellar: 2+ Plantar Reflexes: Downgoing: bilateral Coordination: [id number] test normal and [id number]-[id number] test normal Course Hospital Course: Patient with possible neurologic deficit that had resolved at the time of arrival in the emergency department. Stroke alert was initiated. The patient is not a TPA candidate due to being on anticoagulants. Neurology was consulted. CT scans were obtained. Reevaluation(s) Reevaluation #1: Unchanged examination no focal neurologic deficit patient is at baseline hemodynamically stable. Time: 21:06 Reevaluation #2: Patient is resting comfortably no distress hemodynamically stable. Time: 00:15 Consultations Consultation #1: Dr Jensen neurology on-call was consulted. Agrees with our assessment the patient is not a TPa candidate due to being on Eliquis. Time: 20:32 Initial Documented Vital Signs Pulse Rate 109 H 07/10/18 20:22 Respiratory Rate 20 07/10/18 20:22 Blood Pressure 149/71 H 07/10/18 20:22 Pulse Oximetry 94 L 07/10/18 20:22 Last Documented Vital Signs Pulse Rate 79 07/11/18 04:29 Respiratory Rate 17 07/11/18 04:29 Blood Pressure 133/74 07/11/18 04:29 Pulse Oximetry 97 07/11/18 04:29 NIH Stroke Scale NIHSS Time Completed NIHSS Time Completed: 20:25 NIH Stroke Scale Level of Consciousness: 0-Alert Orientation Questions: 0-Answers both correct Responds to Commands: 0-Both tasks correct Gaze Eye Movement: 0-Horizontal movement WNL Visual Rodriguez: 0-No visual field defect Facial Movement: 0-Normal Motor Functions Arm LEFT: 0-No drift Motor Functions Arm RIGHT: 0-No drift Motor Functions Leg LEFT: 0-No drift Motor Functions Leg RIGHT: 0-No drift Limb Ataxia: 0-No ataxia Best Language: 0-Normal Articulation: 0-Normal Extinction or Inattention Sensory: 0-Absent Total: 0 Medical Decision Making MDM Narrative Medical decision making narrative: Stroke alert was initiated on arrival based on symptoms and onset. She is not a TPA candidate due to being on Eliquis. CT head CTA head and CT angiogram neck were negative for acute intracranial pathology or thrombosis. Patient does have a white count without fever and a urine that is suggestive of urinary tract infection that may have contributed to her altered mental status. Fluids were initiated in the ED she is hemodynamically stable was started on Rocephin no focal neurologic deficits. Medical Screen Exam Complete: Yes Emergency Medical Condition: Yes Lab Data Result diagrams: 07/11/18 03:57 07/10/18 20:25 Lab Results 07/10/18 07/10/18 07/10/18 Range/Units 20:25 20:25 20:25 WBC 14.1 H (4.0-11.0) th/mm3 RBC 3.95 L (4.00-5.30) mil/mm3 Hgb 11.7 (11.6-15.3) gm/dL POC Hgb (Calc) 11.9 (11.6-15.3) g/dL Hct 34.9 L (35.0-46.0) % POC Hct 35.0 (35-46.0) % MCV 88.3 (80.0-100.0) fL MCH 29.6 (27.0-34.0) pg MCHC 33.5 (32.0-36.0) % RDW 14.4 (11.6-17.2) % Plt Count 220 (150-450) th/mm3 MPV 7.8 (7.0-11.0) fL Neut % (Auto) 88.9 H (16.0-70.0) % Lymph % (Auto) 3.0 L (9.0-44.0) % Falls % (Auto) 7.7 (0.0-8.0) % Eos % (Auto) 0.1 (0.0-4.0) % Baso % (Auto) 0.3 (0.0-2.0) % Neut # (Auto) 12.6 H (1.8-7.7) th/mm3 Lymph # (Auto) 0.4 L (1.0-4.8) th/mm3 Falls # (Auto) 1.1 H (0.0-0.9) th/mm3 Eos # (Auto) 0.0 (0.0-0.4) th/mm3 Baso # (Auto) 0.0 (0.0-0.2) th/mm3 WBC Differential . Differential Comment Auto diff final PT 10.2 (9.8-11.6) sec INR 1.0 Ratio APTT 28.7 (23.4-31.7) sec POC Sodium 139 (137-144) mmol/L Sodium 140 (136-145) meq/L POC Potassium 3.8 (3.6-5.0) mmol/L Potassium 3.8 (3.5-5.1) meq/L POC Chloride 100 L (102-111) mmol/L Chloride 105 (98-107) meq/L Carbon Dioxide 29.9 (21.0-32.0) meq/L Anion Gap 5 (5-15) meq/L POC BUN 12 (5-21) mg/dL BUN 13 (7-18) mg/dL Creatinine 0.88 (0.50-1.00) mg/dL POC Creatinine 0.8 (0.6-1.3) mg/dL Estimated GFR 62 L (>89) mL/min POC Glucose 101 (68-110) mg/dL Random Glucose 100 (74-106) mg/dL Calcium 8.6 (8.5-10.1) mg/dL Total Creatine Kinase 213 H (26-192) U/L CK-MB (CK-2) 2.3 (0.5-3.6) ng/mL CK-MB (CK-2) % 1.1 (0.0-4.0) % Troponin I Less than 0.02 L (0.02-0.05) ng/mL Triglycerides (42-150) mg/dL Cholesterol (120-200) mg/dL LDL Cholesterol, Calc (0-99) mg/dL HDL Cholesterol (40.0-60.0) mg/dL Cholesterol/HDL Ratio Ratio Urine Color (Yellw/Straw) Urine Clarity (Clear) Urine pH (5.0-8.5) Ur Specific [place] (1.002-1.035) Urine Protein (Neg-Trace) mg/dL Urine Glucose (UA) (Negative) mg/dL Urine Ketones (Negative) mg/dL Urine Occult Blood (Negative) Urine Nitrate (Negative) Urine Bilirubin (Negative) Urine Urobilinogen (Less than 2) mg/dL Ur Leukocyte Esterase (Negative) Urine RBC (0-3) /hpf Urine WBC (0-5) /hpf Ur Squamous Epith Cells (0-5) /hpf Urine Bacteria (None) /hpf Urine Mucus (Occasional) /lpf Micro UA Comment Ur Microscopic Review Urine Culture Comments 07/10/18 07/10/18 07/11/18 Range/Units 20:25 23:31 03:57 WBC 9.4 (4.0-11.0) th/mm3 RBC 3.68 L (4.00-5.30) mil/mm3 Hgb 11.2 L (11.6-15.3) gm/dL POC Hgb (Calc) (11.6-15.3) g/dL Hct 32.8 L (35.0-46.0) % POC Hct (35-46.0) % MCV 89.1 (80.0-100.0) fL MCH 30.3 (27.0-34.0) pg MCHC 34.0 (32.0-36.0) % RDW 14.6 (11.6-17.2) % Plt Count 186 (150-450) th/mm3 MPV 7.9 (7.0-11.0) fL Neut % (Auto) 83.8 H (16.0-70.0) % Lymph % (Auto) 9.3 (9.0-44.0) % Falls % (Auto) 6.3 (0.0-8.0) % Eos % (Auto) 0.3 (0.0-4.0) % Baso % (Auto) 0.3 (0.0-2.0) % Neut # (Auto) 7.9 H (1.8-7.7) th/mm3 Lymph # (Auto) 0.9 L (1.0-4.8) th/mm3 Falls # (Auto) 0.6 (0.0-0.9) th/mm3 Eos # (Auto) 0.0 (0.0-0.4) th/mm3 Baso # (Auto) 0.0 (0.0-0.2) th/mm3 WBC Differential . Differential Comment Auto diff final PT (9.8-11.6) sec INR Ratio APTT (23.4-31.7) sec POC Sodium (137-144) mmol/L Sodium (136-145) meq/L POC Potassium (3.6-5.0) mmol/L Potassium (3.5-5.1) meq/L POC Chloride (102-111) mmol/L Chloride (98-107) meq/L Carbon Dioxide (21.0-32.0) meq/L Anion Gap (5-15) meq/L POC BUN (5-21) mg/dL BUN (7-18) mg/dL Creatinine (0.50-1.00) mg/dL POC Creatinine (0.6-1.3) mg/dL Estimated GFR (>89) mL/min POC Glucose 101 (68-110) mg/dL Random Glucose (74-106) mg/dL Calcium (8.5-10.1) mg/dL Total Creatine Kinase (26-192) U/L CK-MB (CK-2) (0.5-3.6) ng/mL CK-MB (CK-2) % (0.0-4.0) % Troponin I (0.02-0.05) ng/mL Triglycerides (42-150) mg/dL Cholesterol (120-200) mg/dL LDL Cholesterol, Calc (0-99) mg/dL HDL Cholesterol (40.0-60.0) mg/dL Cholesterol/HDL Ratio Ratio Urine Color Yellow (Yellw/Straw) Urine Clarity Hazy H (Clear) Urine pH 7.0 (5.0-8.5) Ur Specific [place] 1.044 H (1.002-1.035) Urine Protein Negative (Neg-Trace) mg/dL Urine Glucose (UA) Negative (Negative) mg/dL Urine Ketones Trace H (Negative) mg/dL Urine Occult Blood Negative (Negative) Urine Nitrate Negative (Negative) Urine Bilirubin Negative (Negative) Urine Urobilinogen Less than 2 (Less than 2) mg/dL Ur Leukocyte Esterase Moderate H (Negative) Urine RBC 1 (0-3) /hpf Urine WBC 5 (0-5) /hpf Ur Squamous Epith Cells 1 (0-5) /hpf Urine Bacteria Occasional H (None) /hpf Urine Mucus Few H (Occasional) /lpf Micro UA Comment Culture not ind Ur Microscopic Review Not Reportable Urine Culture Comments Culture not ind 07/11/18 Range/Units 03:57 WBC (4.0-11.0) th/mm3 RBC (4.00-5.30) mil/mm3 Hgb (11.6-15.3) gm/dL POC Hgb (Calc) (11.6-15.3) g/dL Hct (35.0-46.0) % POC Hct (35-46.0) % MCV (80.0-100.0) fL MCH (27.0-34.0) pg MCHC (32.0-36.0) % RDW (11.6-17.2) % Plt Count (150-450) th/mm3 MPV (7.0-11.0) fL Neut % (Auto) (16.0-70.0) % Lymph % (Auto) (9.0-44.0) % Falls % (Auto) (0.0-8.0) % Eos % (Auto) (0.0-4.0) % Baso % (Auto) (0.0-2.0) % Neut # (Auto) (1.8-7.7) th/mm3 Lymph # (Auto) (1.0-4.8) th/mm3 Falls # (Auto) (0.0-0.9) th/mm3 Eos # (Auto) (0.0-0.4) th/mm3 Baso # (Auto) (0.0-0.2) th/mm3 WBC Differential Differential Comment PT (9.8-11.6) sec INR Ratio APTT (23.4-31.7) sec POC Sodium (137-144) mmol/L Sodium (136-145) meq/L POC Potassium (3.6-5.0) mmol/L Potassium (3.5-5.1) meq/L POC Chloride (102-111) mmol/L Chloride (98-107) meq/L Carbon Dioxide (21.0-32.0) meq/L Anion Gap (5-15) meq/L POC BUN (5-21) mg/dL BUN (7-18) mg/dL Creatinine (0.50-1.00) mg/dL POC Creatinine (0.6-1.3) mg/dL Estimated GFR (>89) mL/min POC Glucose (68-110) mg/dL Random Glucose (74-106) mg/dL Calcium (8.5-10.1) mg/dL Total Creatine Kinase (26-192) U/L CK-MB (CK-2) (0.5-3.6) ng/mL CK-MB (CK-2) % (0.0-4.0) % Troponin I (0.02-0.05) ng/mL Triglycerides 52 (42-150) mg/dL Cholesterol 174 (120-200) mg/dL LDL Cholesterol, Calc 77 (0-99) mg/dL HDL Cholesterol 86.3 H (40.0-60.0) mg/dL Cholesterol/HDL Ratio 2.01 Ratio Urine Color (Yellw/Straw) Urine Clarity (Clear) Urine pH (5.0-8.5) Ur Specific [place] (1.002-1.035) Urine Protein (Neg-Trace) mg/dL Urine Glucose (UA) (Negative) mg/dL Urine Ketones (Negative) mg/dL Urine Occult Blood (Negative) Urine Nitrate (Negative) Urine Bilirubin (Negative) Urine Urobilinogen (Less than 2) mg/dL Ur Leukocyte Esterase (Negative) Urine RBC (0-3) /hpf Urine WBC (0-5) /hpf Ur Squamous Epith Cells (0-5) /hpf Urine Bacteria (None) /hpf Urine Mucus (Occasional) /lpf Micro UA Comment Ur Microscopic Review Urine Culture Comments Imaging Data Radiologist's impression: Chest X-Ray 07/10/18 20:27 CONCLUSION: . Mild complicated cardiomegaly otherwise negative Head CT 07/10/18 20:27 CONCLUSION: Atrophy, marked periventricular white matter changes, otherwise negative for an acute process. Jez Finch MD FACR Report was called by above Head CTA 07/10/18 20:27 CONCLUSION: 1. Negative for major branch vessel occlusion. Neck CTA 07/10/18 20:27 CONCLUSION: 1. Negative for hemodynamically significant stenosis or source of emboli. ECG Data Attestation: I personally reviewed and interpreted this ECG as follows: Interpretation: Normal sinus rhythm with occasional PVCs. Ventricular rate is 93 bpm NM interval 149 ms. QTc [address]-T wave abnormalities. Left atrial enlargement. Normal axis. No STEMI Discharge Plan Discharge Disposition Patient Disposition: 30 Still Patient Discharge Condition Condition: Stable Discharge Details Diagnosis: Transient cerebral ischemia, Acute UTI Physicians Team ED Provider: Kishore Vora Primary Care Provider: Wilner De La O Attending Provider: Jose A Lopez Other Providers: Willis Diggs Discharge Interventions Interventions: ED Discharge Assessment Last Done: 07/11/18 03:41 Vital Signs Last Done: 07/10/18 23:58 Status ED Status: Admitted Observation Patient
--- NOTE | 2018-07-10 20:53 | CT ---
EXAM DATE: 07/10/2018 8:47 PM EST AGE/SEX: 78 years / Female INDICATIONS: Stroke alert; confusion. CLINICAL DATA: This is the patient's initial encounter. Patient reports that signs and symptoms have been present for 1 day and indicates a pain score of 0/10. MEDICAL/SURGICAL HISTORY: Hypertension. TIA None. RADIATION DOSE: 52.83 CTDI (mGy) COMPARISON: C, CTA HEAD W CONTRAST W 3D, 07/10/2018. . TECHNIQUE: CT of the head without contrast. Using automated exposure control and adjustment of the mA and/or kV according to patient size, radiation dose was kept as low as reasonably achievable to ob tain optimal diagnostic quality images. DICOM format image data is available electronically for revi ew and comparison. FINDINGS: There is central and cortical atrophy with dilatation of ventricular and sulcal spaces. There is no parenchymal hemorrhage, acute infarction or mass lesion identified. Small basal ganglia calcification on the left. There are no extra-axial fluid collections appreciated. Periventricular white matter c hanges are noted. The posterior fossa is unremarkable with midline fourth ventricle. The portion of t he orbits and paranasal sinuses visualized are unremarkable. CONCLUSION: Atrophy, marked periventricular white matter changes, otherwise negative for an acute pr ocess. Jez Finch MD FACR Report was called by above Electronically signed by: Jez Finch MD 07/10/2018 8:52 PM EST
--- NOTE | 2018-07-10 20:57 | CT ---
EXAM DATE: 07/10/2018 8:53 PM EST AGE/SEX: 78 years / Female INDICATIONS: CLINICAL DATA: This is the patient's encounter. Patient reports that signs and symptoms have been pr esent for and indicates a pain score of . MEDICAL/SURGICAL HISTORY: RADIATION DOSE: CTDI (mGy) COMPARISON: No prior exams available for comparison. TECHNIQUE: Volumetric scanning was performed using a multi-row detector CT scanner during bolus infu lily of ml nonionic water-soluble contrast as a . The data was post processed with a variety of vis ualization algorithms including full volume maximum intensity projection, multi-planar sliding thin s lab reformation, curved planar reformation, and surface rendering techniques. Using automated exposu re control and adjustment of the mA and/or kV according to patient size, radiation dose was kept as l ow as reasonably achievable to obtain optimal diagnostic quality images. DICOM format image data is available electronically for review and comparison. FINDINGS: Moderate atherosclerotic cardiovascular disease without major branch vessel occlusion. CONCLUSION: 1. Negative for major branch vessel occlusion. Electronically signed by: Jez Finch MD 07/10/2018 8:55 PM EST
[2018-07-10 21:08] LABS: Baso % (Auto) 0.3 % (0.0-2.0); Eos % (Auto) 0.1 % (0.0-4.0); Hematocrit 34.9 % (35.0-46.0); Hemoglobin 11.7 gm/dL (11.6-15.3); Lymph # (Auto) 0.4 th/mm3 (1.0-4.8); Mean Corpuscular HGB Conc 33.5 % (32.0-36.0); Mean Corpuscular Hemoglobin 29.6 pg (27.0-34.0); Mean Corpuscular Volume 88.3 fL (80.0-100.0); Mean Platelet Volume 7.8 fL (7.0-11.0); Mono # (Auto) 1.1 th/mm3 (0.0-0.9); Mono % (Auto) 7.7 % (0.0-8.0); Neut # (Auto) 12.6 th/mm3 (1.8-7.7); Neut % (Auto) 88.9 % (16.0-70.0); Platelet Count 220 th/mm3 (150-450); Red Blood Count 3.95 mil/mm3 (4.00-5.30); Red Cell Distribution Width 14.4 % (11.6-17.2); White Blood Count 14.1 th/mm3 (4.0-11.0)
--- NOTE | 2018-07-10 21:09 | XR ---
EXAM DATE: 07/10/2018 9:03 PM EST AGE/SEX: 78 years / Female INDICATIONS: Stroke alert. CLINICAL DATA: This is the patient's initial encounter. Patient reports that signs and symptoms have been present for 1 day and indicates a pain score of 0/10. MEDICAL/SURGICAL HISTORY: None. None. COMPARISON: [facility] [place], CHEST SINGLE AP, 08/06/2017. . FINDINGS: A single AP view of the chest demonstrates the lungs to be symmetrically aerated without evidence of mass, infiltrate or effusion. Mild commentated cardiomegaly Osseous structures are intact. CONCLUSION: . Mild complicated cardiomegaly otherwise negative Electronically signed by: Jez Finch MD 07/10/2018 9:07 PM EST
[2018-07-10 21:10] LABS: Activated Partial Thrombo Time 28.7 sec (23.4-31.7); Prothrombin Time 10.2 sec (9.8-11.6)
--- NOTE | 2018-07-10 21:10 | CT ---
EXAM DATE: 07/10/2018 9:05 PM EST AGE/SEX: 78 years / Female INDICATIONS: Stroke alert; confusion. CLINICAL DATA: This is the patient's initial encounter. Patient reports that signs and symptoms have been present for 1 day and indicates a pain score of 0/10. MEDICAL/SURGICAL HISTORY: Hypertension. TIA None. RADIATION DOSE: 9.52 CTDI (mGy) ; Combined studies COMPARISON: [facility], MRA CAROTIDS W CONTRAST, 06/11/2017. . TECHNIQUE: Volumetric scanning was performed using a multirow detector CT scanner during bolus infus ion of 97 ml Visipaque 320 (iodixanol) nonionic water-soluble contrast as a cumulative dose for mult iple exams. The data was postprocessed with a variety of visualization algorithms including full-vo lume maximum intensity projection, multiplanar sliding thin-slab reformation, curved-planar reformati on, and surface-rendering techniques. Using automated exposure control and adjustment of the mA and/ or kV according to patient size, radiation dose was kept as low as reasonably achievable to obtain op timal diagnostic quality images. DICOM format image data is available electronically for review and comparison. FINDINGS: Aortic Arch: There is a three-vessel origin of the great vessels from the aorta. No evidence of ost ial narrowing Right Carotid: The common carotid artery is intact. The carotid bulb has a normal configuration wit hout ulceration or narrowing. The internal carotid artery lumen is smooth without stenosis. The ext ernal carotid artery is intact. Left Carotid: The common carotid artery is intact. The carotid bulb has a normal configuration with out ulceration or narrowing. The internal carotid artery lumen is smooth without stenosis. The exte rnal carotid artery is intact. Vertebrals: The vertebral arteries have a symmetric diameter. No stenotic lesions are seen. Percent stenosis is calculated using the diameter of the stenotic region over the diameter of the nor mal distal internal carotid artery. CONCLUSION: 1. Negative for hemodynamically significant stenosis or source of emboli. Electronically signed by: Jez Finch MD 07/10/2018 9:08 PM EST
[2018-07-10 21:15] LABS: Anion Gap 5 meq/L (5-15); Blood Urea Nitrogen 13 mg/dL (7-18); Calcium 8.6 mg/dL (8.5-10.1); Carbon Dioxide 29.9 meq/L (21.0-32.0); Chloride 105 meq/L (98-107); Glomerular Filtration Rate 62 mL/min (>89); Glucose,Random 100 mg/dL (74-106); Potassium 3.8 meq/L (3.5-5.1); Sodium 140 meq/L (136-145)
[2018-07-10 21:20] LABS: Creatine Kinase 213 U/L (26-192)
[2018-07-10 21:32] LABS: CKMB Percent 1.1 % (0.0-4.0); Creatine Kinase MB 2.3 ng/mL (0.5-3.6)
[2018-07-10] MEDS ORDERED: Acetaminophen 325 MG Tablet PO ONE (22:19)
[2018-07-10 23:53] LABS: Bacteria,Urine Occasional /hpf; Bilirubin,Urine Negative (Negative); Clarity,Urine Hazy (Clear); Color,Urine Yellow (Yellw/Straw); Glucose,Urine (UA) Negative (Negative); Leukocyte Esterase,Urine Moderate (Negative); Mucus,Urine Few /lpf (Occasional); Nitrite,Urine Negative (Negative); Specific Gravity,Urine 1.044 (1.002-1.035); Squamous Epithelial Cell,Urine 1 /hpf (0-5)
[2018-07-11 04:31] LABS: Baso % (Auto) 0.3 % (0.0-2.0); Eos % (Auto) 0.3 % (0.0-4.0); Hematocrit 32.8 % (35.0-46.0); Hemoglobin 11.2 gm/dL (11.6-15.3); Lymph # (Auto) 0.9 th/mm3 (1.0-4.8); Lymph % (Auto) 9.3 % (9.0-44.0); Mean Corpuscular Hemoglobin 30.3 pg (27.0-34.0); Mean Corpuscular Volume 89.1 fL (80.0-100.0); Mean Platelet Volume 7.9 fL (7.0-11.0); Mono # (Auto) 0.6 th/mm3 (0.0-0.9); Mono % (Auto) 6.3 % (0.0-8.0); Neut # (Auto) 7.9 th/mm3 (1.8-7.7); Neut % (Auto) 83.8 % (16.0-70.0); Platelet Count 186 th/mm3 (150-450); Red Blood Count 3.68 mil/mm3 (4.00-5.30); Red Cell Distribution Width 14.6 % (11.6-17.2); White Blood Count 9.4 th/mm3 (4.0-11.0)
[2018-07-11 04:56] LABS: Chol/HDL Ratio 2.01 Ratio; HDL Cholesterol 86.3 mg/dL (40.0-60.0)
--- NOTE | 2018-07-11 08:09 | P.HPIM ---
History of Present Illness Primary Care Physician: Wilner De La O MD History of Present Illness: This is a 77-year-old female with a history of hypertension, hyperlipidemia, trigeminal neuralgia, A Fib on Eliquis and TIA. Patient's May 2017 then 4 days later she had her first TIA. In June she had her second TIA and was hospitalized from 06/15/17 - . [place] was [place] [facility] [place] possible [place]. Patient presented to the ER last night due to confusion, TIA/CVA. Patient's daughter talked to her on the phone around 1600 and thought patient seemed normal. Patient reports that she had multiple family members staying with her for Thanksgiving and had been doing laundry most of the day then fell asleep in the chair watching TV. PAtient's son usually talks with his mom on his way home from work. The patient did not answer and he became concerned. Patient did get in touch with her later in that evening around 1915 and thought she was confused. Patient's son reports that the patient was repeating, "I'm just trying to get it all together." The son became concerned due to patient's hx of TIAs and called 911. Patient reports that by the time EMS arrived she was talking fluently. Patient denies focal neurological symptoms. Patient at this time is A&O with no focal neurological deficit noted. Past Family Social History Past Medical History hypertension,GERD ,TIA,trigeminal neuralgia Past Surgical History tonsillectomy Family History Reviewed and noncontributory Social History in May 2017 Denies EtOH use tobacco use or illicit drug use Medications and Allergies Allergies Allergy/AdvReac Type Severity Reaction Status Date / Time No Known Allergies Allergy Verified 07/10/18 20:22 Home Medications Medication Instructions Recorded Confirmed Type apixaban [Eliquis] 5 mg PO BID 07/10/18 07/11/18 History benazepril 20 mg PO DAILY 07/10/18 07/10/18 History escitalopram oxalate 5 mg PO DAILY 07/10/18 07/10/18 History oxcarbazepine 300 mg PO BID 07/10/18 07/10/18 History pantoprazole 20 mg PO DAILY 07/10/18 07/10/18 History pravastatin 80 mg PO DAILY 07/10/18 07/10/18 History topiramate 25 mg PO DAILY 07/10/18 07/10/18 History Active Medications: Active Medications Apixaban (Eliquis) 5 mg PO BID [facility] Sodium Chloride (Ns Inj) 1,000 mls @ 70 mls/hr IV.CONT .[id number] [facility] Stop: 07/11/18 10:47 Last Admin: 07/10/18 21:05 Dose: 70 mls/hr Ceftriaxone Sodium 1,000 mg/ (Sodium Chloride) 100 mls @ 200 mls/hr IV.SIG Q24H [facility] Non-Formulary Medication (Escitalopram Oxalate [Escitalopram Oxalate]) 5 mg PO DAILY [facility] Oxcarbazepine (Trileptal) 300 mg PO BID [facility] Pantoprazole Sodium (Protonix) 20 mg PO DAILY [facility] Pravastatin Sodium (Pravachol) 80 mg PO DAILY [facility] Sodium Chloride (Ns Flush) 2 ml IV.FLUSH PRN PRN PRN Reason: FLUSH AFTER USING IV ACCESS Topiramate (Topamax) 25 mg PO DAILY [facility] Physical Exam Vital signs: Last Vital Signs Pulse 79 07/11/18 04:29 Resp 17 07/11/18 04:29 BP 133/74 07/11/18 04:29 Pulse Ox 97 07/11/18 04:29 Narrative: GENERAL: This is a well-nourished, well-developed patient, in no apparent distress. CARDIOVASCULAR: RESPIRATORY: Clear to auscultation. Breath sounds equal bilaterally. GASTROINTESTINAL: Abdomen soft, non-tender, nondistended. Normal active bowel sounds MUSCULOSKELETAL: Extremities without clubbing, cyanosis, or edema. NEURO: Alert & Oriented x4 to person, place, time, situation. Moves all ext x4 Results Labs CBC & Chem 7: 07/11/18 03:57 07/10/18 20:25 Caprini VTE Risk Assessment Caprini VTE Risk Assessment: Moderate/High Risk (score >= 2) Caprini Risk Assessment Model: Point Value = 1 Point Value = 2 Point Value = 3 Point Value = 5 Age 41-60 Minor surgery BMI > 25 kg/m2 Swollen legs Varicose veins or History of unexplained or recurrent spontaneous Oral contraceptives or hormone replacement Sepsis (< 1 month) Serious lung disease, including pneumonia (< 1 month) Abnormal pulmonary function Acute myocardial infarction Congestive heart failure (< 1 month) History of inflammatory bowel disease Medical patient at bed rest Age 61-74 Arthroscopic surgery Major open surgery (> 45 min) Laparoscopic surgery (> 45 min) Malignancy Confined to bed (> 72 hours) Immobilizing plaster cast Central venous access Age >= 75 History of VTE Family history of VTE Factor V Leiden Prothrombin [id number] Lupus anticoagulant Anticardiolipin antibodies Elevated serum homocysteine Heparin-induced thrombocytopenia Other congenital or acquired thrombophilia Stroke (< 1 month) Elective arthroplasty Hip, pelvis, or leg fracture Acute spinal cord injury (< 1 month) Prophylaxis Regimen: Total Risk Factor Score Risk Level Prophylaxis Regimen 0-1 Low Early ambulation 2 Moderate Order ONE of the following: *Sequential Compression Device (SCD) *Heparin 5000 units SQ BID 3-4 Higher Order ONE of the following medications: *Heparin 5000 units SQ TID *Enoxaparin/Lovenox 40 mg SQ daily (WT < 150 kg, CrCl > 30 mL/min) *Enoxaparin/Lovenox 30 mg SQ daily (WT < 150 kg, CrCl > 10-29 mL/min) *Enoxaparin/Lovenox 30 mg SQ BID (WT < 150 kg, CrCl > 30 mL/min) AND/OR *Sequential Compression Device (SCD) 5 or more Highest Order ONE of the following medications: *Heparin 5000 units SQ TID (Preferred with Epidurals) *Enoxaparin/Lovenox 40 mg SQ daily (WT < 150 kg, CrCl > 30 mL/min) *Enoxaparin/Lovenox 30 mg SQ daily (WT < 150 kg, CrCl > 10-29 mL/min) *Enoxaparin/Lovenox 30 mg SQ BID (WT < 150 kg, CrCl > 30 mL/min) AND *Sequential Compression Device (SCD) Assessment and Plan Plan This is a 77-year-old female with a history of hypertension, hyperlipidemia, trigeminal neuralgia, A Fib on Eliquis and TIA. Patient's May 2017 then 4 days later she had her first TIA. In June she had her second TIA and was hospitalized from 06/15/17 - 06/30/17. Patient was again [place] [facility] [place] possible T[place]. Patient presented to the ER last night due to confusion, TIA/CVA. Patient's daughter talked to her on the phone around 1600 and thought patient seemed normal. Patient reports that she had multiple family members staying with her for and had been doing laundry most of the day then fell asleep in the chair watching TV. PAtient's son usually talks with his mom on his way home from work. The patient did not answer and he became concerned. Patient did get in touch with her later in that evening around 1915 and thought she was confused. Patient's son reports that the patient was repeating, "I'm just trying to get it all together." The son became concerned due to patient's hx of TIAs and called 911. Patient reports that by the time EMS arrived she was talking fluently. Patient denies focal neurological symptoms. Patient at this time is A&O with no focal neurological deficit noted. AMS TIA vs CVA -AMS possibly related TIA vs being awoken from a sleep - 2D echocardiogram (06/29/17) - Estimated EF 50-55% - Mild aortic dilatation at the level of the sinuses of Valsalva - Mild mitral annular calcification - Mild tricuspid valve regurg - Estimated mild pulmonary HTN (40mmHg) -Continuous Telemetry Chest X-Ray 07/10/18 Mild complicated cardiomegaly otherwise negative Head CT 07/10/18 Atrophy, marked periventricular white matter changes, otherwise negative for an acute process. Head CTA 07/10/18 Negative for major branch vessel occlusion. Neck CTA 07/10/18 Negative for hemodynamically significant stenosis or source of emboli. - on arrival patient WBC was 14.1 and UA showed Moderate Leukocyte Esterase and patient was started on Rocephin for possible UTI - Consult to Neurology, Dr. Diggs Hyperlipidimia Continue home pravastatin, LDL 77 Atrial Fibrillation Continue home Eliquis 5 mg BID Trigeminal neuralgia Chronic Patient Neurologist, Dr. Hernandez, manages outpatient Hypertension Hold benazepril 20 mg by mouth twice a day monitor blood pressure trend DVT prophylaxis with Eliquis Plan to DC home in stable condition on a heart healthy diet with no activity restrictions after being seen and cleared by Dr. Diggs patient to continue home medications and follow up with PCP and Dr. Diggs Attending Attestation Patient examined. Assessment and plan formulated with Edith Krueger PA-C. I agree with the above.
[2018-07-11] MEDS ORDERED: Topiramate 25 MG Tablet PO SCH (09:00)
[2018-07-11] MEDS ORDERED: Pantoprazole Sodium 20 MG DR Tablet PO SCH (09:00)
[2018-07-11] MEDS ORDERED: Escitalopram 10 MG Tablet PO SCH (09:00)
[2018-07-11] MEDS ORDERED: OXcarbazepine 300 MG Tablet PO SCH (09:00)
[2018-07-11 10:39] VITALS: RESP 16
--- NOTE | 2018-07-11 15:45 | P.CONNEU ---
History of Present Illness Service: Neurology Primary Care Provider: Wilner De La O MD Chief Complaint: Confusion History of Present Illness: 78-year-old female on oral anticoagulation admitted for confusional episode. Apparently noted by her son after she had woken up out of sleep. Feels back to herself states she just was more tired than usual. Denies any headache vision loss focal weakness or any language disturbance. Denies any noncompliance to medication. States she would like to go home. CTA brain carotids negative for any significant vaso-occlusive disease. Approximately 1 year ago she had similar symptoms in the workup was negative. Including EEG and MRI scan. Review of Systems All other systems reviewed negative except as stated [facility] - History History Provided By: Patient - Medical History Medical History: Medical History (Last Reviewed 07/11/18 @ 09:07 by Paolo Gupta) Hypertension Polio TIA (transient ischemic attack) - Surgical History Surgical History: Surgical History (Last Reviewed 07/11/18 @ 09:07 by Paolo Gupta) Skin cancer - Tobacco History Second Hand Smoke Exposure: No Tobacco Use In Past 30 Days: No Smoking Status: Never smoker - Alcohol History How Often Do You Have a Drink Containing Alcohol: Never - Substance Use History Substance History: No History of Abuse - Travel History Recent Travel in the [place] Within the Last 8 Weeks: No Recent Travel Out of the Country Within the Last 8 Weeks: No - Immunization History Tetanus Immunization: Unsure Medications and Allergies Active Medications: Active Medications Apixaban (Eliquis) 5 mg PO BID [facility] Last Admin: 07/11/18 10:33 Dose: 5 mg Escitalopram Oxalate (Lexapro) 5 mg PO DAILY [facility] Last Admin: 07/11/18 10:33 Dose: 5 mg Ceftriaxone Sodium 1,000 mg/ (Sodium Chloride) 100 mls @ 200 mls/hr IV.SIG Q24H [facility] Oxcarbazepine (Trileptal) 300 mg PO BID [facility] Last Admin: 07/11/18 10:59 Dose: 300 mg Pantoprazole Sodium (Protonix) 20 mg PO DAILY [facility] Last Admin: 07/11/18 10:32 Dose: 20 mg Pravastatin Sodium (Pravachol) 80 mg PO DAILY [facility] Last Admin: 07/11/18 10:32 Dose: 80 mg Sodium Chloride (Ns Flush) 2 ml IV.FLUSH PRN PRN PRN Reason: FLUSH AFTER USING IV ACCESS Topiramate (Topamax) 25 mg PO DAILY [facility] Last Admin: 07/11/18 10:32 Dose: 25 mg Allergies Allergy/AdvReac Type Severity Reaction Status Date / Time No Known Allergies Allergy Verified 07/10/18 20:22 Home Medications Medication Instructions Recorded Confirmed Type apixaban [Eliquis] 5 mg PO BID 07/10/18 07/11/18 History benazepril 20 mg PO DAILY 07/10/18 07/10/18 History escitalopram oxalate 5 mg PO DAILY 07/10/18 07/10/18 History oxcarbazepine 300 mg PO BID 07/10/18 07/10/18 History pantoprazole 20 mg PO DAILY 07/10/18 07/10/18 History pravastatin 80 mg PO DAILY 07/10/18 07/10/18 History topiramate 25 mg PO DAILY 07/10/18 07/10/18 History Exam Vital signs: Vital Signs 07/10/18 20:22 07/10/18 20:31 07/10/18 20:42 Temperature Pulse Rate 109 H 109 H Respiratory Rate 20 20 Blood Pressure 149/71 H 149/71 H Pulse Oximetry 94 L 95 96 07/10/18 21:06 07/10/18 22:01 07/10/18 23:58 Temperature Pulse Rate 95 H 88 80 Respiratory Rate 23 20 14 Blood Pressure 148/63 H 137/68 140/74 Pulse Oximetry 95 95 96 07/11/18 01:44 07/11/18 04:29 07/11/18 07:00 Temperature 98.0 F Pulse Rate 74 79 71 Respiratory Rate 18 17 16 Blood Pressure 105/54 L 133/74 142/78 H Pulse Oximetry 95 97 100 07/11/18 10:00 07/11/18 10:48 07/11/18 12:00 Temperature Pulse Rate 68 68 71 Respiratory Rate 16 16 16 Blood Pressure 168/82 H 154/77 H 146/79 H Pulse Oximetry 99 Intake & Output 07/10/18 07/11/18 07/11/18 18:59 06:59 18:59 Intake Total 100 / 100 1000 / 1000 Balance 100 / 100 1000 / 1000 Weight 54.431 kg 54.43 kg Intake: IV 100 / 100 1000 / 1000 NS Inj 1,000 ML @ 70 mls/hr IV. 1000 / 1000 CONT .[id number] [facility] Rx#:[id number] Rocephin Inj 1,000 MG In NS Inj 100 / 100 100 ML @ 200 mls/hr IV.SIG ONCE ONE Rx#:[id number] Other: # Voids 2 Weight On Admission 54.43 kg Narrative: GENERAL: in NAD, SKIN: Warm and dry. HEAD: Atraumatic. Normocephalic. EYES: Pupils equal and round. No scleral icterus. ENT: No nasal bleeding or discharge. NECK: Trachea midline. No JVD. CARDIOVASCULAR: Regular rate and rhythm. RESPIRATORY: No accessory muscle use. GASTROINTESTINAL: Abdomen soft, non-tender, nondistended. MUSCULOSKELETAL: Extremities without clubbing, cyanosis, or edema. No obvious deformities. NEUROLOGICAL: Awake and alert. Oriented x3, no aphasia, fluent articulate, No facial asymmetry, OU 3-2mm, eomi, VFF, No drift, Motor grossly within normal limits. Five out of 5 muscle strength in the arms and legs. Tone normal in all 4 limbs, Sensory normal in all 4 extremities to pin, msr 1-2+ sym, no clonus, planterflexor, gait not assessed secondary fall risk PSYCHIATRIC: Appropriate mood and affect; insight and judgment normal. - Constitutional no acute distress - Routine HEENT Exam Head: Present: normocephalic Eye: Present: EOMI Results - Labs CBC & Chem 7: 07/11/18 03:57 07/10/18 20:25 Labs: Laboratory Results - last 24 hr 07/10/18 07/10/18 07/10/18 20:25 20:25 20:25 WBC 14.1 H RBC 3.95 L Hgb 11.7 POC Hgb (Calc) 11.9 Hct 34.9 L POC Hct 35.0 MCV 88.3 MCH 29.6 MCHC 33.5 RDW 14.4 Plt Count 220 MPV 7.8 Neut % (Auto) 88.9 H Lymph % (Auto) 3.0 L [place] % (Auto) 7.7 Eos % (Auto) 0.1 Baso % (Auto) 0.3 Neut # (Auto) 12.6 H Lymph # (Auto) 0.4 L [place] # (Auto) 1.1 H Eos # (Auto) 0.0 Baso # (Auto) 0.0 WBC Differential . Differential Comment Auto diff final PT 10.2 INR 1.0 APTT 28.7 POC Sodium 139 Sodium 140 POC Potassium 3.8 Potassium 3.8 POC Chloride 100 L Chloride 105 Carbon Dioxide 29.9 Anion Gap 5 POC BUN 12 BUN 13 Creatinine 0.88 POC Creatinine 0.8 Estimated GFR 62 L POC Glucose 101 Random Glucose 100 Calcium 8.6 Total Creatine Kinase 213 H CK-MB (CK-2) 2.3 CK-MB (CK-2) % 1.1 Troponin I Less than 0.02 L Triglycerides Cholesterol LDL Cholesterol, Calc HDL Cholesterol Cholesterol/HDL Ratio Urine Color Urine Clarity Urine pH Ur Specific [place] Urine Protein Urine Glucose (UA) Urine Ketones Urine Occult Blood Urine Nitrate Urine Bilirubin Urine Urobilinogen Ur Leukocyte Esterase Urine RBC Urine WBC Ur Squamous Epith Cells Urine Bacteria Urine Mucus Micro UA Comment Ur Microscopic Review Urine Culture Comments 07/10/18 07/10/18 07/11/18 20:25 23:31 03:57 WBC 9.4 RBC 3.68 L Hgb 11.2 L POC Hgb (Calc) Hct 32.8 L POC Hct MCV 89.1 MCH 30.3 MCHC 34.0 RDW 14.6 Plt Count 186 MPV 7.9 Neut % (Auto) 83.8 H Lymph % (Auto) 9.3 [place] % (Auto) 6.3 Eos % (Auto) 0.3 Baso % (Auto) 0.3 Neut # (Auto) 7.9 H Lymph # (Auto) 0.9 L [place] # (Auto) 0.6 Eos # (Auto) 0.0 Baso # (Auto) 0.0 WBC Differential . Differential Comment Auto diff final PT INR APTT POC Sodium Sodium POC Potassium Potassium POC Chloride Chloride Carbon Dioxide Anion Gap POC BUN BUN Creatinine POC Creatinine Estimated GFR POC Glucose 101 Random Glucose Calcium Total Creatine Kinase CK-MB (CK-2) CK-MB (CK-2) % Troponin I Triglycerides Cholesterol LDL Cholesterol, Calc HDL Cholesterol Cholesterol/HDL Ratio Urine Color Yellow Urine Clarity Hazy H Urine pH 7.0 Ur Specific [place] 1.044 H Urine Protein Negative Urine Glucose (UA) Negative Urine Ketones Trace H Urine Occult Blood Negative Urine Nitrate Negative Urine Bilirubin Negative Urine Urobilinogen Less than 2 Ur Leukocyte Esterase Moderate H Urine RBC 1 Urine WBC 5 Ur Squamous Epith Cells 1 Urine Bacteria Occasional H Urine Mucus Few H Micro UA Comment Culture not ind Ur Microscopic Review Not Reportable Urine Culture Comments Culture not ind 07/11/18 03:57 WBC RBC Hgb POC Hgb (Calc) Hct POC Hct MCV MCH MCHC RDW Plt Count MPV Neut % (Auto) Lymph % (Auto) [place] % (Auto) Eos % (Auto) Baso % (Auto) Neut # (Auto) Lymph # (Auto) [place] # (Auto) Eos # (Auto) Baso # (Auto) WBC Differential Differential Comment PT INR APTT POC Sodium Sodium POC Potassium Potassium POC Chloride Chloride Carbon Dioxide Anion Gap POC BUN BUN Creatinine POC Creatinine Estimated GFR POC Glucose Random Glucose Calcium Total Creatine Kinase CK-MB (CK-2) CK-MB (CK-2) % Troponin I Triglycerides 52 Cholesterol 174 LDL Cholesterol, Calc 77 HDL Cholesterol 86.3 H Cholesterol/HDL Ratio 2.01 Urine Color Urine Clarity Urine pH Ur Specific [place] Urine Protein Urine Glucose (UA) Urine Ketones Urine Occult Blood Urine Nitrate Urine Bilirubin Urine Urobilinogen Ur Leukocyte Esterase Urine RBC Urine WBC Ur Squamous Epith Cells Urine Bacteria Urine Mucus Micro UA Comment Ur Microscopic Review Urine Culture Comments - Imaging Impressions Chest X-Ray 07/10/18 20:27 CONCLUSION: . Mild complicated cardiomegaly otherwise negative Head CT 07/10/18 20:27 CONCLUSION: Atrophy, marked periventricular white matter changes, otherwise negative for an acute process. Jez Finch MD FACR Report was called by above Head CTA 07/10/18 20:27 CONCLUSION: 1. Negative for major branch vessel occlusion. Neck CTA 07/10/18 20:27 CONCLUSION: 1. Negative for hemodynamically significant stenosis or source of emboli. Review/Management - Diagnosis (1) Acute confusional state Code(s): F05 - Delirium due to known physiological condition Status: Acute Current Visit: Yes (2) Trigeminal neuralgia Code(s): G50.0 - Trigeminal neuralgia Status: Acute Current Visit: Yes - Review/Management Plan: Recurrent episode occurring approximately 1 year after the previous which was June 2017 workup negative at that time and negative thus far at this time. Recommendations Could repeat EEG however patient declines and would like to go home and do it outpatient Monitor for any emerging mild cognitive impairment; repeat routine EEG is negative she may require long-term ambulatory monitoring She will follow-up with her primary care physician and neurologist No driving until seen by both of these physicians and cleared by them
--- NOTE | 2018-07-11 16:10 | ECG ---
Date Performed: 07/10/2018 Time Performed: 21:06:51 PTAGE: 78 years EKG: Sinus rhythm WITH OCCASIONAL SUPRAVENTRICULAR PREMATURE COMPLEXES POSSIBLE LEFT ATRIAL ENLARGEMENT NONSPECIFIC ST & T-WAVE ABNORMALITY BORDERLINE ECG PREVIOUS TRACING : 08/06/2017 21.34 Since the previous tracing, no significant change noted DOCTOR: Esther Chavez Interpretating Date/Time 07/11/2018 16:07:32
[2018-07-11 16:52] VITALS: BP 174/82; PULSE 69; TEMP 97.8; O2SAT 96
== END 2018-07-11 17:05 | disposition home or self-care (01) ==
LOC: NEPC 20:19 → NEDA 20:19 → NEDH 07-11 04:35 → NEPHCDU 07-11 10:56
PROVIDERS: ADMIT Hospitalist; ATTEND Hospitalist